=== PATIENT | male | born 1940 | race Caucasian/White ===

== ENCOUNTER → 2017-06-30 | Outpatient (CLI) | payer MEDICARE ==
[~2017-06-30] MED LIST: AMIO400T5 PO; AMLO5TAB2 PO; ASP81TEC PO; ASPI-84 PO; CARV3.122 PO; CARV6.252 PO; CYCL10TA9 PO; DABI150C5 PO; FISH1CAP15 PO; FURO40TA4 PO; GLUC-113 PO; HCT25T PO; IRB150T PO; IRBE300T9 PO; MULT-974 PO; NAPR-243 PO; OMEG-12 PO; OXYC-12 PO; POTA10CA43 PO; [UNRECOGNIZED DRUG - REMARK]
== END ==
LOC: CARD 13:38
PROVIDERS: ATTEND Physician Assistant
DX: I48.0 Paroxysmal atrial fibrillation (principal); I50.22 Chronic systolic (congestive) heart failure; I11.0 Hypertensive heart disease with heart failure; E78.2 Mixed hyperlipidemia
CPT/HCPCS: 93306

== ENCOUNTER 2018-05-07 13:03 | Outpatient (CLI) | payer MEDICARE ==
[~2018-05-07] VITALS: Ht 188 cm; Wt 112.5 kg
[2018-05-07 13:26] VITALS: BP 142/86
[2018-05-07] MEDS ORDERED: IRBE300T18 PO (13:52)
[2018-05-07] MEDS ORDERED: POTA10TA10 PO (13:52)
[2018-05-07] MEDS ORDERED: FISH1CAP15 PO (13:52)
[2018-05-07] MEDS ORDERED: GLUC-113 PO (13:52)
[2018-05-07] MEDS ORDERED: AMLO5TAB7 PO (13:52)
[2018-05-07] MEDS ORDERED: CARV6.252 PO (13:52)
[2018-05-07] MEDS ORDERED: MULT-178 PO (13:52)
[2018-05-07] MEDS ORDERED: FURO40TA4 PO (13:52)
[2018-05-07] MEDS ORDERED: APIX5TAB PO (13:52)
== END 2018-05-07 13:30 | disposition home or self-care (01) ==
LOC: PREOP 13:03
PROVIDERS: ATTEND Podiatrist Foot Surgery
DX: Z01.818 Encounter for other preprocedural examination (principal)
CPT/HCPCS: 87081

== ENCOUNTER 2018-05-11 06:23 | Day surgery (SDC) | payer MEDICARE ==
[~2018-05-11] VITALS: Ht 188 cm; Wt 108.0 kg
[~2018-05-11 06:23] MED LIST changes: +AMLO5TAB7 PO; +APIX5TAB PO; +IRBE300T18 PO; +MULT-178 PO; +POTA10TA10 PO
[2018-05-11] MEDS ORDERED: LACTATED RINGERS 1,000 ML IV PRN (06:28)
[2018-05-11] MEDS ORDERED: ceFAZolin INJECTION 1,000 MG in NS (IVPB) 50 ML IV ONE (06:30)
--- OUTSIDE RECORDS SUMMARY | 2018-05-11 06:40 | XMS REPORT | Continuity of Care Document ---
Author Author [facility] Organization [facility] Address Unknown Phone Unavailable Allergies Active Description Code Type Severity Reaction Onset Reported/Identified Relationship to Patient Clinical Status Yes No Known Drug Allergies [id number] Drug Allergy Unknown N/A 08/06/2008 Medications There is no data. Problems Date Dx Coded Attending Type Code Diagnosis Diagnosed By 12/28/2009 Ot 724.2 12/28/2009 Ot 791.9 10/29/2010 Ot 276.8 10/29/2010 Ot 401.9 10/29/2010 Ot 425.4 10/29/2010 Ot 427.31 11/29/2011 Ot 727.1 BUNION 01/28/2012 Ot 427.31 ATRIAL FIBRILLATION 01/28/2012 Ot 785.1 PALPITATIONS 04/04/2014 FRANKLIN KUHN DO Ot 327.23 OBSTRUCTIVE SLEEP APNEA (ADULT) (PEDIATR 05/15/2014 NIURKA ZALDIVAR MD Ot 401.9 05/15/2014 NIURKA ZALDIVAR MD Ot 427.31 05/15/2014 NIURKA ZALDIVAR MD P Ot 428.0 05/15/2014 NIURKA ZALDIVAR MD Ot 715.36 05/17/2014 NIURKA ZALDIVAR MD Ot 272.4 HYPERLIPIDEMIA NEC/NOS 05/17/2014 NIURKA ZALDIVAR MD P Ot 401.9 HYPERTENSION NOS 05/17/2014 NIURKA ZALDIVAR MD P Ot 425.4 PRIM CARDIOMYOPATHY NEC 05/17/2014 NIURKA ZALDIVAR MD Ot 427.31 ATRIAL FIBRILLATION 05/17/2014 NIURKA ZALDIVAR MD Ot 428.0 CONGESTIVE HEART FAILURE NOS 05/17/2014 NIURKA ZALDIVAR MD Ot 715.36 LOC OSTEOARTH NOS-L/LEG 05/17/2014 NIURKA ZALDIVAR MD Ot V03.82 PROPHYLACTIC VACC AGAINST STREPTOCOCCUS 06/03/2014 NIURKA ZALDIVAR MD Ot 715.36 06/03/2014 NIURKA ZALDIVAR MD Ot 780.79 06/03/2014 ZEN PARKS, NIURKA P Ot V72.63 06/03/2014 ZEN PARKS, NIURKA P Ot V72.81 06/03/2014 ZEN PARKS, NIURKA P Ot V72.83 06/03/2014 ZEN PARKS, NIURKA P Ot V74.8 09/17/2014 BASSAM PA, SCOTT K Ot 272.4 09/17/2014 BASSAM PA, SCOTT K Ot 401.9 09/17/2014 BASSAM PA, SCOTT K Ot 427.31 09/17/2014 ANNMARIE-LIZA PA, SCOTT K Ot 428.0 09/17/2014 BASSAM PA, SCOTT K Ot 272.4 09/17/2014 ANNMARIE-LIZA PA, SCOTT K Ot 401.9 09/17/2014 ANNMARIE-LIZA PA, SCOTT K Ot 427.31 09/17/2014 BASSAM PA, SCOTT K Ot 428.0 09/17/2014 BASSAM PA, SCOTT K Ot 272.4 09/17/2014 ANGUIANO-LIZA PA, SCOTT K Ot 401.9 09/17/2014 ANGUIANO-LIZA PA, SCOTT K Ot 427.31 09/17/2014 BASSAM PA, SCOTT K Ot 428.0 09/23/2014 Ot 401.9 09/23/2014 Ot 428.30 09/23/2014 Ot 397.0 09/23/2014 Ot 401.9 09/23/2014 Ot 424.0 09/23/2014 Ot 427.31 09/23/2014 Ot 428.0 09/23/2014 Ot 428.0 09/23/2014 Ot 397.0 09/23/2014 Ot 424.0 09/23/2014 Ot 428.0 09/23/2014 Ot 727.1 09/23/2014 Ot V72.83 09/23/2014 Ot V74.8 09/23/2014 Ot 397.0 09/23/2014 Ot 401.9 09/23/2014 Ot 424.0 09/23/2014 Ot 427.31 09/23/2014 Ot 428.0 09/23/2014 JHONY PARKS, MURTAZA Pena Ot 272.4 09/23/2014 JHONY PARKS, BASHAR J Ot 401.9 09/23/2014 JHONY PARKS, MURTAZA J Ot 427.31 09/23/2014 JHONY PARKS, MURTAZA J Ot 428.0 09/23/2014 ZEN PARKS, NIURKA P Ot 715.36 09/23/2014 ZEN PARKS, NIURKA P Ot 780.79 09/23/2014 ZEN PARKS, NIURKA P Ot V72.63 09/23/2014 ZEN PARKS, NIURKA P Ot V72.81 09/23/2014 ZEN PARKS, NIURKA P Ot V72.83 09/23/2014 ZEN PARKS, NIURKA P Ot V74.8 09/23/2014 ANGUIANO-LIZA PA, SCOTT K Ot 272.4 09/23/2014 ANGUIANO-LIZA PA, SCOTT K Ot 401.9 09/23/2014 ANGUIANO-LIZA PA, SCOTT K Ot 427.31 09/23/2014 ANGUIANO-LIZA PA, SCOTT K Ot 428.0 10/07/2014 ANGUIANO-LIZA PA, SCOTT K Ot 272.4 10/07/2014 ANGUIANO-LIZA PA, SCOTT K Ot 401.9 10/07/2014 ANGUIANO-LIZA PA, SCOTT K Ot 427.31 10/07/2014 ANGUIANO-LIZA PA, SCOTT K Ot 428.0 10/24/2014 ANGUIANO-LIZA PA, SCOTT K Ot 272.4 10/24/2014 ANGUIANO-LIZA PA, SCOTT K Ot 401.9 10/24/2014 ANGUIANO-LIZA PA, SCOTT K Ot 427.31 10/24/2014 ANGUIANO-LIZA PA, SCOTT K Ot 428.0 10/24/2014 JHONY PARKS, MURTAZA Pena Ot 428.0 10/24/2014 JHONY PARKS, MURTAZA Pena Ot 429.9 11/19/2014 JHONY PARKS, MURTAZA J Ot 428.0 11/19/2014 JHONY PARKS, MURTAZA J Ot 429.9 05/06/2015 JHONY PARKS, MURTAZA Pena Ot E78.2 05/06/2015 JHONY PARKS, MURTAZA Pena Ot I10 05/06/2015 JHONY PARKS, MURTAZA Pena Ot I48.0 05/06/2015 JHONY PARKS, MURTAZA Pena Ot I50.22 05/13/2015 MURTZAA BOOKER MD Ot E78.2 05/13/2015 MURTAZA BOOKER MD Ot I10 05/13/2015 MURTAZA BOOKER MD Ot I48.0 05/13/2015 MURTAZA BOOKER MD Ot I50.22 05/12/2016 Ot 397.0 TRICUSPID VALVE DISEASE 05/12/2016 Ot 401.9 HYPERTENSION NOS 05/12/2016 Ot 424.0 MITRAL VALVE DISORDER 05/12/2016 Ot 427.31 ATRIAL FIBRILLATION 05/12/2016 Ot 428.0 CONGESTIVE HEART FAILURE NOS 05/12/2016 Ot 428.0 CONGESTIVE HEART FAILURE NOS 05/12/2016 Ot 397.0 TRICUSPID VALVE DISEASE 05/12/2016 Ot 424.0 MITRAL VALVE DISORDER 05/12/2016 Ot 428.0 CONGESTIVE HEART FAILURE NOS 05/12/2016 Ot 727.1 BUNION 05/12/2016 Ot V72.83 EXAM PRE- OPERATIVE NEC 05/12/2016 Ot V74.8 SCREEN- BACTERIAL DIS NEC 05/12/2016 Ot 397.0 TRICUSPID VALVE DISEASE 05/12/2016 Ot 401.9 HYPERTENSION NOS 05/12/2016 Ot 424.0 MITRAL VALVE DISORDER 05/12/2016 Ot 427.31 ATRIAL FIBRILLATION 05/12/2016 Ot 428.0 CONGESTIVE HEART FAILURE NOS 05/12/2016 MURTAZA BOOKER MD Ot 272.4 HYPERLIPIDEMIA NEC/NOS 05/12/2016 MURTAZA BOOKER MD Ot 401.9 HYPERTENSION NOS 05/12/2016 MURTAZA BOOKER MD Ot 427.31 ATRIAL FIBRILLATION 05/12/2016 MURTAZA BOOKER MD Ot 428.0 CONGESTIVE HEART FAILURE NOS 05/12/2016 NIURKA ZALDIVAR MD Ot 715.36 LOC OSTEOARTH NOS-L/LEG 05/12/2016 NIURKA ZALDIVAR MD Ot 780.79 OTH MALAISE FATIGUE 05/12/2016 NIURKA ZALDIVAR MD Ot V72.63 PRE-PROCEDURAL LABORATORY EXAMINATION 05/12/2016 NIURKA ZALDIVAR MD Ot V72.81 [id number] CARDIOVASCULAR 05/12/2016 NIURKA ZALDIVAR MD Ot V72.83 EXAM PRE-OPERATIVE NEC 05/12/2016 NIURKA ZALDIVAR MD Ot V74.8 SCREEN-BACTERIAL DIS NEC 05/12/2016 SCOTT BRADSHAW Ot 272.4 HYPERLIPIDEMIA NEC/NOS 05/12/2016 SCOTT BRADSHAW Ot 401.9 HYPERTENSION NOS 05/12/2016 SCOTT BRADSHAW Ot 427.31 ATRIAL FIBRILLATION 05/12/2016 SCOTT BRADSHAW Ot 428.0 CONGESTIVE HEART FAILURE NOS 05/12/2016 MURTAZA BOOKER MD Ot 428.0 CONGESTIVE HEART FAILURE NOS 05/12/2016 MURTAZA BOOKER MD Ot 429.9 HEART DISEASE NOS 05/12/2016 MURTAZA BOOKER MD Ot E78.2 MIXED HYPERLIPIDEMIA 05/12/2016 MURTAZA BOOKER MD Ot I10 ESSENTIAL (PRIMARY) HYPERTENSION 05/12/2016 MURTAZA BOOKER MD Ot I48.0 PAROXYSMAL ATRIAL FIBRILLATION 05/12/2016 MURTAZA BOOKER MD Ot I50.22 CHRONIC SYSTOLIC (CONGESTIVE) HEART FAIL 05/13/2016 MURTAZA BOOKER MD Ot E78.2 MIXED HYPERLIPIDEMIA 05/13/2016 MURTAZA BOOKER MD Ot I11.0 HYPERTENSIVE HEART DISEASE WITH HEART FA 05/13/2016 MURTAZA BOOKER MD Ot I50.22 CHRONIC SYSTOLIC (CONGESTIVE) HEART FAIL 06/03/2016 MURTAZA BOOKER MD Ot E78.2 MIXED HYPERLIPIDEMIA 06/03/2016 MURTAZA BOOKER MD Ot I11.0 HYPERTENSIVE HEART DISEASE WITH HEART FA 06/03/2016 MURTAZA BOOKER MD Ot I50.22 CHRONIC SYSTOLIC (CONGESTIVE) HEART FAIL 06/09/2016 MURTAZA BOOKER MD Ot E78.2 MIXED HYPERLIPIDEMIA 06/09/2016 MURTAZA BOOKER MD Ot I11.0 HYPERTENSIVE HEART DISEASE WITH HEART FA 06/09/2016 MURTAZA BOOKER MD Ot I50.22 CHRONIC SYSTOLIC (CONGESTIVE) HEART FAIL 06/26/2017 Ot 397.0 TRICUSPID VALVE DISEASE 06/26/2017 Ot 401.9 HYPERTENSION NOS 06/26/2017 Ot 424.0 MITRAL VALVE DISORDER 06/26/2017 Ot 427.31 ATRIAL FIBRILLATION 06/26/2017 Ot 428.0 CONGESTIVE HEART FAILURE NOS 06/26/2017 MURTAZA BOOKER MD Ot 272.4 HYPERLIPIDEMIA NEC/NOS 06/26/2017 MURTAZA BOOKER MD Ot 401.9 HYPERTENSION NOS 06/26/2017 MURTAZA BOOKER MD Ot 427.31 ATRIAL FIBRILLATION 06/26/2017 MURTAZA BOOKER MD Ot 428.0 CONGESTIVE HEART FAILURE NOS 06/26/2017 NIURKA ZALDIVAR MD Ot 715.36 LOC OSTEOARTH NOS-L/LEG 06/26/2017 NIURKA ZALDIVAR MD Ot 780.79 OTH MALAISE FATIGUE 06/26/2017 NIURKA ZALDIVAR MD Ot V72.63 PRE-PROCEDURAL LABORATORY EXAMINATION 06/26/2017 NIURKA ZALDIVAR MD Ot V72.81 [id number] CARDIOVASCULAR 06/26/2017 NIURKA ZALDIVAR MD Ot V72.83 EXAM PRE-OPERATIVE NEC 06/26/2017 NIURKA ZALDIVAR MD Ot V74.8 SCREEN-BACTERIAL DIS NEC 06/26/2017 SCOTT BRADSHAW Ot 272.4 HYPERLIPIDEMIA NEC/NOS 06/26/2017 SCOTT BRADSHAW Ot 401.9 HYPERTENSION NOS 06/26/2017 SCOTT BRADSHAW Ot 427.31 ATRIAL FIBRILLATION 06/26/2017 SCOTT BRADSHAW Ot 428.0 CONGESTIVE HEART FAILURE NOS 06/26/2017 MURTAZA BOOKER MD Ot 428.0 CONGESTIVE HEART FAILURE NOS 06/26/2017 MURTAZA BOOKER MD Ot 429.9 HEART DISEASE NOS 06/26/2017 MURTAZA BOOKER MD Ot E78.2 MIXED HYPERLIPIDEMIA 06/26/2017 MURTAZA BOOKER MD Ot I10 ESSENTIAL (PRIMARY) HYPERTENSION 06/26/2017 MURTAZA BOOKER MD Ot I48.0 PAROXYSMAL ATRIAL FIBRILLATION 06/26/2017 MURTAZA BOOKER MD Ot I50.22 CHRONIC SYSTOLIC (CONGESTIVE) HEART FAIL 06/26/2017 MURTAZA BOOKER MD Ot E78.2 MIXED HYPERLIPIDEMIA 06/26/2017 MURTAZA BOOKER MD Ot I11.0 HYPERTENSIVE HEART DISEASE WITH HEART FA 06/26/2017 MURTAZA BOOKER MD Ot I50.22 CHRONIC SYSTOLIC (CONGESTIVE) HEART FAIL 07/03/2017 SCOTT BRADSHAW Ot E78.2 MIXED HYPERLIPIDEMIA 07/03/2017 SCOTT BRADSHAW Ot I11.0 HYPERTENSIVE HEART DISEASE WITH HEART FA 07/03/2017 ANGUIANO-LIZA PA, SCOTT K Ot I48.0 PAROXYSMAL ATRIAL FIBRILLATION 07/03/2017 BASSAM YANEZ, SCOTT K Ot I50.22 CHRONIC SYSTOLIC (CONGESTIVE) HEART FAIL 07/21/2017 BASSAM YANEZ, SCOTT K Ot E78.2 MIXED HYPERLIPIDEMIA 07/21/2017 BASSAM YANEZ, SCOTT K Ot I11.0 HYPERTENSIVE HEART DISEASE WITH HEART FA 07/21/2017 BASSAM YANEZ, SCOTT K Ot I48.0 PAROXYSMAL ATRIAL FIBRILLATION 07/21/2017 BASSAM YANEZ, SCOTT K Ot I50.22 CHRONIC SYSTOLIC (CONGESTIVE) HEART FAIL 07/26/2017 BASSAM YANEZ, SCOTT K Ot E78.2 MIXED HYPERLIPIDEMIA 07/26/2017 BASSAM YANEZ, SCOTT K Ot I11.0 HYPERTENSIVE HEART DISEASE WITH HEART FA 07/26/2017 BASSAM YANEZ, SCOTT K Ot I48.0 PAROXYSMAL ATRIAL FIBRILLATION 07/26/2017 BASSAM YANEZ, SCOTT K Ot I50.22 CHRONIC SYSTOLIC (CONGESTIVE) HEART FAIL 05/07/2018 JHONY PARKS, MURTAZA Pena Ot 272.4 HYPERLIPIDEMIA NEC/NOS 05/07/2018 MURTAZA BOOKER MD Ot 401.9 HYPERTENSION NOS 05/07/2018 MURTAZA BOOKER MD Ot 427.31 ATRIAL FIBRILLATION 05/07/2018 MURTAZA BOOKER MD Ot 428.0 CONGESTIVE HEART FAILURE NOS 05/07/2018 NIURKA ZALDIVAR MD Ot 715.36 LOC OSTEOARTH NOS-L/LEG 05/07/2018 NIURKA ZALDIVAR MD Ot 780.79 OTH MALAISE FATIGUE 05/07/2018 NIURKA ZALDIVAR MD Ot V72.63 PRE-PROCEDURAL LABORATORY EXAMINATION 05/07/2018 NIURKA ZALDIVAR MD Ot V72.81 [id number] CARDIOVASCULAR 05/07/2018 NIURKA ZALDIVAR MD Ot V72.83 EXAM PRE-OPERATIVE NEC 05/07/2018 NIURKA ZALDIVAR MD Ot V74.8 SCREEN-BACTERIAL DIS NEC 05/07/2018 SCOTT BRADSHAW Ot 272.4 HYPERLIPIDEMIA NEC/NOS 05/07/2018 SOCTT BRADSHAW Ot 401.9 HYPERTENSION NOS 05/07/2018 SCOTT BRADSHAW Ot 427.31 ATRIAL FIBRILLATION 05/07/2018 SCOTT BRADSHAW Ot 428.0 CONGESTIVE HEART FAILURE NOS 05/07/2018 JHONY PARKS, MURTAZA Pena Ot 428.0 CONGESTIVE HEART FAILURE NOS 05/07/2018 JHONY PARKS, MURTAZA Pena Ot 429.9 HEART DISEASE NOS 05/07/2018 JHONY PARKS, MURTAZA Pena Ot E78.2 MIXED HYPERLIPIDEMIA 05/07/2018 JHONY PARKS, MURTAZA Pena Ot I10 ESSENTIAL (PRIMARY) HYPERTENSION 05/07/2018 MURTAZA BOOKER MD Ot I48.0 PAROXYSMAL ATRIAL FIBRILLATION 05/07/2018 MURTAZA BOOKER MD Ot I50.22 CHRONIC SYSTOLIC (CONGESTIVE) HEART FAIL 05/07/2018 MURTAZA BOOKER MD Ot E78.2 MIXED HYPERLIPIDEMIA 05/07/2018 MURTAZA BOOKER MD Ot I11.0 HYPERTENSIVE HEART DISEASE WITH HEART FA 05/07/2018 MURTAZA BOOKER MD Ot I50.22 CHRONIC SYSTOLIC (CONGESTIVE) HEART FAIL 05/07/2018 SCOTT BRADSHAW Ot E78.2 MIXED HYPERLIPIDEMIA 05/07/2018 SCOTT BRADSHAW Ot I11.0 HYPERTENSIVE HEART DISEASE WITH HEART FA 05/07/2018 SCOTT BRADSHAW Ot I48.0 PAROXYSMAL ATRIAL FIBRILLATION 05/07/2018 SCOTT BRADSHAW Ot I50.22 CHRONIC SYSTOLIC (CONGESTIVE) HEART FAIL 05/09/2018 STEFFI FARIA DPM Ot Z01.818 ENCOUNTER FOR OTHER PREPROCEDURAL EXAMIN Procedures Code Description Performed By Performed On 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 Visit Date/Time Discharge Status Pt. Type Provider Facility Loc./Unit Complaint [id number] 05/07/2018 13:03:00 05/07/2018 13:30:00 DIS Outpatient STEFFI FARIA DPM [facility] PREOP TAILOR BUNION [id number] 06/30/2017 13:38:00 06/30/2017 23:59:59 CLS Outpatient SCOTT BRADSHAW [facility] CARD I48.0 AF [id number] 05/12/2016 11:39:00 05/12/2016 23:59:59 CLS Outpatient MURTAAZ BOOKER MD [facility] CARD CHF, HTN [id number] 04/16/2015 08:47:00 04/16/2015 23:59:59 CLS Outpatient MURTAZA BOOKER MD [facility] CARD AF,CHF,HTN,HLP [id number] 09/23/2014 12:34:00 09/23/2014 23:59:59 CLS Outpatient MURTAZA BOOKER MD [facility] CARD CHF, DYASTOLIC DYSFUNCTION [id number] 09/12/2014 13:23:00 09/12/2014 23:59:59 CLS Outpatient SCOTT BRADSHAW [facility] CARD AFIB CHF HTN HLE [id number] 05/14/2014 05:54:00 05/17/2014 10:32:00 DIS Inpatient NIURKA ZALDIVAR MD [facility] SURGICAL RIGHT KNEE OSTEOARTHRITIS [id number] 05/07/2014 11:56:00 05/07/2014 23:59:59 CLS Outpatient NIURKA ZALDIVAR MD [facility] PREOP RIGHT KNEE OSTEOARTHRITIS [id number] 04/03/2014 21:06:00 04/04/2014 06:15:00 DIS Outpatient FRANKLIN KUHN DO [facility] SLEEP SNORING,AVELINO, [id number] 03/12/2014 09:36:00 03/12/2014 23:59:59 CLS Outpatient MURTAZA BOOKER MD [facility] CARD AFIB [id number] 05/11/2018 08:00:00 PEN Preadmit STEFFI FARIA DPM [facility] SDC TAILOR BUNION [id number] 09/23/2014 12:34:00 Document Registration [id number] 09/23/2014 12:34:00 Document Registration [id number] 09/23/2014 12:34:00 Document Registration [id number] 09/23/2014 12:34:00 Document Registration [id number] 09/23/2014 12:34:00 Document Registration [id number] 09/11/2012 14:00:00 Document Registration [id number] 01/28/2012 20:32:00 Document Registration [id number] 11/22/2011 12:51:00 Document Registration [id number] 01/10/2011 11:18:00 Document Registration [id number] 10/27/2010 00:26:00 Document Registration
[2018-05-11 07:00] VITALS: BP 145/84
[2018-05-11] MEDS ORDERED: CATHETER FLUSH 10 ML SYR IV PRN (07:00)
[2018-05-11] MEDS ORDERED: SEVOFLURANE (ULTANE) 15 ML INHAL SOLN ONE (07:02)
[2018-05-11] MEDS ORDERED: ONDANSETRON 4 MG/2 ML (SDV) Z0FRAN ONE (07:02)
[2018-05-11] MEDS ORDERED: LIDOCAINE PF 2% 5 ML (XYLOCAINE) VIAL ONE (07:02)
[2018-05-11] MEDS ORDERED: proPOfol 200 MG/20 ML (DIPRIVAN) VIAL IV ONE ×2 (07:02→09:13)
[2018-05-11] MEDS ORDERED: MIDAZOLAM 2 MG/2 ML (VERSED) VIAL ONE (07:03)
[2018-05-11] MEDS ORDERED: fentaNYL INJECTION 100 MCG/2 ML AMP ONE (07:03)
[2018-05-11] MEDS ORDERED: BUPIVACAINE 0.5% 30 ML (SENSORCAINE) VIAL ONE (07:07)
[2018-05-11] MEDS ORDERED: MEPIVACAINE (CARBOCAINE) 2% 50 ML VIAL ONE (07:07)
[2018-05-11] MEDS ORDERED: MEPERIDINE (DEMEROL) INJ 50 MG/ML IVP ONE (09:30)
[2018-05-11] MEDS ORDERED: ONDANSETRON 4 MG/2 ML (SDV) Z0FRAN IVP PRN (09:30)
[2018-05-11] MEDS ORDERED: morphine INJ 10 MG/ML 1ML (SYR OR VIAL) IVP ONE (09:30)
[2018-05-11 09:50] VITALS: BP 148/78
--- NOTE | 2018-05-11 10:15 | Diagnostic Imaging Report ---
EXAMINATION: Right foot, 2 views. COMPARISON: None available. HISTORY: 77-year-old male, postoperative evaluation of the right foot. FINDINGS: There is a bipartite medial sesamoid. There are limitations of the exam relating to material overlying the patient as well as the two-view technique. There is apparent widening at the level of the fifth metatarsophalangeal joint. There is question of bone irregularity at the base of the fifth proximal phalanx. There is a calcaneal heel spur. There is no large ankle joint effusion. There is a multipart os navicularis. The additional joint spaces appear well preserved. IMPRESSION: 1. Limitations of the exam relating to material overlying the patient as well as the two-view technique. 2. Apparent widening of the fifth metatarsophalangeal joint with irregularity at the base of the fifth proximal phalanx. Recommend correlation with surgical history as well as preoperative imaging. 3. Calcaneal heel spur. Dictated by: Dictated on workstation # [id number]
[2018-05-11 10:20] VITALS: BP 143/87
[2018-05-11] MEDS ORDERED: ACHD5005 PO (10:47)
[2018-05-11 10:50] VITALS: BP 177/92
--- NOTE | 2018-05-11 13:01 | OPERATIVE REPORT ---
DATE OF SERVICE: 05/11/2018 PREOPERATIVE DIAGNOSES: 1. Hypertrophied plantar flexed fifth metatarsal, right. 2. Hammered fifth digit, right. POSTOPERATIVE DIAGNOSES: 1. Hypertrophied plantar flexed fifth metatarsal, right. 2. Hammered fifth digit, right. NAME OF OPERATION: 1. Fifth metatarsal head resection. 2. 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 DESCRIPTION OF OPERATION: With the patient in supine position, having been infected by a regional anesthetic using 9 mL of a 50:50 mixture of 0.5% Marcaine plain and 1% Carbocaine plain with anesthesia assist. Sterile prep and drape were performed and a Darrel bandage was applied above the level of the right ankle. A 4 cm curvilinear incision was made over the dorsal aspect of the fifth metatarsal head and deepened with sharp and blunt dissection. Vital structures were identified and retracted. Superficial veins were cauterized. Dissection was carried deep to the fifth MPJ. The capsule and periosteum were incised in linear fashion and reflected from the bone dorsally, medially, laterally and plantarly. The fifth metatarsal head was resected in an angular fashion, so that the planar surface was parallel to the plantar surface of the foot. The capsule was closed with continuous suture of 3-0 Vicryl. Superficial fascia closed with continuous suture of 4-0 Vicryl and the skin was reapproximated with continuous locked suture of 4-0 Prolene. A skin scribe was then used to outline the medial margin of the fifth digit. This was interposed on to the fourth digit and an incision was made just through the dermis. Following this outline, so that the fourth webspace could be resected without disturbing the other surrounding tissues or underlying vasculature. The fourth webspace was then resected and the opposing incision lines were sutured with continuous locked suture of 4-0 Vicryl. Tourniquet was released prior to the performance of the syndactyly. Blood flow returned to the digits was within normal limits. Blood loss was estimated at 100 mL. There was Adaptic and a sterile corrective compressive wet to dry dressing were applied, carried to above the level of the ankle and covered with circular Coban. The patient tolerated the procedure well and left the OR to recovery in apparent good condition. He is to return to the office in 2 weeks for appropriate followup care. Job ID: [id number] DocumentID: [id number] Dictated Date: 05/11/2018 09:56:29 Reserve Officer Date: 05/11/2018 13:01:22 Dictated By: STEFFI FARIA DPM
--- NOTE | 2018-05-11 13:07 | Anesthesia-General Post-Op ---
MAC Patient Condition Mental Status/LOC: Same as Preop Cardiovascular: Satisfactory Nausea/Vomiting: Absent Respiratory: Satisfactory Pain: Controlled Complications: Absent Post Op Complications Complications None Follow Up Care/Instructions Patient Instructions None needed. Anesthesiology Discharge Order Discharge Order Patient is doing well, no complaints, stable vital signs, no apparent adverse anesthesia problems. No complications reported per nursing. BARBIE JEAN CRNA May 11, 2018 13:07
== END 2018-05-11 11:00 | disposition home or self-care (01) ==
LOC: SDC 06:23
PROVIDERS: ATTEND Podiatrist Foot Surgery
DX: M89.371 Hypertrophy of bone, right ankle and foot (principal); M20.41 Other hammer toe(s) (acquired), right foot; I48.91 Unspecified atrial fibrillation; I10 Essential (primary) hypertension; I42.8 Other cardiomyopathies; E78.5 Hyperlipidemia, unspecified; N40.0 Benign prostatic hyperplasia without lower urinary tract symptoms; G47.33 Obstructive sleep apnea (adult) (pediatric); E66.9 Obesity, unspecified; Z68.30 Body mass index [BMI] 30.0-30.9, adult; Z79.01 Long term (current) use of anticoagulants; Z79.899 Other long term (current) drug therapy
CPT/HCPCS: 73620

== ENCOUNTER 2018-06-11 06:09 | Outpatient (CLI) | payer MEDICARE ==
[~2018-06-11] VITALS: Ht 188 cm; Wt 108.0 kg
[~2018-06-11 06:09] MED LIST changes: +ACHD5005 PO
== END 2018-06-11 13:00 | disposition home or self-care (01) ==
LOC: PREOP 06:09
PROVIDERS: ATTEND Podiatrist Foot Surgery
DX: Z01.818 Encounter for other preprocedural examination (principal)

== ENCOUNTER 2018-06-15 06:08 | Day surgery (SDC) | payer MEDICARE ==
[~2018-06-15] VITALS: Ht 188 cm; Wt 108.4 kg
--- OUTSIDE RECORDS SUMMARY | 2018-06-15 06:11 | XMS REPORT | Continuity of Care Document ---
Author Author [facility] Organization [facility] Address Unknown Phone Unavailable Allergies Active Description Code Type Severity Reaction Onset Reported/Identified Relationship to Patient Clinical Status Yes No Known Drug Allergies [id number] Drug Allergy Unknown N/A 08/06/2008 Medications There [...] MD Ot 401.9 05/15/2014 NIURKA ZALDIVAR MD P Ot 427.31 05/15/2014 NIURKA ZALDIVAR MD P [...] PARKS, NIURKA P Ot V72.83 09/23/2014 ZEN APRKS, NIURKA P Ot V74.8 09/23/2014 ANGUIANO-LIZA PA, [...] JHONY PARKS, MURTAZA Pena Ot I50.22 05/13/2015 MURTAZA BOOKER MD Ot E78.2 05/13/2015 MURTAZA BOOKER [...] EXAMINATION 05/12/2016 NIURKA ZALDIVAR MD Ot V72.81 [id number] CARDIOVASCULAR 05/12/2016 NIURKA ZALDIVAR MD Ot V72.83 [...] EXAMINATION 06/26/2017 NIURKA ZALDIVAR MD Ot V72.81 [id number] CARDIOVASCULAR 06/26/2017 NIURKA ZALDIVAR MD Ot V72.83 [...] Ot E78.2 MIXED HYPERLIPIDEMIA 07/21/2017 BASSAM YANEZ, SCTOT K Ot I11.0 HYPERTENSIVE HEART DISEASE WITH [...] 428.0 CONGESTIVE HEART FAILURE NOS 05/07/2018 NIURKA ZALDIAVR MD Ot 715.36 LOC OSTEOARTH NOS-L/LEG 05/07/2018 NIURKA ZALDIVAR MD Ot 780.79 OTH MALAISE FATIGUE 05/07/2018 NIURKA ZALDIVAR MD Ot V72.63 PRE-PROCEDURAL LABORATORY EXAMINATION 05/07/2018 NIURKA ZALDIVAR MD Ot V72.81 [id number] CARDIOVASCULAR 05/07/2018 NIURKA ZALDIVAR MD Ot V72.83 EXAM PRE-OPERATIVE NEC 05/07/2018 NIURKA ZALDIVAR MD Ot V74.8 SCREEN-BACTERIAL DIS NEC 05/07/2018 SCOTT BRADSHAW Ot 272.4 HYPERLIPIDEMIA NEC/NOS 05/07/2018 SCOTT BRADSHAW Ot 401.9 HYPERTENSION NOS 05/07/2018 SCOTT BRADSHAW Ot 427.31 ATRIAL FIBRILLATION 05/07/2018 SCOTT BRADSHAW Ot 428.0 CONGESTIVE HEART FAILURE NOS 05/07/2018 JHONY PARKS, MURTAZA Pena Ot 428.0 CONGESTIVE HEART FAILURE NOS 05/07/2018 JHONY PARKS, MURTAZA Pena Ot 429.9 HEART DISEASE NOS 05/07/2018 JHONY PARKS, MURTAZA Pena Ot E78.2 MIXED HYPERLIPIDEMIA 05/07/2018 MURTAZA BOOKER MD Ot I10 ESSENTIAL (PRIMARY) HYPERTENSION 05/07/2018 MURTAZA [...] Ot Z01.818 ENCOUNTER FOR OTHER PREPROCEDURAL EXAMIN 05/11/2018 STEFFI FARIA DPM Ot E66.9 OBESITY, UNSPECIFIED 05/11/2018 STEFFI FARIA DPM Ot E78.5 HYPERLIPIDEMIA, UNSPECIFIED 05/11/2018 STEFFI FARIA DPM Ot G47.33 OBSTRUCTIVE SLEEP APNEA (ADULT) (PEDIATR 05/11/2018 STEFFI FARIA DPM Ot I10 ESSENTIAL (PRIMARY) HYPERTENSION 05/11/2018 STEFFI FARIA DPM Ot I42.8 OTHER CARDIOMYOPATHIES 05/11/2018 STEFFI FARIA DPM Ot I48.91 UNSPECIFIED ATRIAL FIBRILLATION 05/11/2018 STEFFI FARIA DPM Ot M20.41 OTHER HAMMER TOE(S) (ACQUIRED), RIGHT FO 05/11/2018 FARIA DPM, STEFFI P Ot 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, RIGHT ANKLE AND SERENITY 05/11/2018 FARIA DPM, STEFFI P Ot N40.0 BENIGN PROSTATIC HYPERPLASIA WITHOUT LOW 05/11/2018 FARIA DPM, STEFFI P Ot Z68.30 BODY MASS INDEX (BMI) 30.0-30.9, ADULT 05/11/2018 FARIA DPM, STEFFI P Ot Z79.01 FORENSIC TECHNICIAN (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 OF ANTICOAGULANT 05/11/2018 FARIA DPM, STEFFI P Ot Z79.899 OTHER FORENSIC TECHNICIAN (CURRENT) DRUG THERAPY 05/15/2018 FARIA DPM, STEFFI P Ot E66.9 OBESITY, UNSPECIFIED 05/15/2018 FARIA DPM, STEFFI P Ot E78.5 HYPERLIPIDEMIA, UNSPECIFIED 05/15/2018 FARIA DPM, STEFFI P Ot G47.33 OBSTRUCTIVE SLEEP APNEA (ADULT) (PEDIATR 05/15/2018 FARIA DPM, STEFFI P Ot I10 ESSENTIAL (PRIMARY) HYPERTENSION 05/15/2018 FARIA DPM, STEFFI P Ot I42.8 OTHER CARDIOMYOPATHIES 05/15/2018 FARIA DPM, STEFFI P Ot I48.91 UNSPECIFIED ATRIAL FIBRILLATION 05/15/2018 FARIA DPM, STEFFI P Ot M20.41 OTHER HAMMER TOE(S) (ACQUIRED), RIGHT FO 05/15/2018 FARIA DPM, STEFFI P Ot 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, RIGHT ANKLE AND SERENITY 05/15/2018 FARIA DPM, STEFFI P Ot N40.0 BENIGN PROSTATIC HYPERPLASIA WITHOUT LOW 05/15/2018 FARIA DPM, STEFFI P Ot Z68.30 BODY MASS INDEX (BMI) 30.0-30.9, ADULT 05/15/2018 FARIA DPM, STEFFI P Ot Z79.01 FORENSIC TECHNICIAN (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 OF ANTICOAGULANT 05/15/2018 FARIA DPM, STEFFI P Ot Z79.899 OTHER FORENSIC TECHNICIAN (CURRENT) DRUG THERAPY 05/15/2018 FARIA DPM, STEFFI P Ot E66.9 OBESITY, UNSPECIFIED 05/15/2018 FARIA DPM, STEFFI P Ot E78.5 HYPERLIPIDEMIA, UNSPECIFIED 05/15/2018 FARIA DPM, STEFFI P Ot G47.33 OBSTRUCTIVE SLEEP APNEA (ADULT) (PEDIATR 05/15/2018 FARIA DPM, STEFFI P Ot I10 ESSENTIAL (PRIMARY) HYPERTENSION 05/15/2018 STEFFI FARIA DPM Ot I42.8 OTHER CARDIOMYOPATHIES 05/15/2018 STEFFI FARIA DPM Ot I48.91 UNSPECIFIED ATRIAL FIBRILLATION 05/15/2018 STEFFI FARIA DPM Ot M20.41 OTHER HAMMER TOE(S) (ACQUIRED), RIGHT FO 05/15/2018 STEFFI FARIA DPM Ot 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, RIGHT ANKLE AND SERENITY 05/15/2018 STEFFI FARIA DPM Ot N40.0 BENIGN PROSTATIC HYPERPLASIA WITHOUT LOW 05/15/2018 STEFFI FARIA DPM Ot Z68.30 BODY MASS INDEX (BMI) 30.0-30.9, ADULT 05/15/2018 STEFFI FARIA DPM Ot Z79.01 MCFP (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 OF ANTICOAGULANT 05/15/2018 STEFFI FARIA DPM Ot Z79.899 OTHER FORENSIC TECHNICIAN (CURRENT) DRUG THERAPY Procedures Code Description Performed By Performed On 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 Visit Date/Time Discharge Status Pt. Type Provider Facility Loc./Unit Complaint [id number] 06/11/2018 06:09:00 06/11/2018 13:00:00 DIS Outpatient STEFFI FARIA DPM [facility] PREOP TAILOR BUNION LEFT FOOT [id number] 05/11/2018 06:23:00 05/11/2018 11:00:00 DIS Outpatient STEFFI FARIA DPM [facility] TAILOR BUNION [id number] 05/07/2018 13:03:00 05/07/2018 13:30:00 DIS Outpatient STEFFI FARIA DPM [facility] PREOP TAILOR BUNION [id number] 06/30/2017 13:38:00 06/30/2017 23:59:59 CLS Outpatient SCOTT BRADSHAW [facility] CARD I48.0 AF [id number] 05/12/2016 11:39:00 05/12/2016 23:59:59 CLS Outpatient MURTAZA BOOKER MD [facility] CARD CHF, HTN [id number] 04/16/2015 08:47:00 04/16/2015 23:59:59 CLS Outpatient MURTAZA BOOKER MD [facility] CARD AF,CHF,HTN,HLP [id number] 09/23/2014 12:34:00 09/23/2014 23:59:59 CLS Outpatient MURTAZA BOOKER MD [facility] CARD CHF, DYASTOLIC DYSFUNCTION [id number] 09/12/2014 13:23:00 09/12/2014 23:59:59 CLS Outpatient SCOTT BRADSHAW [facility] CARD AFIB CHF HTN HLE [id number] 05/14/2014 05:54:00 05/17/2014 10:32:00 DIS Inpatient NIURKA ZALDIVAR MD [facility] SURGICAL RIGHT KNEE OSTEOARTHRITIS [id number] 05/07/2014 11:56:00 05/07/2014 23:59:59 CLS Outpatient NIURKA ZALDIVAR MD [facility] PREOP RIGHT KNEE OSTEOARTHRITIS [id number] 04/03/2014 21:06:00 04/04/2014 06:15:00 DIS Outpatient FRANKLIN KUHN DO [facility] SLEEP SNORING,AVELINO, [id number] 03/12/2014 09:36:00 03/12/2014 23:59:59 CLS Outpatient MURTAZA BOOKER MD [facility] CARD AFIB [id number] 06/15/2018 08:00:00 PEN Preadmit STEFFI FARIA DPM [facility] SDC TAILOR BUNION LEFT FOOT [id number] 09/23/2014 12:34:00 Document Registration [id number] 09/23/2014 12:34:00 Document Registration [id number] 09/23/2014 12:34:00 Document Registration [id number] 09/23/2014 12:34:00 Document Registration [id number] 09/23/2014 12:34:00 Document Registration [id number] 09/11/2012 14:00:00 Document Registration [id number] 01/28/2012 20:32:00 Document Registration [id number] 11/22/2011 12:51:00 Document Registration [id number] 01/10/2011 11:18:00 Document Registration [id number] 10/27/2010 00:26:00 Document Registration
[2018-06-15 06:20] VITALS: BP 120/81
[2018-06-15] MEDS ORDERED: ceFAZolin INJECTION 1,000 MG in NS (IVPB) 50 ML IV ONE (06:30)
[2018-06-15] MEDS: LACTATED RINGERS 1,000 ML IV PRN ×2 (06:35→09:07)
[2018-06-15] MEDS ORDERED: ceFAZolin 1,000 MG/10 ML (ANCEF) VIAL ONE (06:41)
[2018-06-15] MEDS ORDERED: NS (IVPB) 50 ML ONE (06:41)
[2018-06-15] MEDS ORDERED: PROPOFOL INJECTION 50 ML IV ONE (06:58)
[2018-06-15] MEDS ORDERED: MIDAZOLAM 2 MG/2 ML (VERSED) VIAL ONE (07:19)
[2018-06-15] MEDS ORDERED: LIDOCAINE PF 2% 5 ML (XYLOCAINE) VIAL ONE (07:19)
[2018-06-15] MEDS ORDERED: BUPIVACAINE 0.5% 30 ML (SENSORCAINE) VIAL ONE (07:22)
[2018-06-15] MEDS ORDERED: DEXAMETHASONE 10 MG/ML (DECADRON) 1 ML VIAL ONE (07:22)
[2018-06-15] MEDS ORDERED: MEPIVACAINE (CARBOCAINE) 2% 50 ML VIAL ONE (07:22)
--- NOTE | 2018-06-15 07:32 | Progress Note-Pre Operative ---
Pre-Operative Progress Note H&P Reviewed The H&P was reviewed, patient examined and no changes noted. Date Seen by Provider: Jun 15, 2018 Time Seen by Provider: 07:30 Date H&P Reviewed: Jun 15, 2018 Time H&P Reviewed: 07:31 Pre-Operative Diagnosis: tailors bunion left foot with hammer toe fifth digit. STEFFI FARIA DPM Jun 15, 2018 07:32
[2018-06-15] MEDS ORDERED: fentaNYL INJECTION 100 MCG/2 ML AMP ONE (07:51)
[2018-06-15] MEDS ORDERED: LIDOCAINE/EPI 1%-1:200,000 (XYLOCAINE) 10 ML VIAL ONE (08:14)
[2018-06-15] MEDS ORDERED: DEXAMETHASONE 4 MG/ML SDV (DECADRON) INJ ONE (09:15)
[2018-06-15] MEDS ORDERED: LACTATED RINGERS 1,000 ML IV SCH (09:29)
--- NOTE | 2018-06-15 09:29 | Progress Note-Post Operative ---
Post-Operative Progess Note Surgeon (s)/Vocational Technical Education Teacher (s) Surgeon STEFFI FARIA DPM Vocational Technical Education Teacher: none Pre-Operative Diagnosis tailors bunion left foot with hammer toe fifth digit. Post-Operative Diagnosis same Procedure & Operative Findings Date of Procedure 06/15/18 Procedure Performed/Findings fifth metatarsal head resection with syndactly of fourth and fifth digit left foot. Anesthesia Type regional with assist Estimated Blood Loss Estimated blood loss (mL): min Specimens/Packing Specimens Removed none Packing: none STEFFI FARIA DPM Jun 15, 2018 09:29
[2018-06-15] MEDS ORDERED: morphine INJ 10 MG/ML 1ML (SYR OR VIAL) IVP ONE (09:30)
[2018-06-15] MEDS ORDERED: ONDANSETRON 4 MG/2 ML (SDV) Z0FRAN IVP PRN (09:30)
[2018-06-15] MEDS ORDERED: HYDROcodone/APAP 5 MG/325 MG (LORTAB) TAB PO PRN (09:30)
--- NOTE | 2018-06-15 09:33 | Discharge Instructions ---
Discharge Instructions Discharge Medications New, Converted or Re-Newed RX: RX Given to Pt/Family Patient Instructions Patient Instructions 1. Follow up in office in 2 weeks. 2. Diet as tolerated. 3. Activity as tolerated. Activity & Diet Activity as Tolerated: Yes STEFFI FARIA DPM Jun 15, 2018 09:33
[2018-06-15 09:40] VITALS: BP 135/74
--- NOTE | 2018-06-15 09:59 | Diagnostic Imaging Report ---
Indication: Postop. Time of exam: 9:31 AM 2 views of the left foot demonstrate postop changes to the distal fifth metatarsal where there has been resection of the metatarsal head. Resection margins appear smooth. Remaining metatarsals are intact. Midfoot is unremarkable. There is a large plantar calcaneal spur. Impression: Postop changes, as described. Dictated by: Dictated on workstation # [id number]
[2018-06-15 10:10] VITALS: BP 141/78
[2018-06-15 10:35] VITALS: BP 141/78
--- NOTE | 2018-06-15 12:19 | Anesthesia-General Post-Op ---
MAC Patient Condition Mental Status/LOC: Same as Preop Cardiovascular: Satisfactory Nausea/Vomiting: Absent Respiratory: Satisfactory Pain: Controlled Complications: Absent Post Op Complications Complications None Follow Up Care/Instructions Patient Instructions None needed. Anesthesiology Discharge Order Discharge Order Patient is doing well, no complaints, stable vital signs, no apparent adverse anesthesia problems. No complications reported per nursing. AMELIA LOVING CRNA Jun 15, 2018 12:19
--- NOTE | 2018-06-15 16:02 | OPERATIVE REPORT ---
DATE OF SERVICE: 06/15/2018 PREOPERATIVE DIAGNOSES: 1. Contracted fifth digit, left foot. 2. Tailor's bunion, left foot. POSTOPERATIVE DIAGNOSES: 1. Contracted fifth digit, left foot. 2. Tailor's bunion, left foot. NAME OF OPERATION: 1. Fifth metatarsal head resection, left foot. 2. Flexor tenotomy with syndactylization fourth and fifth digit, left foot. DESCRIPTION OF OPERATION: With the patient in supine position, having been affected by regional anesthetic utilizing 9 mL of 50:50 mixture of 0.5% Marcaine plain and 1% Carbocaine plain. Additional anesthesia was instilled using Xylocaine with epinephrine to control bleeding. A 4 cm linear incision was made at the lateral plantar aspect of the fifth metatarsal head. This was deepened with sharp and blunt dissection. Vital structures identified and retracted. Superficial veins were cauterized. Dissection was carried deep to the fifth MPJ and this was incised in a linear fashion. Capsule and periosteum were freed from the dorsal, medial and lateral aspect of the fifth metatarsal head and the fifth metatarsal head was resected. Approximately, 1.5 cm proximal to the articular surface in an angular fashion to provide a stable base for weightbearing. The distal stump was remodeled. Area was flushed with copious amounts of saline and the capsule was closed with continuous lock suture of 3-0 Vicryl. Skin was closed with continuous locked suture of 4-0 Vicryl. A skin scribe was then placed in the medial margin of the fifth digit. This was coapted with the fourth and an incision was made around the fourth interspace to excise just the skin of the fourth interspace. This was dissected free from surrounding tissue and superficial veins were ligated. A flexor tenotomy was also performed at the PIPJ of the fifth digit through this incision to release contracture at the PIPJ fifth left. The area was flushed with copious amounts of saline and the skin was closed with continuous locked suture of 4-0 Vicryl. Decadron was introduced into the operative site to control postoperative pain and swelling. Adaptic and a sterile corrective compressive wet to dry Betadine dressing were applied, carried above the level of the left ankle covered with circular Coban. The patient tolerated the procedure well with minimal blood loss, left the OR to PAR in apparent good condition. He is to return to the office in two weeks for appropriate followup care. Job ID: [id number] DocumentID: [id number] Dictated Date: 06/15/2018 09:39:21 Tailings Worker Date: 06/15/2018 16:01:56 Dictated By: STEFFI FARIA DPM
== END 2018-06-15 10:35 | disposition home or self-care (01) ==
LOC: SDC 06:08
PROVIDERS: ATTEND Podiatrist Foot Surgery
DX: M21.622 Bunionette of left foot (principal); M24.575 Contracture, left foot; I10 Essential (primary) hypertension; I48.91 Unspecified atrial fibrillation; G47.33 Obstructive sleep apnea (adult) (pediatric); Z79.899 Other long term (current) drug therapy
CPT/HCPCS: 73620; 87081

== ENCOUNTER 2018-07-06 19:21 | Emergency (ER) | payer MEDICARE ==
[~2018-07-06] VITALS: Ht 188 cm; Wt 108.4 kg
[~2018-07-06 19:21] MED LIST changes: -AMLO5TAB7 PO; +AMLO5TAB9 PO
--- OUTSIDE RECORDS SUMMARY | 2018-07-06 19:27 | XMS REPORT | Continuity of Care Document ---
Author Author [facility] Organization [facility] Address Unknown Phone Unavailable Allergies Active Description Code Type Severity Reaction Onset Reported/Identified Relationship to Patient Clinical Status Yes No Known Drug Allergies [id number] Drug Allergy Unknown N/A 08/06/2008 Medications There [...] JHONY PARKS, MURTAZA J Ot 427.31 09/23/2014 JOHNY PARKS, MURTAZA J Ot 428.0 09/23/2014 ZEN [...] EXAMINATION 05/12/2016 NIURKA ZALDIVAR MD Ot V72.81 [id number] CARDIOVASCULAR 05/12/2016 NIURKA ZALDIVAR MD Ot V72.83 [...] EXAMINATION 06/26/2017 NIURKA ZALDIVAR MD Ot V72.81 [id number] CARDIOVASCULAR 06/26/2017 NIURKA ZALDIVAR MD Ot V72.83 [...] BOOKER MD Ot 427.31 ATRIAL FIBRILLATION 05/07/2018 MRUTAZA BOOKER MD Ot 428.0 CONGESTIVE HEART FAILURE NOS 05/07/2018 NIURKA ZALDIVAR MD Ot 715.36 LOC OSTEOARTH NOS-L/LEG 05/07/2018 NIURKA ZALDIVAR MD Ot 780.79 OTH MALAISE FATIGUE 05/07/2018 NIURKA ZALDIVAR MD Ot V72.63 PRE-PROCEDURAL LABORATORY EXAMINATION 05/07/2018 NIURKA ZALDIVAR MD Ot V72.81 [id number] CARDIOVASCULAR 05/07/2018 NIURKA ZALDIVAR MD Ot V72.83 [...] 05/11/2018 FARIA DPM, STEFFI P Ot Z79.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 (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 OF ANTICOAGULANT 05/11/2018 FARIA DPM, STEFFI P Ot Z79.899 OTHER EMPLOYMENT SUPERVISOR (CURRENT) DRUG THERAPY 05/15/2018 FARIA DPM, STEFFI [...] 05/15/2018 FARIA DPM, STEFFI P Ot Z79.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 SUPERVISOR (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 OF ANTICOAGULANT 05/15/2018 FARIA DPM, STEFFI P Ot Z79.899 OTHER EMPLOYMENT SUPERVISOR (CURRENT) DRUG THERAPY 05/15/2018 FARIA DPM, STEFFI P Ot E66.9 OBESITY, UNSPECIFIED 05/15/2018 FARIA DPM, STEFFI P Ot E78.5 HYPERLIPIDEMIA, UNSPECIFIED 05/15/2018 FARIA DPM, STEFFI P Ot G47.33 OBSTRUCTIVE SLEEP APNEA (ADULT) (PEDIATR 05/15/2018 FARIA DPM, STEFFI P Ot I10 ESSENTIAL (PRIMARY) HYPERTENSION 05/15/2018 FARIA DPM, STEFFI P Ot I42.8 OTHER CARDIOMYOPATHIES 05/15/2018 FARIA DPAde, STEFFI P Ot I48.91 UNSPECIFIED ATRIAL FIBRILLATION 05/15/2018 FARIA DPM, STEFFI P Ot M20.41 OTHER HAMMER TOE(S) (ACQUIRED), RIGHT FO 05/15/2018 BIENVENIDO DPAde, STEFFI Huerta Ot 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, RIGHT ANKLE AND SERENITY 05/15/2018 BIENVENIDO DPAde, STEFFI Huerta Ot N40.0 BENIGN PROSTATIC HYPERPLASIA WITHOUT LOW 05/15/2018 FARIA DPM, STEFFI Huerta Ot Z68.30 BODY MASS INDEX (BMI) 30.0-30.9, ADULT 05/15/2018 BIENVENIDO DPAde, STEFFI Huerta Ot Z79.01 HALFWAY (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 OF ANTICOAGULANT 05/15/2018 BIENVENIDO DPAde, STEFFI Huerta Ot Z79.899 OTHER EMPLOYMENT SUPERVISOR (CURRENT) DRUG THERAPY 06/19/2018 BIENVENIDO DPAde, STEFFI P Ot G47.33 OBSTRUCTIVE SLEEP APNEA (ADULT) (PEDIATR 06/19/2018 FARIA DPM, STEFFI P Ot I10 ESSENTIAL (PRIMARY) HYPERTENSION 06/19/2018 FARIA DPM, STEFFI P Ot I48.91 UNSPECIFIED ATRIAL FIBRILLATION 06/19/2018 FARIA DPM, STEFFI P Ot M21.622 BUNIONETTE OF LEFT FOOT 06/19/2018 FARIA DPM, STEFFI P Ot M24.575 CONTRACTURE, LEFT FOOT 06/19/2018 FARIA DPM, STEFFI P Ot Z79.899 OTHER EMPLOYMENT SUPERVISOR (CURRENT) DRUG THERAPY 06/21/2018 FARIA DPM, STEFFI P Ot G47.33 OBSTRUCTIVE SLEEP APNEA (ADULT) (PEDIATR 06/21/2018 FARIA DPM, STEFFI P Ot I10 ESSENTIAL (PRIMARY) HYPERTENSION 06/21/2018 FARIA DPM, STEFFI P Ot I48.91 UNSPECIFIED ATRIAL FIBRILLATION 06/21/2018 FARIA DPM, STEFFI P Ot M21.622 BUNIONETTE OF LEFT FOOT 06/21/2018 FARIA DPM, STEFFI P Ot M24.575 CONTRACTURE, LEFT FOOT 06/21/2018 FARIA DPM, STEFFI P Ot Z79.899 OTHER EMPLOYMENT SUPERVISOR (CURRENT) DRUG THERAPY Procedures Code Description Performed By Performed On 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 Visit Date/Time Discharge Status Pt. Type Provider Facility Loc./Unit Complaint [id number] 06/15/2018 06:08:00 06/15/2018 10:35:00 DIS Outpatient FARIASTEFFI VENEGAS DPM [facility] TAILOR BUNION LEFT FOOT [id number] 06/11/2018 06:09:00 06/11/2018 13:00:00 DIS Outpatient FARIASTEFFI VENEGAS DPM [facility] PREOP TAILOR BUNION LEFT FOOT [id number] 05/11/2018 06:23:00 05/11/2018 11:00:00 DIS Outpatient FARIASTEFFI VENEGAS DPM [facility] TAILOR BUNION [id number] 05/07/2018 13:03:00 05/07/2018 13:30:00 DIS Outpatient FARIASTEFFI VENEGAS DPM [facility] PREOP TAILOR BUNION [id number] 06/30/2017 13:38:00 06/30/2017 23:59:59 CLS Outpatient SCOTT BRADSHAW [facility] CARD I48.0 AF [id number] 05/12/2016 11:39:00 05/12/2016 23:59:59 CLS Outpatient MURTAZA BOOKER MD [facility] CARD CHF, HTN [id number] 04/16/2015 08:47:00 04/16/2015 23:59:59 CLS Outpatient MURTAZA BOOKER MD [facility] CARD AF,CHF,HTN,HLP [id number] 09/23/2014 12:34:00 09/23/2014 23:59:59 CLS Outpatient MURTAZA BOOKER MD [facility] CARD CHF, DYASTOLIC DYSFUNCTION [id number] 09/12/2014 13:23:00 09/12/2014 23:59:59 CLS Outpatient SCOTT BRADSHAW [facility] CARD AFIB CHF HTN HLE [id number] 05/14/2014 05:54:00 05/17/2014 10:32:00 DIS Inpatient NIURKA ZALDIVAR MD [facility] SURGICAL RIGHT KNEE OSTEOARTHRITIS [id number] 05/07/2014 11:56:00 05/07/2014 23:59:59 CLS Outpatient NIURKA ZALDIVAR MD [facility] PREOP RIGHT KNEE OSTEOARTHRITIS [id number] 04/03/2014 21:06:00 04/04/2014 06:15:00 DIS Outpatient FRANKLIN KUHN DO [facility] SLEEP SNORING,AVELINO, [id number] 03/12/2014 09:36:00 03/12/2014 23:59:59 CLS Outpatient MURTAZA BOOKER MD [facility] CARD AFIB [id number] 07/06/2018 19:23:00 ACT Emergency JEFF NORRIS [facility] ER HIGH TEMP 105.4,RECENT FOOT SURGERY [id number] 09/23/2014 12:34:00 Document Registration [id number] 09/23/2014 12:34:00 Document Registration [id number] 09/23/2014 12:34:00 Document Registration [id number] 09/23/2014 12:34:00 Document Registration [id number] 09/23/2014 12:34:00 Document Registration [id number] 09/11/2012 14:00:00 Document Registration [id number] 01/28/2012 20:32:00 Document Registration [id number] 11/22/2011 12:51:00 Document Registration [id number] 01/10/2011 11:18:00 Document Registration [id number] 10/27/2010 00:26:00 Document Registration
[2018-07-06] MEDS ORDERED: ACETAMINOPHEN 500 MG TAB (TYLENOL) PO ONE (19:30)
[2018-07-06] MEDS ORDERED: IBUPROFEN 800 MG (MOTRIN) TAB PO ONE (19:30)
[2018-07-06 19:52] LABS: BASOPHILS % (AUTO) 0 % (0-10); EOSINOPHILS % (AUTO) 0 % (0-10); HEMATOCRIT 44 % (40-54); HEMOGLOBIN 14.9 G/DL (13.3-17.7); LYMPHOCYTES # (AUTO) 0.5 X 10^3 (1.0-4.0); LYMPHOCYTES % (AUTO) 4 % (12-44); MEAN CORPUSCULAR HEMOGLOBIN 34 PG (25-34); MEAN CORPUSCULAR HGB CONC 34 G/DL (32-36); MEAN CORPUSCULAR VOLUME 99 FL (80-99); MEAN PLATELET VOLUME 9.4 FL (7.4-10.4); MONOCYTES # (AUTO) 0.5 X 10^3 (0.0-1.0); MONOCYTES % (AUTO) 4 % (0-12); NEUTROPHILS # (AUTO) 10.9 X 10^3 (1.8-7.8); NEUTROPHILS % (AUTO) 91 % (42-75); PLATELET COUNT 212 10^3/uL (130-400); RED CELL DISTRIBUTION WIDTH 12.4 % (10.0-14.5); WHITE BLOOD COUNT 11.9 10^3/uL (4.3-11.0)
[2018-07-06 20:09] LABS: INR 1.2 (0.8-1.4); PROTHROMBIN TIME PATIENT 14.7 SEC (12.2-14.7)
[2018-07-06 20:22] LABS: ALANINE AMINOTRANSFERASE 18 U/L (0-55); ALBUMIN 4.1 GM/DL (3.2-4.5); ALKALINE PHOSPHATASE 70 U/L (40-136); BUN/CREATININE RATIO 20; CALCIUM 9.2 MG/DL (8.5-10.1); CARBON DIOXIDE 22 MMOL/L (21-32); CHLORIDE 105 MMOL/L (98-107); CREATININE SERUM 0.87 MG/DL (0.60-1.30); GFR ESTIMATED > 60; GLUCOSE 119 MG/DL (70-105); POTASSIUM 3.4 MMOL/L (3.6-5.0); SODIUM 140 MMOL/L (135-145); TOTAL PROTEIN 6.9 GM/DL (6.4-8.2)
--- NOTE | 2018-07-06 20:23 | Diagnostic Imaging Report ---
INDICATION: Fever EXAMINATION: Chest 07/06/2018 FINDINGS: Frontal chest The heart is prominent. Pulmonary vasculature is slightly congested. Mild linear atelectasis versus early infiltrate right infrahilar region is seen. The remaining lungs clear. There are no effusions. No pneumothorax. Tiny nodular density peripherally at the left lower lung is noted, possibly small nodule. This is stable since a chest x-ray from 05/07/2014 suggesting a benign process. IMPRESSION: 1. Right infrahilar atelectasis versus early infiltrate; correlate with symptoms. 2. Cardiomegaly. Other findings as above. Dictated by: Dictated on workstation # [id number]
[2018-07-06 20:31] LABS: BAND NEUTROPHILS 14 %; EOSINOPHILS % (MANUAL) 1 %; LYMPHOCYTES % (MANUAL) 5 %; MONOCYTES % (MANUAL) 1 %; NEUTROPHILS % (MANUAL) 78 %; RBC MORPH NORMAL
[2018-07-06] MEDS ORDERED: LEVO750T9 PO (21:09)
--- NOTE | 2018-07-06 21:09 | ED Fever ---
History of Present Illness General Chief Complaint: Fever-Adult/Adol Stated Complaint: HIGH TEMP 105.4,RECENT FOOT SURGERY Nursing Triage Note: fever, malaise today. Sepsis Screen: Possible Sepsis Risk Source: patient, family Exam Limitations: no limitations History of Present Illness Date Seen by Provider: Jul 06, 2018 Time Seen by Provider: 19:29 Initial Comments 77-year-old male who presents to the emergency room with complaints of fever malaise that started today around 5 PM. His reports that they did take his temperature orally at home and then you read 105.4. He attempted to take to Tylenol 500 mg by ended up vomiting some of the digestive pill left. He reports mild shortness of breath. He recently had bilateral bunionectomies that were 3 weeks apart his most recent being his left knee still has sutures in the wound. 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 Associated Symptoms: nausea/vomiting, shortness of breath Allergies and Home Medications Allergies Coded Allergies: No Known Drug Allergies (Verified , 08/06/08) Home Medications Amlodipine Besylate 5 Mg Tablet, 5 MG PO DAILY, (Reported) Apixaban 5 Mg Tablet, 5 MG PO BID, (Reported) Carvedilol 6.25 Mg Tablet, 6.25 MG PO BID, (Reported) Fish Oil/Dha/Epa 1 Each Capsule, 1,200 MG PO DAILY, (Reported) Furosemide 40 Mg Tablet, 40 MG PO DAILY, (Reported) Gluc 2Kcl/Chondr/Jeffery Hy/Hy AC 1 Each Capsule, 1 EACH PO DAILY PRN, (Reported) Irbesartan 300 Mg Tablet, 300 MG PO DAILY, (Reported) Levofloxacin 750 Mg Tablet, 750 MG PO DAILY Prescribed by: JEFF NORRIS on 07/06/182108 Potassium Chloride 10 Meq Tablet.er, 10 MEQ PO DAILY, (Reported) Patient Home Medication List Home Medication List Reviewed: Yes Review of Systems Review of Systems Constitutional: see HPI, chills, fever, malaise Respiratory: see HPI, short of breath All Other Systems Reviewed Negative Unless Noted: Yes Past Czzfqej-Mnsapk-Kgnzug Hx Past Med/Social Hx: Reviewed Nursing Past Med/Soc Hx Patient Social History Alcohol Use: Denies Use Recreational Drug Use: No Smoking Status: Never a Smoker 2nd Hand Smoke Exposure: No Recent Foreign Travel: No Contact w/Someone Who Travel: No Recent Infectious Disease Expo: No Recent Hopitalizations: No Immunizations Up To Date Tetanus Booster (TDap): Less than 5yrs Date of Pneumonia Vaccine: May 07, 2017 Date of Influenza Vaccine: Mar 05, 2018 Seasonal Allergies Seasonal Allergies: No Past Medical History Surgeries: Yes (KNEE SCOPES, HEMORRHOIDECTOMY, R TKR, b BUNIONECTOMY) Joint Replacement Respiratory: Yes Sleep Apnea Currently Using CPAP: Yes Cardiac: Yes Atrial Fibrillation, Hypertension Neurological: No Reproductive Disorders: No Genitourinary: No Gastrointestinal: No Musculoskeletal: Yes Arthritis Endocrine: No HEENT: No Hearing Impairment: Denies Cancer: No Psychosocial: No Integumentary: No Blood Disorders: No Adverse Reaction/Blood Tranf: No (N/A) Family Medical History Reviewed Nursing Family Hx Cardiovascular disease 19 FATHER Dementia G8 SISTER Hypertension 19 FATHER Myocardial infarction 19 FATHER Respiratory disorder 19 MOTHER Tuberculosis 19 MOTHER No Family History of: AIDS Alcoholism Alzheimer's disease Arthritis Asthma Cancer of mouth Cataracts Colon cancer Completed stroke Diabetes mellitus Drug abuse Glaucoma Kidney disease Parkinson's disease Prostate cancer Psychosocial problem Seizure disorder Physical Exam Vital Signs - First Documented 07/06/18 19:30 Temp 100.7 Pulse 93 Resp 18 B/P (MAP) 142/67 (92) Pulse Ox 92 O2 Delivery Room Air Capillary Refill : Less Than 3 Seconds Height: 6'2.00" Weight: 239lbs. 0.0oz. 108.201174ly; 30.7 BMI Method:Stated General Appearance: WD/WN, no apparent distress Eyes: Bilateral Eye Normal Inspection, Bilateral Eye PERRL, Bilateral Eye EOMI HEENT: PERRL/EOMI, normal ENT inspection, TMs normal, pharynx normal Respiratory: chest non-tender, lungs clear, normal breath sounds, no respiratory distress, no accessory muscle use, respiratory distress Cardiovascular: normal peripheral pulses, regular rate, rhythm, no edema, no gallop, no JVD, no murmur Gastrointestinal: normal bowel sounds, non tender, soft, no organomegaly, no pulsatile mass Extremities: normal range of motion, non-tender, normal inspection, no pedal edema, no calf tenderness, normal capillary refill, pelvis stable, other (no redness or swelling noted to bilateral operative sites of bunionectomies.) Neurologic/Psychiatric: alert, normal mood/affect, oriented x 3 Skin: normal color, warm/dry Focused Exam Lactate Level 07/06/18 19:39: Lactic Acid Level 1.17 Lactic Acid Level Laboratory Tests Test 07/06/18 19:39 Lactic Acid Level 1.17 MMOL/L (0.50-2.00) Progress/Results/Core Measures Suspected Sepsis Recent Fever Within 48 Hours: Yes Infection Criteria Present: Suspected New Infection New/Unexplained Altered Menta: No Sepsis Screen: Possible Sepsis Risk SIRS Temperature:100.7 Pulse: 93 Respiratory Rate: 18 Laboratory Tests 07/06/18 19:39: White Blood Count 11.9H Blood Pressure 142 /67 Mean: 92 07/06/18 19:39: Lactic Acid Level 1.17 Laboratory Tests 07/06/18 19:39: Creatinine 0.87, INR Comment 1.2, Platelet Count 212, Total Bilirubin 1.0 Results/Orders Lab Results Laboratory Tests Test 07/06/18 19:39 Range/Units White Blood Count 11.9 H 4.3-11.0 10^3/uL Red Blood Count 4.42 4.35-5.85 10^6/uL Hemoglobin 14.9 13.3-17.7 G/DL Hematocrit 44 40-54 % Mean Corpuscular Volume 99 80-99 FL Mean Corpuscular Hemoglobin 34 25-34 PG Mean Corpuscular Hemoglobin Concent 34 32-36 G/DL Red Cell Distribution Width 12.4 10.0-14.5 % Platelet Count 212 130-400 10^3/uL Mean Platelet Volume 9.4 7.4-10.4 FL Neutrophils (%) (Auto) 91 H 42-75 % Lymphocytes (%) (Auto) 4 L 12-44 % Monocytes (%) (Auto) 4 0-12 % Eosinophils (%) (Auto) 0 0-10 % Basophils (%) (Auto) 0 0-10 % Neutrophils # (Auto) 10.9 H 1.8-7.8 X 10^3 Lymphocytes # (Auto) 0.5 L 1.0-4.0 X 10^3 Monocytes # (Auto) 0.5 0.0-1.0 X 10^3 Eosinophils # (Auto) 0.0 0.0-0.3 10^3/uL Basophils # (Auto) 0.0 0.0-0.1 10^3/uL Neutrophils % (Manual) 78 % Lymphocytes % (Manual) 5 % Monocytes % (Manual) 1 % Eosinophils % (Manual) 1 % Band Neutrophils 14 % Blood Morphology Comment NORMAL Prothrombin Time 14.7 12.2-14.7 SEC INR Comment 1.2 0.8-1.4 Activated Partial Thromboplast Time 30 24-35 SEC Sodium Level 140 135-145 MMOL/L Potassium Level 3.4 L 3.6-5.0 MMOL/L Chloride Level 105 98-107 MMOL/L Carbon Dioxide Level 22 21-32 MMOL/L Anion Gap 13 5-14 MMOL/L Blood Urea Nitrogen 17 7-18 MG/DL Creatinine 0.87 0.60-1.30 MG/DL Estimat Glomerular Filtration Rate > 60 BUN/Creatinine Ratio 20 Glucose Level 119 H 70-105 MG/DL Lactic Acid Level 1.17 0.50-2.00 MMOL/L Calcium Level 9.2 8.5-10.1 MG/DL Corrected Calcium 9.1 8.5-10.1 MG/DL Total Bilirubin 1.0 0.1-1.0 MG/DL Aspartate Amino Transf (AST/SGOT) 19 5-34 U/L Alanine Aminotransferase (ALT/SGPT) 18 0-55 U/L Alkaline Phosphatase 70 40-136 U/L C-Reactive Protein High Sensitivity 0.36 0.00-0.50 MG/DL Total Protein 6.9 6.4-8.2 GM/DL Albumin 4.1 3.2-4.5 GM/DL Monoscreen NEGATIVE NEGATIVE Micro Results Microbiology 07/06/18 Blood Culture - Preliminary, Resulted Staph, Coag Neg (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 SYSTEMS SOFTWARE 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) See Comments 07/06/18 Blood Culture - Preliminary, Resulted Streptococcus dysgalactiae See Report 07/06/18 Influenza Types A,B Antigen (BRISSA) - Final, Complete 07/06/18 Gram Stain - Final, Resulted 07/06/18 Wound Culture - Preliminary, Resulted Usual Mixed Skin Jenniffer Streptococcus dysgalactiae My Orders Orders - JEFF NORRIS Cbc With Automated Diff (07/06/18 19:25) Comprehensive Metabolic Panel (07/06/18 19:25) Blood Culture (07/06/18 19:25) Protime With Inr (07/06/18 19:25) Partial Thromboplastin Time (07/06/18 19:25) Chest 1 View, Ap/Pa Only (07/06/18 19:25) Saline Lock/Iv-Start (07/06/18 19:25) Saline Lock/Iv-Start (07/06/18 19:25) Vital Signs Adult Sepsis Patie Q15M (07/06/18 19:25) O2 (07/06/18 19:25) Remove Rings In Anticipation O (07/06/18 19:25) Lactic Acid Analyzer (07/06/18 19:25) Acetaminophen Tablet (Tylenol Tablet) (07/06/18 19:30) Ibuprofen Tablet (Motrin Tablet) (07/06/18 19:30) Influenza A And B Antigens (07/06/18 19:42) Manual Differential (07/06/18 19:39) Hs C Reactive Protein (07/06/18 20:14) Monotest (07/06/18 20:14) Levofloxacin Tablet (Levaquin Tablet) (07/06/18 21:30) Levofloxacin Tablet (Levaquin Tablet) (07/06/18 21:30) Wound Culture (07/06/18 19:40) Medications Given in ED Vital Signs/I&O 07/06/18 07/06/18 19:30 21:36 Temp 100.7 97.6 Pulse 93 101 Resp 18 18 B/P (MAP) 142/67 (92) 120/71 (87) Pulse Ox 92 91 O2 Delivery Room Air Room Air Capillary Refill : Less Than 3 Seconds Blood Pressure Mean: 92 Progress Note : Time: 21:06 Progress Note I have seen and evaluated the patient. I will be treating his pneumonia that was discovered on x-ray. I have placed him on Levaquin for outpatient treatment. I did discuss findings with Dr. Redding hospitalist on-call and she agrees with plans for outpatient treatment. Diagnostic Imaging Diagonstic Imaging: Xray Plain Films/CT/US/NM/MRI: chest Comments NAME: [facility] REC#: [id number] PT STATUS: DEP ER : 1940 PHYSICIAN: JEFF NORRIS ADMIT DATE: 07/06/18/ER Signed Date of Exam: 07/06/18 CHEST 1 VIEW, AP/PA ONLY INDICATION: Fever EXAMINATION: Chest 07/06/2018 FINDINGS: Frontal chest The heart is prominent. Pulmonary vasculature is slightly congested. Mild linear atelectasis versus early infiltrate right infrahilar region is seen. The remaining lungs clear. There are no effusions. No pneumothorax. Tiny nodular density peripherally at the left lower lung is noted, possibly small nodule. This is stable since a chest x-ray from 05/07/2014 suggesting a benign process. IMPRESSION: 1. Right infrahilar atelectasis versus early infiltrate; correlate with symptoms. 2. Cardiomegaly. Other findings as above. Dictated by: Dictated on workstation # [id number] Dict: 07/06/182012 Trans: 07/06/182225 Interpreted by: DONAVON MAYORGA MD Electronically signed by: DONAVON MAYORGA MD 07/06/182225 Reviewed: Reviewed by Me Departure Impression Primary Impression: Pneumonia Qualified Codes: J18.1 - Lobar pneumonia, unspecified organism Disposition: HOME, SELF-CARE Condition: Stable/Unchanged Departure-Patient Inst. Decision time for Depature: 21:06 Referrals: ELIAZAR BEATTY MD (PCP/Family) Primary Care Physician Patient Instructions: Community-Acquired Pneumonia in Adults Add. Discharge Instructions: Take medications as directed. Tylenol and ibuprofen as directed by the bottle for pain and fever relief. Follow-up with your primary care provider within 1 week for recheck. Call first thing Monday morning for an appointment time. Return back to the emergency room for worsening symptoms or concerns as needed. All discharge instructions reviewed with patient and/or family. Voiced understanding. Scripts Levofloxacin (Levaquin) 750 Mg Tablet 750 MG PO DAILY for 6 Days, #6 TAB Prov: JEFF NORRIS 07/06/18 JEFF NORRIS Jul 06, 2018 21:09
[2018-07-06] MEDS ORDERED: LEVOFLOXACIN 750 MG TAB (LEVAQUIN) PO ONE (21:30)
[2018-07-06] MEDS ORDERED: LEVOFLOXACIN 500 MG TAB (LEVAQUIN) ONE (21:30)
[2018-07-06 21:36] VITALS: BP 120/71
--- NOTE | 2018-07-07 14:55 | NUR ---
This nurse called to check on pt. Pt reports getting the AB filled, feeling better, and temperature has returned to normal. Pt adivsed, should symptoms return/worsen, to return to the ED.
== END 2018-07-06 21:36 | disposition home or self-care (01) ==
LOC: EDUNIT# 19:21 → ER 19:23
DX: J18.9 Pneumonia, unspecified organism (principal); G47.30 Sleep apnea, unspecified; I48.91 Unspecified atrial fibrillation; I10 Essential (primary) hypertension; Z82.49 Family history of ischemic heart disease and other diseases of the circulatory system; Z79.01 Long term (current) use of anticoagulants; Z98.890 Other specified postprocedural states; Z96.651 Presence of right artificial knee joint
CPT/HCPCS: 36415; 71045; 80053; 83605; 85007; 85025; 85027; 85610; 85730; 86141; 86308; 87040; 87070; 87077; 87205; 87804

== ENCOUNTER → 2018-11-26 | Outpatient (CLI) | payer MEDICARE ==
[~2018-11-26] VITALS: Ht 185.4 cm; Wt 108.9 kg
[~2018-11-26] MED LIST changes: +CATHETER FLUSH 10 ML SYR IV PRN; +LEVO750T9 PO
[2018-11-26 09:54] VITALS: BP 142/83
[2018-11-26 10:01] VITALS: BP 157/78
[2018-11-26 10:02] VITALS: BP 173/80
[2018-11-26 10:03] VITALS: BP 135/81
--- NOTE | 2018-11-27 08:01 | STRESS TEST ---
DATE OF SERVICE: 11/26/2018 EXERCISE MYOVIEW STRESS TEST REPORT REFERRING PHYSICIAN: Dr. Meraz. Baseline heart rate is 70. Baseline blood pressure is 142/83. Baseline EKG is atrial fibrillation with no ischemic changes. In summary, the patient was injected with 10.48 mCi of technetium-99 Myoview and the resting images were obtained. Then, the patient started exercising with a baseline heart rate, blood pressure and EKG mentioned above. The patient was able to exercise for 3 minutes 30 seconds on standard Beny protocol. With peak exercise level, heart rate was 154, blood pressure 173/80. The patient was injected with 31.1 mCi of technetium-99 Myoview. Throughout the test, there were no EKG changes. The resting and stress images were reviewed and compared in the short axis, horizontal long axis, and vertical long axis views. Review of the images showed diaphragmatic attenuation with good radiotracer uptake. There is no significant ischemia or infarction. On the SPECT images, the left ventricle appeared to be in the slightly prominent with mild diffuse left ventricular hypokinesia, calculated ejection fraction 44%, gated images are unreliable due to underlying atrial fibrillation. CONCLUSION: 1. The patient was able to tolerate 3 minutes 30 seconds on standard Beny protocol, total of 5.2 METS, achieving over 100% of maximum expected heart rate. 2. Appropriate blood pressure response to exercise returned to baseline during recovery. 3. Diaphragmatic attenuation with typical male pattern with no significant ischemia or infarction on SPECT images. 4. Prominent left ventricle with calculated ejection fraction 44%, gated images are unreliable due to underlying atrial fibrillation. Job ID: [id number] DocumentID: [id number] Dictated Date: 11/27/2018 07:32:37 Air Bag Stripper Date: 11/27/2018 08:00:22 Dictated By: MURTAZA BOOKER MD
== END ==
LOC: CARD 07:50
PROVIDERS: ATTEND Physician Assistant
DX: I11.0 Hypertensive heart disease with heart failure (principal); I50.9 Heart failure, unspecified; E78.2 Mixed hyperlipidemia; I49.3 Ventricular premature depolarization
CPT/HCPCS: 78452; 93017

== ENCOUNTER → 2020-10-06 | Outpatient (CLI) | payer MEDICARE ==
[~2020-10-06] MED LIST changes: +AMLO-250 PO; -AMLO5TAB9 PO; -CATHETER FLUSH 10 ML SYR IV PRN; +IRBE300T17 PO; -IRBE300T18 PO
== END ==
LOC: CARD 10:47
PROVIDERS: ATTEND Physician Assistant
DX: I11.9 Hypertensive heart disease without heart failure (principal); I08.3 Combined rheumatic disorders of mitral, aortic and tricuspid valves; I25.10 Atherosclerotic heart disease of native coronary artery without angina pectoris
CPT/HCPCS: 93306

== ENCOUNTER 2021-07-17 06:16 | Emergency (ER) | payer MEDICARE ==
[~2021-07-17] VITALS: Ht 188 cm; Wt 103.0 kg
[2021-07-17 06:35] VITALS: BP 157/95
--- NOTE | 2021-07-17 06:49 | ED Cough/URI ---
General Chief Complaint: COVID19 Suspect/Confirmed Stated Complaint: SORE THROAT,FEVER Source: patient Exam Limitations: no limitations History of Present Illness Date Seen by Provider: Jul 17, 2021 Time Seen by Provider: 06:34 Initial Comments Patient to the ER with a couple days progressively worsening sore throat, nasal congestion, worse in the morning when he gets up. He has had poor sleep no fever body aches chills. He has been given 3 different vaccinations for COVID as well as a flu vaccination this season. His also has a cold. He wants to be tested for strep throat and is requested a shot of penicillin. No nausea vomiting diarrhea. No cough. He is using Sudafed as a decongestant. Allergies and Home Medications Allergies Coded Allergies: No Known Drug Allergies (Verified , 08/06/08) Patient Home Medication List Home Medication List Reviewed: Yes Amlodipine Besylate (Amlodipine Besylate) 5 Mg Tablet, 5 MG PO DAILY, (Reported) Entered as Reported by: KENNETH CHAVEZ on 05/07/18 135 Apixaban (Eliquis) 5 Mg Tablet, 5 MG PO BID, (Reported) Entered as Reported by: KENNETH CHAVEZ on 05/07/18 135 Carvedilol (Carvedilol) 6.25 Mg Tablet, 6.25 MG PO BID, (Reported) Entered as Reported by: KENNETH CHAVEZ on 05/07/18 135 Fish Oil/Dha/Epa (Fish Oil 1,200 mg Fish Oil) 1 Each Capsule, 1,200 MG PO DAILY, (Reported) Entered as Reported by: KENNETH CHAVEZ on 05/07/18 135 Furosemide (Furosemide) 40 Mg Tablet, 40 MG PO DAILY, (Reported) Entered as Reported by: KENNETH CHAVEZ on 05/07/18 135 Gluc 2Kcl/Chondr/Jeffery Hy/Hy AC (Glucosamine & Chondroitin Cap) 1 Each Capsule, 1 EACH PO DAILY PRN, (Reported) Entered as Reported by: KENNETH CHAVEZ on 05/07/18 135 Irbesartan (Irbesartan) 300 Mg Tablet, 300 MG PO DAILY, (Reported) Entered as Reported by: KENNETH CHAVEZ on 05/07/18 135 Levofloxacin (Levaquin) 750 Mg Tablet, 750 MG PO DAILY Prescribed by: JEFF NORRIS on 07/06/182108 Potassium Chloride (Potassium Chloride) 10 Meq Tablet.er, 10 MEQ PO DAILY, (Reported) Entered as Reported by: KENNETH CHAVEZ on 05/07/18 9052 Review of Systems Review of Systems Constitutional: No chills, No diaphoresis, No fever EENTM: nose congestion, throat pain; No ear discharge, No ear pain, No dental problems Respiratory: No cough Cardiovascular: No chest pain, No palpitations Gastrointestinal: No abdominal pain, No nausea, No vomiting Genitourinary: No discharge, No dysuria Musculoskeletal: No back pain, No joint pain Past Lswxfkp-Hquhzr-Owbhsm Hx Patient Social History Tobacco Use?: No Use of E-Cig and/or Vaping dev: No Substance use?: No Immunizations Up To Date Tetanus Booster (TDap): Less than 5yrs Seasonal Allergies Seasonal Allergies: No Past Medical History Surgeries: Yes (KNEE SCOPES, HEMORRHOIDECTOMY, R TKR, b BUNIONECTOMY) Joint Replacement Respiratory: Yes Sleep Apnea Currently Using CPAP: Yes Cardiac: Yes Atrial Fibrillation, Hypertension Neurological: No Reproductive Disorders: No Genitourinary: No Gastrointestinal: No Musculoskeletal: Yes Arthritis Endocrine: No HEENT: No Hearing Impairment: Denies Cancer: No Psychosocial: No Integumentary: No Blood Disorders: No Adverse Reaction/Blood Tranf: No (N/A) Family Medical History Cardiovascular disease 19 FATHER Dementia G8 SISTER Hypertension 19 FATHER Myocardial infarction 19 FATHER Respiratory disorder 19 MOTHER Tuberculosis 19 MOTHER No Family History of: AIDS Alcoholism Alzheimer's disease Arthritis Asthma Cancer of mouth Cataracts Colon cancer Completed stroke Diabetes mellitus Drug abuse Glaucoma Kidney disease Parkinson's disease Prostate cancer Psychosocial problem Seizure disorder Physical Exam Vital Signs - First Documented Capillary Refill : Height: 6'1.00" Weight: 240lbs. 0.0oz. 108.768608vq; 31.7 BMI Method:Stated General Appearance: WD/WN, no apparent distress Eyes: Bilateral Eye Normal Inspection, Bilateral Eye PERRL, Bilateral Eye EOMI HEENT: PERRL/EOMI, TMs normal, pharyngeal erythema (With tonsillar swelling without exudate. Nasal congestion audible) Neck: non-tender, full range of motion, supple Respiratory: lungs clear, normal breath sounds, no respiratory distress, no accessory muscle use Cardiovascular: normal peripheral pulses, regular rate, rhythm Progress/Results/Core Measures Suspected Sepsis SIRS Temperature: Pulse: Respiratory Rate: Blood Pressure / Mean: Results/Orders Lab Results Laboratory Tests Test 07/17/21 06:40 Range/Units Influenza Type A (RT-PCR) Not Detected Not Detecte Influenza Type B (RT-PCR) Not Detected Not Detecte SARS-CoV-2 RNA (RT-PCR) Not Detected Not Detecte Group A Streptococcus Screen NEGATIVE NEGATIVE My Orders Orders - GEETA CROWE Covid 19 Inhouse Test (07/17/21 06:45) Rapid Strep A Screen (07/17/21 06:45) Influenza A And B By Pcr (07/17/21 06:45) Vital Signs/I&O 07/17/21 07/17/21 06:35 06:35 Temp 36.2 Pulse 71 Resp 18 B/P (MAP) 157/95 (115) Pulse Ox 93 O2 Delivery Room Air Room Air Capillary Refill : Progress Note : Time: 06:48 Progress Note Viral versus bacterial nasopharyngitis. Covid swab, influenza antigens and rapid strep. Departure Impression Primary Impression: Acute nasopharyngitis (common cold) Disposition: 01 HOME, SELF-CARE Condition: Stable Departure-Patient Inst. Decision time for Depature: 07:39 Referrals: ELIAZAR BEATTY MD (PCP/Family) Primary Care Physician Patient Instructions: Sore Throat, Adult (DC) Add. Discharge Instructions: Salt water gargles as often as necessary to reduce the swelling in your throat so you can sleep better and drink more fluids. Stay well-hydrated. Humidifiers and vapor rubs such as Vicks or Mentholatum are helpful. Throat lozenges with menthol or eucalyptus can be helpful. Chloraseptic sprays may help if you are having a lot of pain in your throat. We will culture the strep swab and should have a result in 2 to 3 days. If it is positive we will call you with the result. If you not seeing improvement in 7 to 10 days then follow-up with your primary care doctor for reevaluation. All discharge instructions reviewed with patient and/or family. Voiced understanding. GEETA CROWE Jul 17, 2021 06:48
== END 2021-07-17 07:46 | disposition home or self-care (01) ==
LOC: EDUNIT# 06:16 → ER 06:18
DX: J00 Acute nasopharyngitis [common cold] (principal); I10 Essential (primary) hypertension; I48.91 Unspecified atrial fibrillation; G47.30 Sleep apnea, unspecified; Z99.89 Dependence on other enabling machines and devices; Z79.01 Long term (current) use of anticoagulants; Z79.899 Other long term (current) drug therapy; Z20.822 Contact with and (suspected) exposure to COVID-19
CPT/HCPCS: 87430; 87636; 99283

== ENCOUNTER 2021-09-20 10:01 | Outpatient (CLI) | payer MEDICARE ==
[~2021-09-20] VITALS: Ht 188 cm; Wt 103.6 kg
[2021-09-20] MEDS ORDERED: DOXY100T2 PO (11:28)
[2021-09-20] MEDS ORDERED: HYDR-3817 PO (11:28)
== END 2021-09-20 11:46 | disposition home or self-care (01) ==
LOC: PREOP 10:01
PROVIDERS: ATTEND Orthopaedic Surgery
DX: Z01.818 Encounter for other preprocedural examination (principal)

== ENCOUNTER 2021-09-22 06:48 | Day surgery (SDC) | payer MEDICARE ==
[~2021-09-22] VITALS: Ht 188 cm; Wt 103.6 kg
[2021-09-22] VITALS (11 sets, daily range): BP systolic 135–162; BP diastolic 76–99
[~2021-09-22 06:48] MED LIST changes: +DOXY100T2 PO; +HYDR-3817 PO
[2021-09-22] MEDS ORDERED: morphine PF (DURAMORPH) 10 MG/10 ML AMP ONE (07:23)
[2021-09-22] MEDS ORDERED: BUPIVACAINE 0.25% 10 ML (SENSORCAINE) VIAL ONE (07:23)
[2021-09-22] MEDS ORDERED: ceFAZolin 2 GM IV Premixed 50 ML IV ONE (07:30)
[2021-09-22] MEDS ORDERED: LACTATED RINGERS 1,000 ML IV PRN (07:30)
[2021-09-22] MEDS ORDERED: HYDROcodone/APAP 7.5 MG/325 MG (LORTAB, LORCET PLUS) TABLET PO PRN (07:30)
--- NOTE | 2021-09-22 07:36 | Progress Note-Pre Operative ---
Pre-Operative Progress Note H&P Reviewed The H&P was reviewed, patient examined and no changes noted. 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
--- NOTE | 2021-09-22 07:37 | Progress Note-Post Operative ---
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
[2021-09-22] MEDS ORDERED: ONDANSETRON 4 MG/2 ML (SDV) Z0FRAN ONE (07:52)
[2021-09-22] MEDS ORDERED: proPOfol 200 MG/20 ML (DIPRIVAN) VIAL IV ONE (07:52)
[2021-09-22] MEDS ORDERED: LIDOCAINE PF 2% 5 ML (XYLOCAINE) VIAL ONE (07:52)
[2021-09-22] MEDS ORDERED: fentaNYL INJ 100 MCG/2 ML AMP ONE (07:52)
[2021-09-22] MEDS ORDERED: ESMOLOL 100 MG/10 ML (BREVIBLOC) VIAL ONE (07:58)
[2021-09-22] MEDS ORDERED: SEVOFLURANE (ULTANE) 15 ML INHAL SOLN ONE (08:47)
[2021-09-22] MEDS ORDERED: morphine INJ 10 MG/ML 1ML (SYR OR VIAL) IVP ONE (09:15)
[2021-09-22] MEDS ORDERED: ONDANSETRON 4 MG/2 ML (SDV) Z0FRAN IVP PRN (09:15)
--- NOTE | 2021-09-22 13:43 | OPERATIVE REPORT ---
DATE OF SERVICE: 09/22/2021 PREOPERATIVE DIAGNOSES: 1. Left knee medial meniscus tear. 2. Left knee chondromalacia of the patella. 3. Left knee chondromalacia of the medial femoral condyle. POSTOPERATIVE DIAGNOSES: 1. Left knee medial meniscus tear. 2. Left knee anterior tibial osteophyte. 3. Left knee chondromalacia of the patella. 4. Left knee chondromalacia of the trochlea. PROCEDURES PERFORMED: 1. Left knee arthroscopic partial medial meniscectomy. 2. Left knee arthroscopic anterior tibial osteophyte excision. 3. Left knee arthroscopic chondroplasty of the patella. 4. Left knee arthroscopic chondroplasty of the trochlea. SURGEON: Eligio Zaldivar MD. PILE DRIVING TECHNICIAN: Adam Walker, who assisted throughout the procedure and closed the incisions. ANESTHESIA: General endotracheal by Dr. Hu. TOURNIQUET TIME: Not applicable. ESTIMATED BLOOD LOSS: Minimal. DRAINS: None. COMPLICATIONS: None. POSTOPERATIVE PLAN: Routine arthroscopy protocol. The patient was transferred to the recovery room awake and in stable condition. STATEMENT OF MEDICAL NECESSITY: The patient is an 81-year-old active gentleman with complaints of left knee pain, catching, locking, and swelling. He had severe osteoarthritis with joint space narrowing. The patient was counseled that an arthroscopy could help with his mechanical symptoms, would not alleviate his arthritic symptoms. The patient stated understanding of this and elected to proceed with surgical intervention. Examination under anesthesia revealed range of motion of 0/4/120 with negative Franklin, negative anterior and posterior drawer. No varus valgus laxity, and negative pivot shift. ARTHROSCOPIC FINDINGS: The patella demonstrated a large osteophyte inferiorly with grade III chondral flaps inferiorly in a 10 x 10 area and grade III chondral flaps of the trochlea in a 10 x 10 area. There was complete loss of articular cartilage of the medial femoral condyle in a 30 x 30 area and adjacently on the tibial plateau in a 10 x 15 area. There was a degenerative tear of the medial meniscus from approximately one half of the posterior horn and body. There was a large impinging osteophyte off the anterior tibia just anterior to the ACL footprint. The lateral compartment demonstrated diffuse grade III chondral loss with no unstable chondral flaps. DESCRIPTION OF PROCEDURE: After the risks and benefits of the procedure were discussed and questions were answered and informed consent was signed and placed on chart, the operative site was confirmed in the preoperative holding area initialed by the surgeon. The patient was then transferred to the operating room. After adequate levels of general endotracheal anesthetic were obtained, a timeout was called, confirming the operative site. The left lower extremity was prepped and draped in the usual sterile fashion. After an examination under anesthesia was performed, the knee joint was injected with 60 mL of fluid. After prepping and draping, an inferolateral portal was placed for the arthroscope. Under direct visualization, inferior medial portal was created. Diagnostic arthroscopy was carried out with the above findings noted. Then, stable chondral flaps on the patella and trochlea were debrided with a shaver back to a stable edge. Scope was redirected into the medial compartment, where the medial meniscus tear was debrided with a shaver back to a stable edge. The anterior osteophyte was then excised with a bur and there was no impingement noted with the knee in extension. The knee joint was copiously irrigated. The portal sites were closed with 4-0 nylon in a septic fashion. Knee was injected with Duramorph. Port sites were infiltrated with plain Marcaine. A soft dressing was applied. The patient was transferred to recovery room awake and stable condition. Job ID: [id number] DocumentID: [id number] Dictated Date: 09/22/2021 09:00:06 It Service Delivery Manager Date: 09/22/2021 13:42:46 Dictated By: ELIGIO ZALDIVAR MD
--- NOTE | 2021-09-22 14:02 | Physical Therapy Ortho Eval ---
PT Orthopedic Evaluation Type of Surgery Knee Scope Prior Level of Function Current Living Status: Spouse Locomotion (Upon Admit): Independent Established Durable Medical Eq: Straight Cane Subjective Subjective Patient coming out of the bathroom upon PT arrival. Agreeable to treatment, reports no pain currently. Entry Into Home: Stairs With Railing Steps Into Home: 3 Motor Control Motor Control: Motor Control WNL ROM ROM: WFL, except focal deficit Strength Strength: Gen Weak,No Focal Deficit Transfer SCALE: Activities may be completed with or without assistive devices. 8-Okrnpxhhzs-tkxnrwo completes the activity by him/herself with no assistance from a helper. 5-Set-up or Clean-up Assistance-helper sets up or cleans up; patient completes activity. [place] assists only prior to or following the activity. 4-Supervision or Touching Assistance-helper provides verbal cues and/or touching/steadying and/or contact guard assistance as patient completes activity. Assistance may be provided throughout the activity or intermittently. 3-Partial/Moderate Assistance-helper does LESS THAN HALF the effort. [place] lifts, holds or supports trunk or limbs, but provides less than half the effort. 2-Substantial/Maximal Assistance-helper does MORE THAN HALF the effort. [place] lifts or holds trunk or limbs and provides more than half the effort. 1-Nclyirbor-gruknq does ALL the effort. Patient does none of the effort to complete the activity. Or, the assistance of 2 or more helpers is required for the patient to complete the activity. If activity was not attempted, code reason: 7-Patient Refused. 9-Not Applicable-not attempted and the patient did not perform the activity before the current illness, exacerbation or injury. 10-Not Attempted due to Environmental Limitations-(lack of equipment, weather restraints, etc.). 88-Not Attempted due to Medical Conditions or Safety Concerns. Transfers (B, C, W/C) (QC): 6 Gait Gait Assistive Device: Cane Single Point Right Lower Extremity: Right Weight Bearing Status RLE: Weight Bearing/Tolerated Left Lower Extremity: Left Weight Bearing Status LLE: Weight Bearing/Tolerated Distance (QC): 8=698-55 ft Distance: 100 Gait Level of Assist: 6 Summary/Comments Patient ascends/descends 1 step x 3 with cane in left UE with SBA and verbal cues for progression. Treatment Rendered Treatment: Therapeutic Exercises, Gait Train, Step Train Assessment/Goals Goal Time Frame: 1 Visit Understands HEP: Yes Plan Treatment Plan: Discharge PT/Family Agrees to Plan: Yes Time Time In: 1015 Time Out: 1025 Total Billed Treatment Time: 10 Billed Treatment Time Visit, ELIAZAR Yee PT Sep 22, 2021 14:02
--- NOTE | 2021-09-23 07:33 | Anesthesia-General Post-Op ---
General Patient Condition Mental Status/LOC: Same as Preop Cardiovascular: Satisfactory Nausea/Vomiting: Absent Respiratory: Satisfactory Pain: Controlled Complications: Absent Post Op Complications Complications None Follow Up Care/Instructions Patient Instructions None needed. Anesthesia/Patient Condition Patient Condition Patient was doing well in PACU after the procedure yesterday, no complaints, stable vital signs, no apparent adverse anesthesia problems. RUBY ADEN DO Sep 23, 2021 07:33
== END 2021-09-22 10:55 | disposition home or self-care (01) ==
LOC: SDC 06:48
PROVIDERS: ATTEND Orthopaedic Surgery
DX: S83.282A Other tear of lateral meniscus, current injury, left knee, initial encounter (principal); M94.262 Chondromalacia, left knee; M25.762 Osteophyte, left knee; G47.33 Obstructive sleep apnea (adult) (pediatric); M17.12 Unilateral primary osteoarthritis, left knee; Z99.89 Dependence on other enabling machines and devices; Z96.651 Presence of right artificial knee joint
CPT/HCPCS: 87081

== ENCOUNTER → 2022-07-28 | Outpatient (CLI) | payer MEDICARE | LOC: CARD 07:57 | PROVIDERS: ATTEND Physician Assistant | DX: I35.1 Nonrheumatic aortic (valve) insufficiency (principal); I11.9 Hypertensive heart disease without heart failure; I25.10 Atherosclerotic heart disease of native coronary artery without angina pectoris | CPT/HCPCS: 93306 ==

== ENCOUNTER 2022-08-23 12:06 | Outpatient (CLI) | payer MEDICARE ==
[~2022-08-23] VITALS: Ht 185.5 cm; Wt 108.2 kg
[2022-08-23] MEDS ORDERED: CEFUROXIME INJECTION 1,500 MG in NS (IVPB) 50 ML IV ONE (12:45)
[2022-08-23 13:34] VITALS: BP 151/66
--- NOTE | 2022-08-23 13:47 | Physical Therapy Pre-Op Eval ---
PT Pre-Surgical Assessment Type of Surgery Type of Surgery: left TKR Prior Level of Function Current Living Status: Spouse Locomotion (Upon Admit): Independent PLOF DME: Front Wheeled Walker Subjective Home: Single Level Current Living Status: Spouse Entry Into Home: Stairs With Railing Steps Into Home: 4 Steps Accessories: Railing Present Motor Control Motor Control: Motor Control WNL ROM ROM: WFL, except focal deficit Strength Strength: WFL Transfers Transfers (B, C, W/C) (FIM): 6 Gait Gait (FIM): 6 Gait Distance (FIM): 6 Distance: >500' Gait Assistive Device: None Treatment Rendered Treatment: Patient instructed in assistive device, supported ambulation. Patient instructed in and given written program of ROM and strengthening exercises to be preformed post-op. Patient instructed in movement precautions where applicable. Patient demonstrates understandings of post-operative therapy protocol including gait pattern and exercise program. Pre-operative instruction completed; await physical therapy orders after bettie leighton. Treatment Goal Met: Yes Assessment Goals Acheived: I Ambulation w/ FWW, Understands P-op Precaut, I Post-op Exercises Charges/GCodes Time In: 1325 Time Out: 1335 Total Billed Treatment Time: 10 Total Billed Treatment 1 Educ 1:1 ELIZABETH CARMONA PT Aug 23, 2022 13:47
[2022-08-23] MEDS ORDERED: LINA72CA PO (13:54)
[2022-08-23] MEDS ORDERED: TMSL.4C PO (13:54)
[2022-08-23] MEDS ORDERED: MULT-1136 PO (13:54)
[2022-08-23] MEDS ORDERED: GLUC1CAP14 PO (13:54)
[2022-08-23 14:26] LABS: BASOPHILS # (AUTO) 0.1 10^3/uL (0.0-0.1); BASOPHILS % (AUTO) 1 % (0-10); EOSINOPHILS # (AUTO) 0.2 10^3/uL (0.0-0.3); EOSINOPHILS % (AUTO) 3 % (0-10); HEMATOCRIT 45 % (40-54); HEMOGLOBIN 14.7 g/dL (13.3-17.7); LYMPHOCYTES # (AUTO) 1.3 10^3/uL (1.0-4.0); LYMPHOCYTES % (AUTO) 19 % (12-44); MEAN CORPUSCULAR HEMOGLOBIN 32 pg (25-34); MEAN CORPUSCULAR HGB CONC 32 g/dL (32-36); MEAN CORPUSCULAR VOLUME 100 fL (80-99); MEAN PLATELET VOLUME 10.7 fL (9.0-12.2); MONOCYTES # (AUTO) 0.7 10^3/uL (0.0-1.0); MONOCYTES % (AUTO) 10 % (0-12); NEUTROPHILS # (AUTO) 4.6 10^3/uL (1.8-7.8); NEUTROPHILS % (AUTO) 68 % (42-75); PLATELET COUNT 235 10^3/uL (130-400); WHITE BLOOD COUNT 6.7 10^3/uL (4.3-11.0)
[2022-08-23 14:35] LABS: ALBUMIN 4.6 GM/DL (3.2-4.5)
[2022-08-23 14:36] LABS: CHLORIDE 105 MMOL/L (98-107); POTASSIUM 3.4 MMOL/L (3.6-5.0); SODIUM 143 MMOL/L (135-145)
[2022-08-23 14:37] LABS: CALCIUM 9.8 MG/DL (8.5-10.1)
[2022-08-23 14:38] LABS: BILIRUBIN,URINE NEGATIVE (NEGATIVE); CLARITY,URINE CLEAR; COLOR,URINE YELLOW; GLUCOSE, URINE (UA) NEGATIVE (NEGATIVE); KETONES,URINE NEGATIVE (NEGATIVE); LEUKOCYTE ESTERASE ,URINE NEGATIVE (NEGATIVE); NITRITE,URINE NEGATIVE (NEGATIVE); PH,URINE 6.5 (5-9); PROTEIN,URINE TRACE (NEGATIVE)
[2022-08-23 14:38] LABS: GLUCOSE 82 MG/DL (70-105); TOTAL PROTEIN 8.2 GM/DL (6.4-8.2)
[2022-08-23 14:39] LABS: CARBON DIOXIDE 24 MMOL/L (21-32)
[2022-08-23 14:40] LABS: BILIRUBIN,TOTAL 1.4 MG/DL (0.1-1.0)
[2022-08-23 14:41] LABS: ALKALINE PHOSPHATASE 96 U/L (40-136); CREATININE SERUM 0.96 MG/DL (0.60-1.30); GFR ESTIMATED 78
[2022-08-23 14:43] LABS: BUN/CREATININE RATIO 20
[2022-08-23 14:44] LABS: ALANINE AMINOTRANSFERASE 22 U/L (0-55)
[2022-08-23 14:48] LABS: BACTERIA,URINE TRACE /HPF; RBC,URINE RARE /HPF; WBC,URINE RARE /HPF
[2022-08-23 14:59] LABS: ERYTHROCYTE SEDIMENTATION RATE 10 MM/HR (0-30)
[2022-08-23 15:41] LABS: INR 1.2 (0.8-1.4); PROTHROMBIN TIME PATIENT 15.4 SEC (12.2-14.7)
--- NOTE | 2022-08-23 16:25 | Diagnostic Imaging Report ---
INDICATION: Preoperative evaluation prior to knee replacement. COMPARISON: 07/06/2018 FINDINGS: Frontal and lateral radiographic views of the chest were obtained and demonstrate interval development of mild right basilar effusion and associated right basilar airspace disease. Left lung is relatively clear. There is no large effusion on the left. No pneumothorax is seen on either side. Cardiac silhouette and pulmonary vasculature are within normal limits. Osseous structures show no acute abnormalities. IMPRESSION: 1. Interval development of mild right basilar effusion. Dictated by: Dictated on workstation # [id number]
== END 2022-08-24 12:22 ==
LOC: PREOP 12:06
PROVIDERS: ATTEND Orthopaedic Surgery
DX: Z01.812 Encounter for preprocedural laboratory examination (principal); Z01.810 Encounter for preprocedural cardiovascular examination; M17.12 Unilateral primary osteoarthritis, left knee; J90 Pleural effusion, not elsewhere classified
CPT/HCPCS: 36415; 71046; 80053; 81000; 82308; 85025; 85610; 85652; 86850; 86900; 86901; 87081; 93005

== ENCOUNTER 2022-08-31 07:50 | Day surgery (SDC) | payer MEDICARE ==
--- NOTE | 2022-08-23 07:42 | HISTORY AND PHYSICAL ---
DATE OF SERVICE: 08/31/2022 ADMISSION HISTORY AND PHYSICAL This will be for inpatient admission on 08/31/2022 for left total knee arthroplasty. The patient will require regular inpatient admission due to need for physical therapy as well as pain management. HISTORY: The patient is an 81-year-old active gentleman with known osteoarthritis of his left knee. He has progressed to the point where he is having marked activity limitations because the knee was affecting his work as well as activities of daily living. He denies hip pain, back pain and paresthesias. He has undergone extensive conservative measures. Radiographs reveal severe medial and patellofemoral arthrosis. Due to functional impairment and failure to improve with conservative measures, the patient elected to proceed with surgical intervention. REVIEW OF SYSTEMS: No chest pain, no shortness of breath. No dysuria. FAMILY HISTORY: The patient denies tobacco use. Drinks alcohol socially. PAST MEDICAL HISTORY: Hypertension and arrhythmia. PAST SURGICAL HISTORY: Left knee arthroscopy, right total knee arthroplasty. FAMILY HISTORY: Lung disease, coronary arteriosclerosis. PRIMARY CARE PROVIDER: Dr. Meraz. MEDICATIONS: Irbesartan, amlodipine, carvedilol, potassium, furosemide, Eliquis. ALLERGIES: NO KNOWN DRUG ALLERGIES. PHYSICAL EXAMINATION: GENERAL: The patient is well-developed, well-nourished, in no acute distress. HEENT: Normocephalic, atraumatic. Pupils are equal, round and reactive to light. Oropharynx is clear. NECK: Supple, with no lymphadenopathy. LUNGS: Clear to auscultation bilaterally. HEART: Regular rate and rhythm. ABDOMEN: Soft, nontender, nondistended. EXTREMITIES: The patient ambulates with an antalgic gait. The left knee demonstrates varus alignment. He is tender along his medial femoral condyle. He has pain medially with Stephen's. Range of motion 0/3/120. IMPRESSION: Severe left knee osteoarthritis, unresponsive to conservative measures. PLAN: Left total knee arthroplasty. The risks, benefits, options, ramifications and recovery have been discussed at length with the patient. He understands and wishes to proceed. Job ID: [id number] DocumentID: [id number] Dictated Date: 08/11/2022 15:35:01 Autism Specialist Date: 08/11/2022 18:35:00 Dictated By: NIURKA ZALDIVAR MD
[2022-08-31] VITALS (11 sets, daily range): BP systolic 99–188; BP diastolic 56–94
[~2022-08-31] VITALS: Ht 185.5 cm; Wt 108.2 kg
[~2022-08-31 07:50] MED LIST changes: +GLUC1CAP14 PO; +LINA72CA PO; +MULT-1136 PO; +NALOXONE 0.4 MG/ML 1 ML (NARCAN) VIAL IV PRN; +ONDANSETRON 4 MG/2 ML (SDV) Z0FRAN IVP PRN; +TMSL.4C PO; +diphenhydrAMINE 50 MG/ML INJ (BENADRYL) IVP PRN
[2022-08-31] MEDS ORDERED: INTRA-ARTICULAR IU ONE ×5 (08:00)
[2022-08-31] MEDS ORDERED: CEFUROXIME INJECTION 1,500 MG in NS (IVPB) 50 ML IV ONE (08:00)
[2022-08-31] MEDS ORDERED: LACTATED RINGERS 1,000 ML IV PRN (08:00)
[2022-08-31] MEDS ORDERED: BUPIVACAINE 0.5% 30 ML (SENSORCAINE) VIAL ONE (08:21)
[2022-08-31] MEDS ORDERED: fentaNYL INJ 100 MCG/2 ML AMP ONE (08:21)
[2022-08-31] MEDS ORDERED: PROPOFOL INJECTION 50 ML IV ONE (08:21)
--- NOTE | 2022-08-31 09:09 | Progress Note-Pre Operative ---
Pre-Operative Progress Note Date of Available H&P: Aug 11, 2022 Date H&P Reviewed: Aug 31, 2022 Time H&P Reviewed: 07:11 Changes from last HP none Pre-Operative Diagnosis: left knee primary osteoarthritis NIURKA ZALDIVAR MD Aug 31, 2022 09:09
--- NOTE | 2022-08-31 09:10 | Progress Note-Post Operative ---
Post-Operative Progess Note Surgeon (s)/Podiatry Professor (s) Surgeon NIURKA ZALDIVAR MD Podiatry Professor: Adam Walker Pre-Operative Diagnosis left knee primary osteoarthritis Post-Operative Diagnosis left knee primary osteoarthritis Procedure & Operative Findings Date of Procedure 08/31/22 Procedure Performed/Findings left total knee arthroplasty Anesthesia Type spinal Estimated Blood Loss Estimated blood loss (mL): minimal Specimens/Packing Specimens Removed none Packing: none NIURKA ZALDIVAR MD Aug 31, 2022 09:10
--- NOTE | 2022-08-31 09:14 | D/C HH Face to Face Order ---
D/C Face to Face Orders Reconcile Patient Problems Problems Reviewed?: Yes Instructions for Patient Via [employer], Patient Instructions/FollowUp: three weeks Physician to follow Patient: three weeks Discharge Diet for Home: Regular Diet Patient Data-Allergies,Ht & Wt Patient Allergies: Coded Allergies: No Known Drug Allergies (Verified , 08/31/22) Height (Feet): 6 Height (Inches): 1.00 Weight (Pounds): 240 Weight (Ounces): 0.0 Home Health Need/Face to Face Date of Face to Face: Aug 31, 2022 Clinical Findings: Pain with ambulation, Unsteady gait I have seen Pt vedq-gi-axsi: Yes Discharged To: Home Diagnosis/Conditions: left total knee arthroplasty Patient is Homebound due to: Muscle weakness, Pain w/ambulation Homebound Status Due to the above stated illness, injury or surgical procedure (medical condition or diagnosis) and associated clinical findings, the patient is homebound because of his/her inability to leave home except with aid of a supportive device and/or person AND leaving the home requires a considerable and taxing effort or is medically contraindicated. Pt req the following assistanc: Walker Home Health Nursing Orders Home Health Services Order: Physical Therapy-Evaluate & Treat DC left knee al and apply steri strips 09/14/22 Home Health Infusion Therapy Line Start Date: Aug 31, 2022 Therapy Orders Therapy Orders: Physical Therapy, PT to assess for OT Therapy Specific Orders: Eval assistive deivces, Teach enviro modifications/safety, Gait training, Increase strength/endurance, Provider maintenance therapy, Restore ROM Certify Stmt I certify that this patient is under my care and that I, a nurse practitioner or a physician; a cosmetic sales assistant working with me, had a face to face encounter that - meets the physician face to face encounter requirements with this patient as dated. NIURKA ZALDIVAR MD Aug 31, 2022 09:14
[2022-08-31] MEDS ORDERED: TRANEXAMIC ACID 100 MG/ML 10 ML INJECTION ONE (09:19)
[2022-08-31] MEDS ORDERED: morphine PCA 100 MG/100 ML BAG IV PRN (09:30)
[2022-08-31] MEDS ORDERED: proPOfol 200 MG/20 ML (DIPRIVAN) VIAL IV ONE (10:20)
[2022-08-31] MEDS ORDERED: ONDANSETRON 4 MG/2 ML (SDV) Z0FRAN IVP PRN (11:00)
--- NOTE | 2022-08-31 11:24 | Progress Note ---
Standard Progress Note Progress Notes/Assess & Plan Date Seen by a Provider: Aug 31, 2022 Time Seen by a Provider: 11:23 Progress/Assessment & Plan post op check no complaints radiographs--HW well positioned without fracture LLE--block in effect DP pulse 1 plus with brisk cap refill s/p LTKA mobilize when able NIURKA ZALDIVAR MD Aug 31, 2022 11:24
--- NOTE | 2022-08-31 11:51 | Occ Therapy Progress Note ---
Therapy Progress Note OT order received, chart review indicates home health at [place], OT to initiate evaluation post op day 2 pending patient stay FAYE MEZA OT Aug 31, 2022 11:51
[2022-08-31] MEDS: NS IV 1000 ML 1,000 ML IV SCH ×2 (13:47→21:24)
--- NOTE | 2022-08-31 15:03 | Physical Therapy Evaluation ---
PT Evaluation-General Medical Diagnosis Admission Date Aug 31, 2022 at 07:42 Medical Diagnosis: LTKA Onset Date: Aug 31, 2022 Therapy Diagnosis Therapy Diagnosis: Gait deficit, strength deficit Height/Weight Height (Feet): 6 Height (Inches): 1.00 Weight (Pounds): 240 Weight (Ounces): 0.0 Precautions Precautions/Isolations: Fall Prevention Weight Bear Status Right Lower Extremity: Right Full Weight Bearing Left Lower Extremity: Left Weight Bearing/Tolerated Referral Physician: Marguerite Reason for Referral: Evaluation/Treatment Medical History Reviewed History: Yes Social History Home: Single Level Current Living Status: Spouse Entry Into Home: Stairs With Railing PT Steps Into Home: 3 Prior Prior Level of Function SCALE: Activities may be completed with or without assistive devices. 9-Hedcemawfj-erabuvv completes the activity by him/herself with no assistance from a helper. 5-Set-up or Clean-up Assistance-helper sets up or cleans up; patient completes activity. [place] assists only prior to or following the activity. 4-Supervision or Touching Assistance-helper provides verbal cues and/or touching/steadying and/or contact guard assistance as patient completes activity. Assistance may be provided throughout the activity or intermittently. 3-Partial/Moderate Assistance-helper does LESS THAN HALF the effort. [place] lifts, holds or supports trunk or limbs, but provides less than half the effort. 2-Substantial/Maximal Assistance-helper does MORE THAN HALF the effort. [place] lifts or holds trunk or limbs and provides more than half the effort. 7-Zrvafpfpm-yjsuax does ALL the effort. Patient does none of the effort to complete the activity. Or, the assistance of 2 or more helpers is required for the patient to complete the activity. If activity was not attempted, code reason: 7-Patient Refused. 9-Not Applicable-not attempted and the patient did not perform the activity before the current illness, exacerbation or injury. 10-Not Attempted due to Environmental Limitations-(lack of equipment, weather restraints, etc.). 88-Not Attempted due to Medical Conditions or Safety Concerns. Bed Mobility: 6 Transfers (B,C,W/C): 6 Gait: 6 Stairs: 6 Indoor Mobility (Ambulation): Independent Stairs: Independent Prior Devices Use: None PT Evaluation-Current Subjective Patient lying supine in bed upon PT arrival, agreeable to treatment. Patient rates pain at 5/10 currently in left knee. Objective Patient Orientation: Person, Place, Time, Situation ROM/Strength ROM Lower Extremities Left knee extension ~15 degrees from neutral AROM, flexion 85 degrees All other left LE and all RLE ROMs WFLs Strength Lower Extremities Right LE 5/5 all plans Left knee flexion and extension 3/5; left hip 4/5, left ankle 4/5 Sensory Vision: Functional Hearing: Impaired Sensation Right Lower Extremit: Intact Sensation Left Lower Extremity: Intact Transfers Roll Left to Right (QC): 4 Sit to Lying (QC): 4 Lying to Sitting/Side of Bed(Q: 4 Sit to Stand (QC): 4 Chair/Vhz-tr-Dclrx Xfer(QC): 4 Gait Does the Patient Walk?: Yes Mode of Locomotion: Walk Anticipated Mode of Locomotion: Walk Walk 10 feet (QC): 4 Distance: 30 Gait Assistive Device: FWW Balance Sitting Static: Good Sitting Dynamic: Good Standing Static: Fair Standing Dynamic: Fair Assessment/Needs Patient tolerated treatment well. Demonstrates good overall bed mobility and transfers with SBA for all. Patient ambulates 30 feet with FWW, with SBA and verbal cues for safety, progression, posture and conservation of energy. Patient in chair post treatment with all needs met, nursing notified, call light in hand. Rehab Potential: Good PT Mcc Goals Mcc Goals PT Mcc Goals Time Frame: Oct 01, 2022 Roll Left & Right (QC): 6 Sit to Lying (QC): 6 Lying-Sitting on Side/Bed(QC): 6 Sit to Stand (QC): 6 Chair/Gxa-yx-Akseq Xfer(QC): 6 Toilet Transfer (QC): 6 Does the Patient Walk: Yes Walk 10 feet (QC): 6 Walk 50ft with 2 Turns (QC): 6 Walk 150 ft (QC): 6 1 Step (curb) (QC): 4 4 Steps (QC): 4 12 Steps (QC): 4 PT Plan Problem List Problem List: Activity Tolerance, Functional Strength, Safety, Balance, Gait, Transfer, Bed Mobility, ROM Treatment/Plan Treatment Plan: Continue Plan of Care Treatment Plan: Bed Mobility, Education, Functional Activity Robbie, Functional Strength, Group Therapy, Gait, Safety, Therapeutic Exercise, Transfers Treatment Duration: Oct 01, 2022 Frequency: 11 times per week Estimated Hrs Per Day: .25 hour per day Patient and/or Family Agrees t: Yes Safety Risks/Education Patient Education: Gait Training, Transfer Techniques Teaching Recipient: Patient Teaching Methods: Demonstration, Discussion Response to Teaching: Verbalize Understanding, Return Demonstration Time Time In: 1340 Time Out: 1400 DATE: Aug 31, 2022 Total Billed Treatment Time: 20 Total Billed Treatment Visit, ELIAZAR BRADSHAW PT Aug 31, 2022 15:03
[2022-08-31] MEDS ORDERED: POTA10TA PO (15:19)
[2022-08-31] MEDS: CEFUROXIME INJECTION 750 MG in NS (IVPB) 50 ML IV SCH ×2 (16:33→23:56)
--- NOTE | 2022-08-31 16:34 | OPERATIVE REPORT ---
DATE OF SERVICE: 08/31/2022 PREOPERATIVE DIAGNOSIS: Left knee primary osteoarthritis. POSTOPERATIVE DIAGNOSIS: Left knee primary osteoarthritis. PROCEDURE: Left total knee arthroplasty. SURGEON: Eligio Zaldivar MD MEDIA TRAFFIC MANAGER: Adam Walker, who assisted throughout the procedure and closed the incisions. ANESTHESIA: Spinal by Dr. Hu. TOURNIQUET TIME: Approximately 60 minutes at 300 mmHg. ESTIMATED BLOOD LOSS: Minimal. DRAINS: None. COMPLICATIONS: None. POSTOPERATIVE PLAN: Routine total knee arthroplasty protocol. The patient was transported to the recovery room awake and stable condition. MATERIALS: Microport cemented size 7 femur, cemented size 7 tibia with 10 mm insert and cemented size 32 patellar button. STATEMENT OF MEDICAL NECESSITY: The patient is an 81-year-old gentleman with longstanding left knee pain. He had known osteoarthritis and been treated with injections, anti-inflammatories as well as arthroscopy without relief. Due to functional impairment and failure to improve with conservative measures, the patient elected to proceed with surgical intervention. Radiographs revealed severe joint space narrowing of the patellofemoral joint and medial joint space. DESCRIPTION OF PROCEDURE: After risks and benefits of the procedure were discussed and questions were answered and informed consent was signed and placed on chart, the operative site was confirmed in the preoperative holding area, initialed by the surgeon. The patient was then transferred to the operating room and after adequate levels of regional anesthetic were obtained, a timeout was called, confirming the operative site. The left lower extremity was prepped and draped in the usual sterile fashion with the leg elevated and the knee flexed and tourniquet inflated to 300 mmHg. Standard anterior approach was utilized. Hemostasis was obtained with cautery. Medial parapatellar arthrotomy was performed, leaving 1 cm cuff on the patella for later reattachment. A subperiosteal release was performed in the proximal medial tibia. The ACL was resected. The intramedullary guide was passed into the femoral canal. The distal cutting block was placed and the distal cut was made. The femur sized to a size 7. The 7 cutting block was placed parallel to the epicondylar axis and cuts were made from posterior to anterior. A subperiosteal release was then carefully performed on the posterior distal femur, being careful to stay on the bony surface. Intramedullary guide was passed into the tibia. The cutting block was placed. The drop shira transected the intermalleolar axis and the cut was made. The tibial baseplate provided excellent coverage. The drop shira transected the intermalleolar axis and this was prepared with the drill and keel punch. The femoral trial was placed and trochlear cut was made. The patella was then prepared by resecting 10 mm off under surface of the patella, guide was placed and the patellar holes were drilled. The trials were inserted with 10 mm insert and 35 button. Full extension was easily obtained, 120 degrees of flexion was obtained with gravity. There was no anterior/posterior or medial/lateral laxity in flexion or extension. The trials were removed. The joint was irrigated with pulse lavage. Periarticular block was placed in the posterior capsule, medial and lateral retinaculum, extensor mechanism, subcutaneous tissues. The bone ends were irrigated and dried. The tibial prosthesis was cemented into position. Excessive cement was removed. Superior surface was irrigated and dried and the polyethylene insert was placed. Distal femur was irrigated and dried and the femoral prosthesis was then cemented into position. The knee was brought out into full extension until cement had cured. The undersurface of the patella was irrigated, dried and the patellar button was cemented into position. Once the cement had cured, the knee was taken through range of motion. The patella tracked well. There was no anterior/posterior or medial/lateral laxity in flexion or extension. Range of motion was 0/0/120 with gravity. The joint was further irrigated with pulse lavage. The arthrotomy was closed with #2 Tevdek in yphwel-lg-irpnq interrupted fashion and subcutaneous tissues were irrigated with pulse lavage using a total of 6 liters throughout the procedure. 0 Vicryl was used for deep subcutaneous tissue, 0 Vicryl for the superficial subcutaneous tissue, al used on the skin. A soft dressing was applied. The tourniquet was deflated. The patient was transferred to recovery room awake and stable condition. Job ID: [id number] DocumentID: [id number] Dictated Date: 08/31/2022 10:46:37 Record Clerk Date: 08/31/2022 16:32:00 Dictated By: ELIGIO ZALDIVAR MD
--- NOTE | 2022-08-31 17:07 | Consultation - Hospitalist ---
HPI History of Present Illness: HPI/Chief Complaint Arvind Valencia is an 81 year old male with PMH HTN, AFib, BPH, OA, who presented for a scheduled TKA. He underwent his surgery with Dr. Everett this morning. He just arrived to the floor. His is in the room with him. He has no complaints. He denies pain. He denies shortness of breath. He denies nausea. We discussed the plan for his pain control, bowel regimen, incentive spriometer, and physical therapy. Source: patient Exam Limitations: no limitations Date Seen 08/31/22 Attending Physician Ozzy Meraz MD PCP Admitting Physician: Eligio Everett MD Attending Physician: Eilgio Everett MD Referring Physician Date of Admission Aug 31, 2022 at 07:42 Home Medications & Allergies Home Medications Reviewed patient Home Medication Reconciliation performed by pharmacy medication reconciliations environmental field technician and/or nursing. Patients Allergies have been reviewed. Allergies Allergies Coded Allergies No Known Drug Allergies (Verified08/31/22) Past Xxcmhar-Vhvvwt-Arwafg Hx Patient Social History Tobacco Use?: No Smoking Status: Never a Smoker Smokeless Tobacco Frequency: Never a User Use of E-Cig and/or Vaping Oren: Never a User Substance use?: No Alcohol Use?: No Pt feels they are or have been: No Immunizations Up To Date Date of Influenza Vaccine: Mar 05, 2021 First/Initial COVID19 Vaccinat: 07/27 Second COVID19 Vaccination Dash: 08/24 Hepatitis A: No Hepatitis B: No Date of Pneumonia Vaccine: Jun 07, 2021 Seasonal Allergies Seasonal Allergies: No Current Status Advance Directives: Unable to obtain Advance Directive Location: Home Communicates: Verbally Primary Language: [place] African Preferred Spoken Language: [place] African Sensory deficits: Vision impairment, Hearing impairment Implanted or Applied Medical D: None Past Medical History Surgeries: Joint Replacement, Orthopedic Sleep Apnea Currently Using CPAP: Yes (AT HOME, AT NIGHT) Currently Using BIPAP: No Atrial Fibrillation, High Cholesterol, Hypertension, Valvular Heart Disease Arthritis Loss of Vision: Denies Hearing Impairment: Bilateral Hearing Aide Blood Disorders: No Adverse Reaction/Blood Tranf: No Family Medical History Cardiovascular disease 19 FATHER Dementia G8 SISTER Hypertension 19 FATHER Myocardial infarction 19 FATHER Respiratory disorder 19 MOTHER Tuberculosis 19 MOTHER No Family History of: AIDS Alcoholism Alzheimer's disease Arthritis Asthma Cancer of mouth Cataracts Colon cancer Completed stroke Diabetes mellitus Drug abuse Glaucoma Kidney disease Parkinson's disease Prostate cancer Psychosocial problem Seizure disorder Review of Systems Constitutional: no symptoms reported EENTM: no symptoms reported Respiratory: no symptoms reported Cardiovascular: no symptoms reported Gastrointestinal: no symptoms reported Physical Exam Physical Exam Vital Signs Vital Signs - First Documented 08/31/22 08:10 Temp 36.1 Pulse 77 Resp 22 B/P (MAP) 130/89 (103) Pulse Ox 95 O2 Delivery Room Air Capillary Refill : Less Than 3 Seconds Height, Weight, BMI Height: 6'1.00" Weight: 240lbs. 0.0oz. 108.005979il; 31.44 BMI Method:Stated General Appearance: No Apparent Distress, Obese HEENT: PERRL/EOMI, Pharynx Normal Neck: Normal Inspection, Supple Respiratory: Lungs Clear, No Respiratory Distress Cardiovascular: Regular Rate, Rhythm, No Murmur Gastrointestinal: Normal Bowel Sounds, Non Tender, Soft Extremity: Normal Inspection, No Pedal Edema Neurologic/Psychiatric: Alert, Normal Mood/Affect Skin: Normal Color, Warm/Dry Results Results/Procedures Labs Patient resulted labs reviewed. Assessment/Plan Assessment and Plan Assess & Plan/Chief Complaint s/p TKA OA Ortho primary, Dr. Everett Pain regimen Bowel regimen Incentive spirometry PT/OT HTN BPH AFib Obesity Continue home meds as able Resume Eliquis once ok with Dr. Everett DVT prophylaxis: Lovenox Diagnosis/Problems Diagnosis/Problems (1) Osteoarthritis of left knee Status: Acute Qualifiers: Osteoarthritis type: primary Qualified Codes: M17.12 - Unilateral primary osteoarthritis, left knee (2) S/P total knee arthroplasty Status: Acute Qualifiers: Laterality: left Qualified Codes: Z96.652 - Presence of left artificial knee joint (3) HTN (hypertension) Status: Chronic (4) BPH (benign prostatic hyperplasia) Status: Chronic (5) Afib Status: Chronic (6) Obesity Status: Chronic GLENDY SLOAN MD Aug 31, 2022 17:07
--- NOTE | 2022-08-31 17:13 | Diagnostic Imaging Report ---
INDICATION: Postoperative left total knee replacement TECHNIQUE: 2 portable post operative radiographs of the knee CORRELATION STUDY: None FINDINGS: There are postsurgical changes of a total knee arthroplasty. Alignment is anatomic. Installed hardware appearing unremarkable. Overlying soft tissue gas collections and skin al are present. IMPRESSION: Postsurgical changes of a total knee replacement. Dictated by: Dictated on workstation # [id number]
[2022-08-31] MEDS ORDERED: hydrALAZINE (APESOLINE) 20 MG/ML VIAL IV PRN (17:15)
[2022-08-31] MEDS: SENNA W/DOCUSATE (SENOKOT S) TABLET PO SCH (21:23)
[2022-09-01 03:25] VITALS: BP 171/82
[2022-09-01 05:53] LABS: HEMOGLOBIN 12.3 g/dL (13.3-17.7)
[2022-09-01] MEDS: KCL 10 MEQ TAB (MICRO K) PO SCH (06:00)
[2022-09-01 07:32] VITALS: BP_SYST 128; BP_SYST 129; BP_SYST 167; BP_DIAS 57; BP_DIAS 72; BP_DIAS 77
--- NOTE | 2022-09-01 07:58 | Progress Note ---
Standard Progress Note Progress Notes/Assess & Plan Date Seen by a Provider: Sep 01, 2022 Time Seen by a Provider: 07:57 Progress/Assessment & Plan post op check no complaints radiographs--HW well positioned without fracture LLE--block in effect DP pulse 1 plus with brisk cap refill s/p LTKA mobilize when able Final Diagnosis no complaints Laboratory Tests Test 09/01/22 05:13 Range/Units Hemoglobin 12.3 L 13.3-17.7 g/dL Hematocrit 38 L 40-54 % Vital Signs Date Time Temp Pulse Resp B/P (MAP) Pulse Ox O2 Delivery O2 Flow Rate FiO2 09/01/22 07:32 36.3 84 20 167/77 (107) 94 Nasal Cannula 2.00 09/01/22 03:25 37.3 87 18 171/82 (111) 96 Nasal Cannula 2.00 08/31/22 23:18 37.1 93 20 162/84 (110) 95 Room Air 2.00 2.00 08/31/22 21:15 Room Air 08/31/22 20:02 36.4 97 20 150/90 (110) 90 08/31/22 16:12 36.2 61 18 179/84 (115) 96 Room Air 08/31/22 14:17 35.9 18 08/31/22 12:00 35.9 52 18 150/87 (108) 93 Room Air 08/31/22 11:40 Room Air 08/31/22 11:30 Room Air 08/31/22 11:25 36.1 19 139/75 (96) 94 Room Air 08/31/22 11:20 16 146/83 (104) 97 Room Air 08/31/22 11:15 Room Air 08/31/22 11:10 12 128/75 (92) 98 OxyMask 10.00 08/31/22 11:00 OxyMask 10.00 08/31/22 11:00 14 114/59 (77) 98 OxyMask 10.00 08/31/22 10:50 16 118/64 (82) 96 OxyMask 10.00 08/31/22 10:45 36.5 16 99/56 (70) 93 OxyMask 10.00 08/31/22 10:45 OxyMask 10.00 08/31/22 08:10 36.1 77 22 130/89 (103) 95 Room Air 08/31/22 08:10 95 Room Air I & O 09/01/22 07:00 Intake Total 2742 ml Output Total 350 ml Balance 2392 ml L LLE NVI distally no calf tenderness dressing clean and dry s/p LTKA PT/OT NIURKA ZALDIVAR MD Sep 01, 2022 07:58
[2022-09-01] MEDS: ASPIRIN E.C. 81 MG (ECOTRIN) TAB PO SCH (08:44)
[2022-09-01] MEDS: LOSARTAN 100 MG (COZAAR) TABLET PO SCH (08:44)
[2022-09-01] MEDS: SENNA W/DOCUSATE (SENOKOT S) TABLET PO SCH ×2 (08:44→21:31)
[2022-09-01] MEDS: FUROSEMIDE 40 MG (LASIX) TAB PO SCH (08:44)
[2022-09-01] MEDS: TAMSULOSIN 0.4 MG (FLOMAX) CAP PO SCH (08:44)
[2022-09-01] MEDS: oxyCODONE/APAP 5/325MG (PERCOCET 5) TABLET PO PRN ×3 (08:44→21:33)
[2022-09-01] MEDS: amLODIPine 5 MG (NORVASC) TAB PO SCH (08:45)
[2022-09-01] MEDS: ENOXAPARIN INJECTION 30 MG/0.3 ML SYR SC SCH ×2 (08:45→21:37)
[2022-09-01] MEDS ORDERED: NON-FORMULARY MEDICATION 1 EA EA (Linaclotide (Linzess) 72 MCG) PO SCH (09:00)
[2022-09-01] MEDS ORDERED: NON-FORMULARY MEDICATION 1 EA EA (Irbesartan 300 MG) PO SCH (09:00)
--- NOTE | 2022-09-01 09:37 | Physical Therapy Daily Note ---
PT Daily Note-Current Subjective Patient agrees to PT. Pain Numeric Pain Scale: 8 Location: Left Location Body Site: Knee Pain Description: Acute Section J - Health Conditions 1. Rarely or not at all 2. Occasionally 3. Frequently 4. Almost constantly 8. Unable to answer Pain Effect on Sleep: 2 Pain Interference with Therapy: 2 Pain Interference w/Day-to-Day: 2 Mental Status Patient Orientation: Normal For Age Attachments: IV Transfers SCALE: Activities may be completed with or without assistive devices. 8-Iocojftknj-nyiqojs completes the activity by him/herself with no assistance from a helper. 5-Set-up or Clean-up Assistance-helper sets up or cleans up; patient completes activity. [place] assists only prior to or following the activity. 4-Supervision or Touching Assistance-helper provides verbal cues and/or touching/steadying and/or contact guard assistance as patient completes activity. Assistance may be provided throughout the activity or intermittently. 3-Partial/Moderate Assistance-helper does LESS THAN HALF the effort. [place] lifts, holds or supports trunk or limbs, but provides less than half the effort. 2-Substantial/Maximal Assistance-helper does MORE THAN HALF the effort. [place] lifts or holds trunk or limbs and provides more than half the effort. 8-Hlpfvoqxk-fsdacv does ALL the effort. Patient does none of the effort to complete the activity. Or, the assistance of 2 or more helpers is required for the patient to complete the activity. If activity was not attempted, code reason: 7-Patient Refused. 9-Not Applicable-not attempted and the patient did not perform the activity before the current illness, exacerbation or injury. 10-Not Attempted due to Environmental Limitations-(lack of equipment, weather restraints, etc.). 88-Not Attempted due to Medical Conditions or Safety Concerns. Lying to Sitting/Side of Bed(Q: 6 Sit to Stand (QC): 4 Chair/Kbl-rk-Sveez Xfer(QC): 4 Weight Bearing Right Lower Extremity: Right Full Weight Bearing Left Lower Extremity: Left Weight Bearing/Tolerated Gait Training Distance: 225' Walk 10 feet (QC): 4 Walk 50 ft with 2 Turns(QC): 4 Walk 150 ft (QC): 4 Gait Assistive Device: FWW slow, antalgic, reciprocal pattern Exercises Supine Ex: Ankle pumps, Quad Set, Heel Slides, Straight leg raise Supine Reps: 15 Seated Therapy Exercises: Long arc quads Seated Reps: 15 Assessment Patient tolerated treatment well and is up in recliner with needs met. Patient has noted left LE edema total LE. PT to increase activity as tolerated by janneth prescott. PT Furniture Salesperson Goals Furniture Salesperson Goals PT Furniture Salesperson Goals Time Frame: Oct 01, 2022 Roll Left & Right (QC): 6 Sit to Lying (QC): 6 Lying-Sitting on Side/Bed(QC): 6 Sit to Stand (QC): 6 Chair/Tze-am-Kwzdb Xfer(QC): 6 Toilet Transfer (QC): 6 Does the Patient Walk: Yes Walk 10 feet (QC): 6 Walk 50ft with 2 Turns (QC): 6 Walk 150 ft (QC): 6 1 Step (curb) (QC): 4 4 Steps (QC): 4 12 Steps (QC): 4 PT Plan Treatment/Plan Treatment Plan: Continue Plan of Care Treatment Plan: Bed Mobility, Education, Functional Activity Robbie, Functional Strength, Group Therapy, Gait, Safety, Therapeutic Exercise, Transfers Treatment Duration: Oct 01, 2022 Frequency: 11 times per week Estimated Hrs Per Day: .25 hour per day Patient and/or Family Agrees t: Yes Time Time In: 815 Time Out: 840 DATE: Sep 01, 2022 Total Billed Treatment Time: 25 Total Billed Treatment 1 visit Ex 11 min GT 14 min ELIZABETH CARMONA PT Sep 01, 2022 09:37
[2022-09-01 11:04] VITALS: BP 177/92
--- NOTE | 2022-09-01 11:20 | Occupational Therapy Eval ---
OT Evaluation-General/PLF Medical Diagnosis Admission Date Aug 31, 2022 at 07:42 Medical Diagnosis: LTKA Onset Date: Aug 31, 2022 Therapy Diagnosis Therapy Diagnosis: weakness Height/Weight Height (Feet): 6 Height (Inches): 1.00 Weight (Pounds): 240 Weight (Ounces): 0.0 Precautions Precautions/Isolations: Fall Prevention, Standard Precautions Weight Bear Status Weight Bearing Restriction: Weight Bearing/Tolerated Referral Physician: Marguerite Referral Reason: Self Care, Evaluation/Treatment Social History Home: Single Level Current Living Status: Spouse Entry Into Home: Stairs With Railing Steps Into Home: 3 ADL-Prior Level of Function SCALE: Activities may be completed with or without assistive devices. 1-Lcnzymipge-scpbrry completes the activity by him/herself with no assistance from a helper. 5-Set-up or Clean-up Assistance-helper sets up or cleans up; patient completes activity. [place] assists only prior to or following the activity. 4-Supervision or Touching Assistance-helper provides verbal cues and/or touching/steadying and/or contact guard assistance as patient completes activity. Assistance may be provided throughout the activity or intermittently. 3-Partial/Moderate Assistance-helper does LESS THAN HALF the effort. [place] lifts, holds or supports trunk or limbs, but provides less than half the effort. 2-Substantial/Maximal Assistance-helper does MORE THAN HALF the effort. [place] lifts or holds trunk or limbs and provides more than half the effort. 0-Fjuxyvpxc-dsbnps does ALL the effort. Patient does none of the effort to complete the activity. Or, the assistance of 2 or more helpers is required for the patient to complete the activity. If activity was not attempted, code reason: 7-Patient Refused. 9-Not Applicable-not attempted and the patient did not perform the activity before the current illness, exacerbation or injury. 10-Not Attempted due to Environmental Limitations-(lack of equipment, weather restraints, etc.). 88-Not Attempted due to Medical Conditions or Safety Concerns. Self Care: Independent Functional Cognition: Independent Drive Self: Yes OT Current Status Subjective Eager and agreeable to OT Mental Status/Objective Patient Orientation: Person, Place, Time, Situation Attachments: IV, Polar Pack Current Glasses/Contacts: Yes Hearing Aids: No (hard of hearing) Upper Extremity ROM BUE ROM/strength/coordination WFLS/ Intact ADL-Treatment Eating (QC): 6 Oral Hygiene (QC): 5 Shower/Bathe Self (QC): 3 Upper Body Dressing (QC): 4 Lower Body Dressing (QC): 3 (education provided for LB dressing sequences, and use of ADs) On/Off Footwear (QC): 3 Toileting Hygiene (QC): 3 Education OT Patient Education: Correct positioning, Energy conservation, Modified ADL techniques, Progress toward Goal/Update tx plan, Purpose of tx/functional activities, Reviewed precautions, Rehab process, Safety issues, Transfer techniques, Use of adapted equipment Teaching Recipient: Patient Teaching Methods: Demonstration, Discussion Response to Teaching: Reinforcement Needed OT Nursing Home Goals Senior Windows Administrator Goals Oral Hygiene (QC): 6 Toileting Hygiene (QC): 6 Shower/Bathe Self (QC): 6 Upper Body Dressing (QC): 6 Lower Body Dressing (QC): 6 On/Off Footwear (QC): 6 1=Demonstrate adherence to instructed precautions during ADL tasks. 2=Patient will verbalize/demonstrate understanding of assistive devices/modifications for ADL. 3=Patient will improve strength/tolerance for activity to enable patient to perform ADL's. OT Education/Plan Problem List/Assessment Assessment: Decreased Activ Tolerance, Impaired Coordination, Impaired Funct Balance, Impaired Self-Care Skills Discharge Recommendations Plan/Recommendations: Continue POC Equpiment Recommendations-D/C: Sales And Service Officer (supplied) Treatment Plan/Plan of Care Treatment,Training & Education: Yes Patient would benefit from OT for education, treatment and training to promote independence in ADL's, mobility, safety and/or upper extremity function for ADL's. Plan of Care: ADL Retraining, Functional Mobility, Group Exercise/Act as Ind, UE Funct Exercise/Act Treatment Duration: Sep 03, 2022 Frequency: 3 times per week (3-5 times/ week) Rehab Potential: Good Time Start Time: 09:10 Stop Time: 09:35 DATE: Sep 01, 2022 Total Time Billed (hr/min): 25 Billed Treatment Time JEFERSON MARCELO 1 25 min FAYE MEZA OT Sep 01, 2022 11:20
[2022-09-01] MEDS: NS IV 1000 ML 1,000 ML IV SCH ×2 (11:26→21:34)
--- NOTE | 2022-09-01 13:32 | Anesthesia-Regional Post-Op ---
Regional Patient Condition Mental Status: Alert, Oriented x3 Circulation: Same as Pre-Op Headache: Absent Sensation: Full Recovery Motor Block: Absent Post Op Complications Complications None Follow Up Care/Instructions Patient Instructions None needed. Anesthesia/Patient Condition Patient is doing well, no complaints, stable vital signs, no apparent adverse anesthesia problems. No complications reported per nursing. CARLITO HADDAD CRNA Sep 01, 2022 13:32
--- NOTE | 2022-09-01 14:01 | Physical Therapy Daily Note ---
PT Daily Note-Current Subjective Patient agrees to PT. Pain Numeric Pain Scale: 7 Location: Left Location Body Site: Knee Pain Description: Acute Section J - Health Conditions 1. Rarely or not at all 2. Occasionally 3. Frequently 4. Almost constantly 8. Unable to answer Pain Effect on Sleep: 2 Pain Interference with Therapy: 2 Pain Interference w/Day-to-Day: 2 Mental Status Patient Orientation: Normal For Age Attachments: Oxygen, IV Transfers SCALE: Activities may be completed with or without assistive devices. 8-Vqjbthutxh-llqnutr completes the activity by him/herself with no assistance from a helper. 5-Set-up or Clean-up Assistance-helper sets up or cleans up; patient completes activity. [place] assists only prior to or following the activity. 4-Supervision or Touching Assistance-helper provides verbal cues and/or touchin g/steadying and/or contact guard assistance as patient completes activity. Assistance may be provided throughout the activity or intermittently. 3-Partial/Moderate Assistance-helper does LESS THAN HALF the effort. [place] lifts, holds or supports trunk or limbs, but provides less than half the effort. 2-Substantial/Maximal Assistance-helper does MORE THAN HALF the effort. [place] lifts or holds trunk or limbs and provides more than half the effort. 4-Cdzugsgrc-uwqpzp does ALL the effort. Patient does none of the effort to complete the activity. Or, the assistance of 2 or more helpers is required for the patient to complete the activity. If activity was not attempted, code reason: 7-Patient Refused. 9-Not Applicable-not attempted and the patient did not perform the activity before the current illness, exacerbation or injury. 10-Not Attempted due to Environmental Limitations-(lack of equipment, weather restraints, etc.). 88-Not Attempted due to Medical Conditions or Safety Concerns. Sit to Lying (QC): 6 Lying to Sitting/Side of Bed(Q: 6 Sit to Stand (QC): 4 Weight Bearing Right Lower Extremity: Right Full Weight Bearing Left Lower Extremity: Left Weight Bearing/Tolerated Gait Training Distance: 250' Walk 10 feet (QC): 5 Walk 50 ft with 2 Turns(QC): 5 Walk 150 ft (QC): 5 Gait Assistive Device: FWW improve reciprocal pattern/slightly antalgic Exercises Supine Ex: Ankle pumps, Quad Set, Heel Slides, Straight leg raise Supine Reps: 15 Seated Therapy Exercises: Long arc quads Seated Reps: 15 Assessment Patient requires time to complete all functional tasks. Patient returned to bed with SCD's and polar pack left knee in place. Plan dismissal tomorrow after therapy. PT Retirement Goals Retirement Goals PT Kettle Worker Goals Time Frame: Oct 01, 2022 Roll Left & Right (QC): 6 Sit to Lying (QC): 6 Lying-Sitting on Side/Bed(QC): 6 Sit to Stand (QC): 6 Chair/Ray-og-Hqupz Xfer(QC): 6 Toilet Transfer (QC): 6 Does the Patient Walk: Yes Walk 10 feet (QC): 6 Walk 50ft with 2 Turns (QC): 6 Walk 150 ft (QC): 6 1 Step (curb) (QC): 4 4 Steps (QC): 4 12 Steps (QC): 4 PT Plan Treatment/Plan Treatment Plan: Continue Plan of Care Treatment Plan: Bed Mobility, Education, Functional Activity Robbie, Functional Strength, Group Therapy, Gait, Safety, Therapeutic Exercise, Transfers Treatment Duration: Oct 01, 2022 Frequency: 11 times per week Estimated Hrs Per Day: .25 hour per day Patient and/or Family Agrees t: Yes Time Time In: 1328 Time Out: 1354 DATE: Sep 01, 2022 Total Billed Treatment Time: 26 Total Billed Treatment 1 visit GT 10 min EX 16 min ELIZABETH CARMONA PT Sep 01, 2022 14:01
[2022-09-01 16:00] VITALS: BP 173/84
--- NOTE | 2022-09-01 18:30 | Progress Note - Hospitalist ---
Subjective HPI/CC On Admission Date Seen by Provider: Sep 01, 2022 Time Seen by Provider: 09:30 Arvind Valencia is an 81 year old male with PMH HTN, AFib, BPH, OA, who presented for a scheduled TKA. He underwent his surgery with Dr. Everett this morning. He just arrived to the floor. His is in the room with him. He has no complain ts. He denies pain. He denies shortness of breath. He denies nausea. We discussed the plan for his pain control, bowel regimen, incentive spriometer, and physical therapy. Subjective/Events-last exam He is feeling well. He has some pain. He has been eating and drinking. He has b een walking. He has no complaints or concerns. Objective Exam Vital Signs Vital Signs Date Time Temp Pulse Resp B/P (MAP) Pulse Ox O2 Delivery O2 Flow Rate FiO2 09/01/22 16:00 37.8 92 16 173/84 (113) 95 Nasal Cannula 2.00 Capillary Refill : Less Than 3 Seconds General Appearance: No Apparent Distress, Obese Respiratory: Lungs Clear, No Respiratory Distress Cardiovascular: Regular Rate, Rhythm, No Murmur Gastrointestinal: Normal Bowel Sounds, Soft Extremity: Normal Inspection, No Pedal Edema Neurologic/Psychiatric: Alert, Normal Mood/Affect Skin: Normal Color, Warm/Dry Results/Procedures Lab Laboratory Tests 09/01/22 05:13 Patient resulted labs reviewed. Assessment/Plan Assessment and Plan Assess & Plan/Chief Complaint s/p TKA OA Ortho primary, Dr. Everett Pain regimen Bowel regimen Incentive spirometry PT/OT HTN BPH AFib Obesity Continue home meds as able Increase Coreg Resume Eliquis once ok with Dr. Everett DVT prophylaxis: Lovenox Diagnosis/Problems Diagnosis/Problems (1) Osteoarthritis of left knee Status: Acute Qualifiers: Osteoarthritis type: primary Qualified Codes: M17.12 - Unilateral primary osteoarthritis, left knee (2) S/P total knee arthroplasty Status: Acute Qualifiers: Laterality: left Qualified Codes: Z96.652 - Presence of left artificial knee joint (3) HTN (hypertension) Status: Chronic (4) BPH (benign prostatic hyperplasia) Status: Chronic (5) Afib Status: Chronic (6) Obesity Status: Chronic GLENDY SLOAN MD Sep 01, 2022 18:30
[2022-09-01 20:09] VITALS: BP 157/71
--- NOTE | 2022-09-01 22:26 | DISCHARGE SUMMARY ---
DISCHARGE DIAGNOSES: 1. Left knee primary osteoarthritis. 2. Hypertension. 3. Arrhythmia. PROCEDURE PERFORMED: Left total knee arthroplasty. SUMMARY: The patient is an 81-year-old gentleman who underwent a left total knee arthroplasty on the day of admission. Postoperatively, he did well. At the time of discharge, his wound was clean and dry and no calf tenderness. Negative Homans sign. He was tolerating his diet well and tolerating pain with oral pain medication. CONDITION AT DISCHARGE: Good. DISCHARGE DIET: Regular. FOLLOWUP: Followup is in 3 weeks. ACTIVITIES: Weightbearing as tolerated with a walker. DISCHARGE MEDICATIONS: Home medications and Percocet as needed for pain Job ID: [id number] DocumentID: [id number] Dictated Date: 09/01/2022 08:02:25 Staff Services Manager Date: 09/01/2022 22:25:00 Dictated By: NIURKA ZALDIVAR MD
[2022-09-01 23:27] VITALS: BP 168/98
[2022-09-02 03:05] VITALS: BP 159/74
[2022-09-02] MEDS: NS IV 1000 ML 1,000 ML IV SCH (03:51)
[2022-09-02] MEDS: KCL 10 MEQ TAB (MICRO K) PO SCH (05:31)
[2022-09-02] MEDS: oxyCODONE/APAP 5/325MG (PERCOCET 5) TABLET PO PRN (05:31)
--- NOTE | 2022-09-02 07:04 | Progress Note ---
Standard Progress Note Progress Notes/Assess & Plan Date Seen by a Provider: Sep 02, 2022 Time Seen by a Provider: 06:53 Progress/Assessment & Plan post op check no complaints radiographs--HW well positioned without fracture LLE--block in effect DP pulse 1 plus with brisk cap refill s/p LTKA mobilize when able Final Diagnosis no complaints Laboratory Tests Test 09/02/22 05:18 Range/Units Hemoglobin 11.0 L 13.3-17.7 g/dL Hematocrit 35 L 40-54 % Vital Signs Date Time Temp Pulse Resp B/P (MAP) Pulse Ox O2 Delivery O2 Flow Rate FiO2 09/02/22 03:05 36.9 67 18 159/74 (102) 93 Nasal Cannula 2.00 2.00 09/01/22 23:27 36.9 96 18 168/98 (121) 96 Nasal Cannula 2.00 2.00 09/01/22 22:08 37.4 09/01/22 21:40 18 09/01/22 20:25 96 Nasal Cannula 2.00 09/01/22 20:09 37.4 101 18 157/71 (99) 94 Nasal Cannula 2.00 09/01/22 16:00 37.8 92 16 173/84 (113) 95 Nasal Cannula 2.00 09/01/22 13:04 Nasal Cannula 2.00 09/01/22 11:04 36.0 90 20 177/92 (120) 92 Nasal Cannula 2.00 09/01/22 09:00 92 Nasal Cannula 2.00 09/01/22 07:32 36.3 84 20 167/77 (107) 94 Nasal Cannula 2.00 I & O 09/02/22 07:00 Intake Total 2450 ml Output Total 1155 ml Balance 1295 ml LLE--incision clean and dry no calf tenderness neg René's s/p LTKA doing well DC home after PT today NIURKA ZALDIVAR MD Sep 02, 2022 07:04
[2022-09-02] MEDS ORDERED: morphine INJ 4 MG/ML 1 ML (VIAL/SYRINGE) IVP PRN (07:15)
[2022-09-02 07:45] VITALS: BP 151/74
[2022-09-02] MEDS: ASPIRIN E.C. 81 MG (ECOTRIN) TAB PO SCH (07:49)
[2022-09-02] MEDS: SENNA W/DOCUSATE (SENOKOT S) TABLET PO SCH (07:49)
[2022-09-02] MEDS: LOSARTAN 100 MG (COZAAR) TABLET PO SCH (07:49)
[2022-09-02] MEDS: FUROSEMIDE 40 MG (LASIX) TAB PO SCH (07:50)
[2022-09-02] MEDS: amLODIPine 5 MG (NORVASC) TAB PO SCH (07:50)
[2022-09-02] MEDS: TAMSULOSIN 0.4 MG (FLOMAX) CAP PO SCH (07:50)
[2022-09-02] MEDS: ENOXAPARIN INJECTION 30 MG/0.3 ML SYR SC SCH (07:50)
[2022-09-02] MEDS ORDERED: CARV12.53 PO (08:03)
--- NOTE | 2022-09-02 09:22 | Physical Therapy Daily Note ---
PT Daily Note-Current Subjective Patient lying supine in bed upon PT arrival, agreeable to treatment. Rates pain at 0/10 currently. Pain Section J - Health Conditions 1. Rarely or not at all 2. Occasionally 3. Frequently 4. Almost constantly 8. Unable to answer Pain Effect on Sleep: 2 Pain Interference with Therapy: 2 Pain Interference w/Day-to-Day: 2 Mental Status Patient Orientation: Person, Place, Time, Situation Attachments: [place] Transfers SCALE: Activities may be completed with or without assistive devices. 0-Zpkjqzawbw-wbhhjkm completes the activity by him/herself with no assistance from a helper. 5-Set-up or Clean-up Assistance-helper sets up or cleans up; patient completes activity. [place] assists only prior to or following the activity. 4-Supervision or Touching Assistance-helper provides verbal cues and/or touching/steadying and/or contact guard assistance as patient completes activity. Assistance may be provided throughout the activity or intermittently. 3-Partial/Moderate Assistance-helper does LESS THAN HALF the effort. [place] lifts, holds or supports trunk or limbs, but provides less than half the effort. 2-Substantial/Maximal Assistance-helper does MORE THAN HALF the effort. [place] lifts or holds trunk or limbs and provides more than half the effort. 7-Ifgldlwyv-ztwfxd does ALL the effort. Patient does none of the effort to complete the activity. Or, the assistance of 2 or more helpers is required for the patient to complete the activity. If activity was not attempted, code reason: 7-Patient Refused. 9-Not Applicable-not attempted and the patient did not perform the activity before the current illness, exacerbation or injury. 10-Not Attempted due to Environmental Limitations-(lack of equipment, weather restraints, etc.). 88-Not Attempted due to Medical Conditions or Safety Concerns. Roll Left & Right (QC): 6 Sit to Lying (QC): 6 Lying to Sitting/Side of Bed(Q: 6 Sit to Stand (QC): 4 Chair/Yls-lk-Wnntz Xfer(QC): 4 Weight Bearing Right Lower Extremity: Right Full Weight Bearing Left Lower Extremity: Left Weight Bearing/Tolerated Gait Training Does the Patient Walk?: Yes Distance: 400 feet Walk 10 feet (QC): 6 Walk 50 ft with 2 Turns(QC): 6 Walk 150 ft (QC): 4 Gait Persons Needed: 1 Gait Assistive Device: FWW Stair Training Stair Training: Handrails/: 2 handrails #of Steps: 2 1 Step (curb) (QC): 4 Stairs: Pattern: Step to Exercises Supine Ex: Ankle pumps, Quad Set, Glut sets, Heel Slides, Short Arc Quads, Straight leg raise, Hip abd/add Supine Reps: 20 Assessment Current Status: Fair Progress Patient tolerated treatment well. Performs LE therapeutic exercise as listed above. Patient performs all bed mobility with independence and transfers with SBA. Patient ambulates 400 feet total with FWW, with SBA and verbal cues. Patient ascends/descends 2 steps with bilateral handrails, with SBA. Patient in bed post treatment with all needs met, nursing notified, call light in hand. PT Forest Science Professor Goals Forest Science Professor Goals PT Forest Science Professor Goals Time Frame: Oct 01, 2022 Roll Left & Right (QC): 6 Sit to Lying (QC): 6 Lying-Sitting on Side/Bed(QC): 6 Sit to Stand (QC): 6 Chair/Fml-uy-Isspu Xfer(QC): 6 Toilet Transfer (QC): 6 Does the Patient Walk: Yes Walk 10 feet (QC): 6 Walk 50ft with 2 Turns (QC): 6 Walk 150 ft (QC): 6 1 Step (curb) (QC): 4 4 Steps (QC): 4 12 Steps (QC): 4 PT Plan Treatment/Plan Treatment Plan: Continue Plan of Care Treatment Plan: Bed Mobility, Education, Functional Activity Robbie, Functional Strength, Group Therapy, Gait, Safety, Therapeutic Exercise, Transfers Treatment Duration: Oct 01, 2022 Frequency: 11 times per week Estimated Hrs Per Day: .25 hour per day Patient and/or Family Agrees t: Yes Safety Risks/Education Patient Education: Gait Training, Transfer Techniques, Steps Teaching Recipient: Patient Teaching Methods: Demonstration, Discussion Response to Teaching: Verbalize Understanding, Return Demonstration Time Time In: 839 Time Out: 913 DATE: Sep 02, 2022 Total Billed Treatment Time: 34 Total Billed Treatment Visit, Gait, EX ELIAZAR CORNEJO PT Sep 02, 2022 09:22
--- NOTE | 2022-09-02 10:14 | Occupational Ther Daily Note ---
OT Current Status-Daily Note Subjective FINISHED BREAKFAST, AGREEABLE TO OT Mental Status/Objective PATIENT THOUGHT HE STILL HAD IV MEDS, OT EDUCATED PATIENT ON PUMP AND ORAL MEDICATION TO GO HOME ADL-Treatment Therapy Code Descriptions/Definitions Functional [place] Measure: 0=Not Assessed/NA 4=Minimal Assistance 1=Total Assistance 5=Supervision or Setup 2=Maximal Assistance 6=Modified [place] 3=Moderate Assistance 7=Complete IndependenceSCALE: Activities may be completed with or without assistive devices. 8-Agscymvowa-tjsmjgm completes the activity by him/herself with no assistance from a helper. 5-Set-up or Clean-up Assistance-helper sets up or cleans up; patient completes activity. [place] assists only prior to or following the activity. 4-Supervision or Touching Assistance-helper provides verbal cues and/or touching/steadying and/or contact guard assistance as patient completes activity. Assistance may be provided throughout the activity or intermittently. 3-Partial/Moderate Assistance-helper does LESS THAN HALF the effort. [place] lifts, holds or supports trunk or limbs, but provides less than half the effort. 2-Substantial/Maximal Assistance-helper does MORE THAN HALF the effort. [place] lifts or holds trunk or limbs and provides more than half the effort. 5-Bdqbsdcxk-byexjx does ALL the effort. Patient does none of the effort to complete the activity. Or, the assistance of 2 or more helpers is required for the patient to complete the activity. If activity was not attempted, code reason: 7-Patient Refused. 9-Not Applicable-not attempted and the patient did not perform the activity before the current illness, exacerbation or injury. 10-Not Attempted due to Environmental Limitations-(lack of equipment, weather restraints, etc.). 88-Not Attempted due to Medical Conditions or Safety Concerns. Eating (QC): 6 Oral Hygiene (QC): 5 Shower/Bathe Self (QC): 7 (DECLINED, GOING HOME TODAY) Upper Body Dressing (QC): 6 Lower Body Dressing (QC): 5 On/Off Footwear: 5 Toileting Hygiene (QC): 5 Toilet Transfer (QC): 5 Education OT Patient Education: Correct positioning, Energy conservation, Home exercise program, Modified ADL techniques, Progress toward Goal/Update tx plan, Purpose of tx/functional activities, Reviewed precautions, Rehab process, Safety issues, Transfer techniques, Use of adapted equipment Teaching Recipient: Patient Teaching Methods: Demonstration, Discussion Response to Teaching: Reinforcement Needed OT Detention Goals Detention Goals Oral Hygiene (QC): 6 Toileting Hygiene (QC): 6 Shower/Bathe Self (QC): 6 Upper Body Dressing (QC): 6 Lower Body Dressing (QC): 6 On/Off Footwear (QC): 6 1=Demonstrate adherence to instructed precautions during ADL tasks. 2=Patient will verbalize/demonstrate understanding of assistive devices/modifications for ADL. 3=Patient will improve strength/tolerance for activity to enable patient to perform ADL's. OT Education/Plan Discharge Recommendations Plan/Recommendations: Continue POC (WHILE IN HOSPITAL) Therapy Discharge Recommendati: Home & Family (HOME HEALTH) Equpiment Recommendations-D/C: Diesel Retrofit Installer (PROVIDED), Sock Aide (REPORTS MAY HAVE ONE HOME.) Treatment Plan/Plan of Care Treatment,Training & Education: Yes Patient would benefit from OT for education, treatment and training to promote independence in ADL's, mobility, safety and/or upper extremity function for ADL's. Plan of Care: ADL Retraining, Functional Mobility, Group Exercise/Act as Ind, UE Funct Exercise/Act Treatment Duration: Sep 03, 2022 Frequency: 3 times per week (3-5 times/ week) Rehab Potential: Good PATIENT REQUEST TO RETURN TO BED, ALL NEEDS MET Time Start Time: 07:40 Stop Time: 08:13 DATE: Sep 02, 2022 Total Time Billed (hr/min): 23 Billed Treatment Time ADL 2 FAYE MEZA OT Sep 02, 2022 10:14
[2022-09-02] MEDS ORDERED: NON-FORMULARY MEDICATION 1 EA EA (Linaclotide (Linzess) 72 MCG) PO SCH ×2 (10:15→14:00)
--- NOTE | 2022-09-02 14:37 | Progress Note - Hospitalist ---
Subjective HPI/CC On Admission Date Seen by Provider: Sep 02, 2022 Time Seen by Provider: 09:45 Arvind Valencia is an 81 year old male with PMH HTN, AFib, BPH, OA, who presented for a scheduled TKA. He underwent his surgery with Dr. Everett this morning. He just arrived to the floor. His is in the room with him. He has no complain ts. He denies pain. He denies shortness of breath. He denies nausea. We discussed the plan for his pain control, bowel regimen, incentive spriometer, and physical therapy. Subjective/Events-last exam He is feeling well. His pain is well controlled. He has been eating and drinkin g. He has been up and walking. He feels ready to go home. Objective Exam Vital Signs Vital Signs Date Time Temp Pulse Resp B/P (MAP) Pulse Ox O2 Delivery O2 Flow Rate FiO2 09/02/22 09:57 09/02/22 08:08 Room Air 09/02/22 07:45 36.8 93 20 91 09/02/22 03:05 2.00 2.00 Capillary Refill : Less Than 3 Seconds General Appearance: No Apparent Distress, Obese Respiratory: No Accessory Muscle Use, No Respiratory Distress Gastrointestinal: No Distended Extremity: Normal Inspection, No Pedal Edema; No Inflammation Neurologic/Psychiatric: Alert, Normal Mood/Affect Skin: Normal Color Results/Procedures Lab Laboratory Tests 09/02/22 05:18 Patient resulted labs reviewed. Assessment/Plan Assessment and Plan Assess & Plan/Chief Complaint s/p TKA OA Ortho primary, Dr. Everett Pain regimen Bowel regimen Incentive spirometry PT/OT Planning for discharge home today HTN BPH AFib Obesity Continue home meds Given prescription for increased dose Coreg due to persistent hypertension Diagnosis/Problems Diagnosis/Problems (1) Osteoarthritis of left knee Status: Acute Qualifiers: Osteoarthritis type: primary Qualified Codes: M17.12 - Unilateral primary osteoarthritis, left knee (2) S/P total knee arthroplasty Status: Acute Qualifiers: Laterality: left Qualified Codes: Z96.652 - Presence of left artificial knee joint (3) HTN (hypertension) Status: Acute Qualifiers: Hypertension type: primary hypertension Qualified Codes: I10 - Essential (primary) hypertension (4) BPH (benign prostatic hyperplasia) Status: Chronic (5) Afib Status: Chronic (6) Obesity Status: Chronic GLENDY SLOAN MD Sep 02, 2022 14:37
== END 2022-09-02 10:02 | disposition home health service (06) ==
LOC: SDC 07:50 → EDSTATUS 10:05 → 4TH 11:45 → SURG 11:45 → 4TH 11:45 → SDC 09-02 10:02 → UNDODISIN 09-02 10:02
PROVIDERS: ATTEND Orthopaedic Surgery
DX: M17.12 Unilateral primary osteoarthritis, left knee (principal); E66.9 Obesity, unspecified; I10 Essential (primary) hypertension; N40.0 Benign prostatic hyperplasia without lower urinary tract symptoms; I48.91 Unspecified atrial fibrillation; Z68.31 Body mass index [BMI] 31.0-31.9, adult; Z79.899 Other long term (current) drug therapy
CPT/HCPCS: 27447; 73560; 85014 ×2; 85018 ×2; 86850; 86900; 86901; 94664; 97110 ×2; 97116 ×2; 97162; 97166; 97535; C1713 ×2; C1776 ×4; 36415

== ENCOUNTER 2022-09-07 05:38 | Observation (INO) | payer MEDICARE ==
[~2022-09-07] VITALS: Ht 188 cm; Wt 127.0 kg
[2022-09-07] VITALS (7 sets, daily range): BP systolic 130–156; BP diastolic 62–76
[~2022-09-07 05:38] MED LIST changes: +CARV12.53 PO; -NALOXONE 0.4 MG/ML 1 ML (NARCAN) VIAL IV PRN; -ONDANSETRON 4 MG/2 ML (SDV) Z0FRAN IVP PRN; +POTA10TA PO; -diphenhydrAMINE 50 MG/ML INJ (BENADRYL) IVP PRN
[2022-09-07] MEDS ORDERED: LIDOCAINE UROJET 2% GEL 10 ML PKG TOP ONE (05:45)
--- NOTE | 2022-09-07 06:10 | ED Abdominal Pain ---
General Chief Complaint: Abdominal/GI Problems Stated Complaint: Abdominal pain. unable to have a bowel movement Source of Information: Patient, EMS Exam Limitations: No Limitations History of Present Illness Date Seen by Provider: Sep 07, 2022 Time Seen by Provider: 06:02 Initial Comments 82-year-old male presents to the emergency department today for abdominal pain, distention. He states he is not passing gas has been able have a bowel movement since 08/31 after he had a left total knee replacement. No fevers or chills. He has nausea without vomiting. All other systems reviewed and negative except documented per HPI. Voice recognition software was used to help create this chart Allergies and Home Medications Allergies Coded Allergies: No Known Drug Allergies (Verified , 08/31/22) Patient Home Medication List Home Medication List Reviewed: Yes Amlodipine Besylate (Amlodipine Besylate) 5 Mg Tablet, 5 MG PO DAILY, (Reported) Entered as Reported by: KENNETH CHAVEZ on 05/07/181351 Last Action: Reviewed Apixaban (Eliquis) 5 Mg Tablet, 5 MG PO BID, (Reported) Entered as Reported by: KENNETH CHAVEZ on 05/07/181351 Last Action: Reviewed Carvedilol (Carvedilol) 6.25 Mg Tablet, 6.25 MG PO BID, (Reported) Entered as Reported by: LEONILA BRADLEY on 09/07/22 160 Last Action: Reviewed Furosemide (Furosemide) 40 Mg Tablet, 40 MG PO DAILY, (Reported) Entered as Reported by: KENNETH CHAVEZ on 05/07/181351 Last Action: Reviewed Irbesartan (Irbesartan) 300 Mg Tablet, 300 MG PO DAILY, (Reported) Entered as Reported by: KENNETH CHAVEZ on 05/07/181351 Last Action: Reviewed Linaclotide (Linzess) 72 Mcg Capsule, 72 MCG PO DAILY, (Reported) Entered as Reported by: Cara Tam on 08/23/22 135 Last Action: Reviewed Potassium Chloride (K-Tab ER) 10 Meq Tablet.er, 10 MEQ PO DAILY, (Reported) Entered as Reported by: LEONILA BRADLEY on 08/31/22 4229 Last Action: Reviewed Tamsulosin HCl (Flomax) 0.4 Mg Cap, 0.4 MG PO DAILY, (Reported) Entered as Reported by: Cara Tam on 08/23/22 1354 Last Action: Reviewed Discontinued Medications Carvedilol (Carvedilol) 6.25 Mg Tablet, 6.25 MG PO BID, (Reported) Discontinued Reason: Prescription changed Entered as Reported by: KENNETH CHAVEZ on 05/07/18 1352 Carvedilol (Carvedilol) 12.5 Mg Tablet, 12.5 MG PO BID Discontinued Reason: No Longer Taking Prescribed by: GLENDY SLOAN on 09/02/22 0803 Last Action: Discontinued Review of Systems Review of Systems Constitutional: see HPI Past Oeeeoll-Tejqkk-Egagym Hx Patient Social History Tobacco Use?: No Substance use?: No Alcohol Use?: No Immunizations Up To Date Tetanus Booster (TDap): Less than 5yrs Influenza Vaccine Up-to-Date: Yes; Up-to-Date First/Initial COVID19 Vaccinat: 07/27 Second COVID19 Vaccination Dash: 08/24 Third COVID19 Vaccination Date: 02/24 COVID19 Vaccine English Division Chair: STATES HE HAS HAD 3 VACCINES Seasonal Allergies Seasonal Allergies: No Past Medical History Surgery/Hospitalization HX: HTN Surgeries: Yes (ORTHOPEDIC SCOPES) Joint Replacement, Orthopedic Respiratory: Yes Sleep Apnea Currently Using CPAP: Yes (AT HOME, AT NIGHT) Currently Using BIPAP: No Cardiac: Yes (CHRONIC SYSTOLIC HEART FAILURE) Atrial Fibrillation, High Cholesterol, Hypertension, Valvular Heart Disease Neurological: No Reproductive Disorders: No Genitourinary: No Gastrointestinal: No Musculoskeletal: No Arthritis Endocrine: No HEENT: Yes Loss of Vision: Denies Hearing Impairment: Bilateral Hearing Aide Cancer: No Psychosocial: No Integumentary: No Blood Disorders: No Adverse Reaction/Blood Tranf: No Family Medical History Reviewed Nursing Family Hx Cardiovascular disease 19 FATHER Dementia G8 SISTER Hypertension 19 FATHER Myocardial infarction 19 FATHER Respiratory disorder 19 MOTHER Tuberculosis 19 MOTHER No Family History of: AIDS Alcoholism Alzheimer's disease Arthritis Asthma Cancer of mouth Cataracts Colon cancer Completed stroke Diabetes mellitus Drug abuse Glaucoma Kidney disease Parkinson's disease Prostate cancer Psychosocial problem Seizure disorder No Pertinent Family Hx Physical Exam Vital Signs Vital Signs - First Documented 09/07/22 05:40 Temp 35.8 Pulse 98 Resp 20 B/P (MAP) 156/91 (112) Pulse Ox 95 O2 Delivery Room Air Capillary Refill : Height/Weight/BMI Height: 6'1.00" Weight: 240lbs. 0.0oz. [id number]; 31.44 BMI Method:Stated General Appearance: WD/WN, no apparent distress HEENT: normal ENT inspection, pharynx normal Neck: non-tender, supple Respiratory: chest non-tender, lungs clear, normal breath sounds, no respiratory distress, no accessory muscle use Cardiovascular: regular rate, rhythm, no murmur Gastrointestinal: normal bowel sounds, other (Distended, firm. Tender to palpation diffusely. Creased bowel sounds throughout.) Extremities: normal range of motion, normal inspection, no calf tenderness Neurologic/Psychiatric: alert, oriented x 3 Skin: normal color, warm/dry Progress/Results/Core Measures Results/Orders Lab Results Laboratory Tests Test 09/07/22 05:56 Range/Units White Blood Count 8.5 4.3-11.0 10^3/uL Red Blood Count 3.59 L 4.30-5.52 10^6/uL Hemoglobin 11.7 L 13.3-17.7 g/dL Hematocrit 35 L 40-54 % Mean Corpuscular Volume 97 80-99 fL Mean Corpuscular Hemoglobin 33 25-34 pg Mean Corpuscular Hemoglobin Concent 34 32-36 g/dL Red Cell Distribution Width 13.2 10.0-14.5 % Platelet Count 298 130-400 10^3/uL Mean Platelet Volume 9.4 9.0-12.2 fL Immature Granulocyte % (Auto) 1 % Neutrophils (%) (Auto) 77 H 42-75 % Lymphocytes (%) (Auto) 9 L 12-44 % Monocytes (%) (Auto) 13 H 0-12 % Eosinophils (%) (Auto) 0 0-10 % Basophils (%) (Auto) 1 0-10 % Neutrophils # (Auto) 6.5 1.8-7.8 10^3/uL Lymphocytes # (Auto) 0.7 L 1.0-4.0 10^3/uL Monocytes # (Auto) 1.1 H 0.0-1.0 10^3/uL Eosinophils # (Auto) 0.0 0.0-0.3 10^3/uL Basophils # (Auto) 0.0 0.0-0.1 10^3/uL Immature Granulocyte # (Auto) 0.1 0.0-0.1 10^3/uL Neutrophils % (Manual) 82 % Lymphocytes % (Manual) 8 % Monocytes % (Manual) 10 % Blood Morphology Comment NORMAL Sodium Level 137 135-145 MMOL/L Potassium Level 4.0 3.6-5.0 MMOL/L Chloride Level 104 98-107 MMOL/L Carbon Dioxide Level 22 21-32 MMOL/L Anion Gap 11 5-14 MMOL/L Blood Urea Nitrogen 23 H 7-18 MG/DL Creatinine 0.72 0.60-1.30 MG/DL Estimat Glomerular Filtration Rate 90 BUN/Creatinine Ratio 32 Glucose Level 124 H 70-105 MG/DL Calcium Level 8.7 8.5-10.1 MG/DL Corrected Calcium 9.1 8.5-10.1 MG/DL Total Bilirubin 2.6 H 0.1-1.0 MG/DL Aspartate Amino Transf (AST/SGOT) 26 5-34 U/L Alanine Aminotransferase (ALT/SGPT) 23 0-55 U/L Alkaline Phosphatase 65 40-136 U/L Total Protein 6.1 L 6.4-8.2 GM/DL Albumin 3.5 3.2-4.5 GM/DL My Orders Orders - ALANA VARGHESE DO Comprehensive Metabolic Panel (09/07/22 06:06) Cbc And Manual Diff (09/07/22 06:06) Ed Admission (Communication) (09/07/22 06:47) Vital Signs/I&O 09/07/22 09/07/22 05:40 07:37 Temp 35.8 35.8 Pulse 98 90 Resp 20 18 B/P (MAP) 156/91 (112) 141/91 Pulse Ox 95 97 O2 Delivery Room Air Room Air Departure Communication (Admissions) 0640: Spoke to Dr Lutz, requests NPO, pain/nausea meds and admit to medicine doctor due to comorbidities. 0643: Attempted to call Dr Reddign, left message. 0644: Dr Redding informed me that Dr Truong is on until 0700. 0645: Spoke to Dr Truong who accepts admission Patient remained hemodynamically stable through the emergency department to stay. He denies any nausea or vomiting, no indication for NG tube at this time. We will give him IV fluids, pain medication and nausea medicine as bridging orders to the floor. Dr Truong accepts admission. I spoke with Dr. Lutz and he agrees to consult. No evidence for perforation on CT scan. We are pending the official read. Impression Primary Impression: Large bowel obstruction Disposition: ADMITTED INPATIENT Condition: Stable Admissions Decision to Admit Reason: Admit from ER (General) Departure-Patient Inst. Referrals: ELIAZAR BEATTY MD (PCP/Family) Primary Care Physician ALANA VARGHESE DO Sep 07, 2022 06:09
[2022-09-07 06:16] LABS: ALBUMIN 3.5 GM/DL (3.2-4.5)
[2022-09-07 06:17] LABS: CALCIUM 8.7 MG/DL (8.5-10.1)
[2022-09-07 06:18] LABS: TOTAL PROTEIN 6.1 GM/DL (6.4-8.2)
[2022-09-07 06:20] LABS: BASOPHILS % (AUTO) 1 % (0-10); BILIRUBIN,TOTAL 2.6 MG/DL (0.1-1.0); EOSINOPHILS % (AUTO) 0 % (0-10); HEMATOCRIT 35 % (40-54); HEMOGLOBIN 11.7 g/dL (13.3-17.7); LYMPHOCYTES # (AUTO) 0.7 10^3/uL (1.0-4.0); LYMPHOCYTES % (AUTO) 9 % (12-44); MEAN CORPUSCULAR HEMOGLOBIN 33 pg (25-34); MEAN CORPUSCULAR HGB CONC 34 g/dL (32-36); MEAN CORPUSCULAR VOLUME 97 fL (80-99); MEAN PLATELET VOLUME 9.4 fL (9.0-12.2); MONOCYTES # (AUTO) 1.1 10^3/uL (0.0-1.0); MONOCYTES % (AUTO) 13 % (0-12); NEUTROPHILS # (AUTO) 6.5 10^3/uL (1.8-7.8); NEUTROPHILS % (AUTO) 77 % (42-75); PLATELET COUNT 298 10^3/uL (130-400); WHITE BLOOD COUNT 8.5 10^3/uL (4.3-11.0)
[2022-09-07 06:22] LABS: CREATININE SERUM 0.72 MG/DL (0.60-1.30)
[2022-09-07 06:40] LABS: LYMPHOCYTES % (MANUAL) 8 %; MONOCYTES % (MANUAL) 10 %; NEUTROPHILS % (MANUAL) 82 %; RBC MORPH NORMAL
--- NOTE | 2022-09-07 06:50 | Diagnostic Imaging Report ---
PROCEDURE: CT abdomen and pelvis without contrast. TECHNIQUE: Multiple contiguous axial images were obtained through the abdomen and pelvis without the use of intravenous contrast. Auto Exposure Controls were utilized during the CT exam to meet ALARA standards for radiation dose reduction. INDICATION: Constipation, abdominal pain, unable to urinate. Comparison none FINDINGS: Small right pleural effusion associated atelectasis of the right lung base. A calcified granuloma in the left lower lobe. Trace left pleural effusion. Fluid and gaseous distention of the colon within air-fluid level seen throughout the ascending and transverse colon. The liver, spleen, adrenal glands, and pancreas are normal. The urinary bladder is normal. The prostate is enlarged. The osseous structures demonstrate no lytic or sclerotic bone lesions. Chronic bilateral pars defects of L4 with mild anterolisthesis of L4 and L5. Age indeterminant compression fracture of T12 with 25% height loss. IMPRESSION: Diffuse gaseous distention of the ascending and transverse colon with an air-fluid level. Findings can be seen with large bowel obstruction or enterocolitis. No free intraperitoneal air, abscess. Small right and trace left pleural effusion. Atelectasis in the right lung base. Age indeterminate compression fracture of T12 with 25% height loss. Enlarged prostate. Dictated by: Dictated on workstation # [id number]
[2022-09-07] MEDS ORDERED: ONDANSETRON 4 MG/2 ML (SDV) Z0FRAN IV PRN (08:15)
[2022-09-07] MEDS ORDERED: fentaNYL INJ 100 MCG/2 ML AMP IV PRN (08:15)
[2022-09-07] MEDS: NS IV 1000 ML 1,000 ML IV SCH ×2 (10:08→21:30)
--- NOTE | 2022-09-07 10:21 | History & Physical-Hospitalist ---
History of Present Illness HPI/Chief Complaint Pt is an 82-year-old male with past medical history of CHF, atrial fibrillation, irritable bowel syndrome, recent knee replacement who presented to the emergency department due to abdominal pain. He states he has had abdominal pain going on even since before his knee surgery a couple of weeks ago and it has continued to worsen. He states his last bowel movement was 10 to 12 days ago and over the past 2 days his pain has been more and more severe. In the emergency room he had a CT of his abdomen done which revealed a large bowel obstruction. He is admitted for further management and surgical evaluation. Reports feeling slightly better than when he came in now that he has had some pain medicine. He is hopeful for quick resolution to this. Source: patient Date Seen 09/07/22 Time Seen by a Provider: 10:21 Attending Physician Ozzy Meraz MD PCP Admitting Physician: Solo Truong MD Attending Physician: Solo Truong MD Referring Physician Date of Admission Sep 07, 2022 at 07:43 Home Medications & Allergies Home Medications Reviewed patient Home Medication Reconciliation performed by pharmacy medication reconciliations trim technician and/or nursing. Patients Allergies have been reviewed. Allergies Allergies Coded Allergies No Known Drug Allergies (Verified08/31/22) Past Vobtagb-Yrmlam-Jxusol Hx Patient Social History Tobacco Use?: No Smoking Status: Never a Smoker Smokeless Tobacco Frequency: Never a User Use of E-Cig and/or Vaping Oren: Never a User Substance use?: No Alcohol Use?: No Pt feels they are or have been: No Immunizations Up To Date Date of Influenza Vaccine: Mar 05, 2021 First/Initial COVID19 Vaccinat: 07/27 Second COVID19 Vaccination Dash: 08/24 Hepatitis A: No Hepatitis B: No Date of Pneumonia Vaccine: Jun 07, 2021 Seasonal Allergies Seasonal Allergies: No Current Status Advance Directives: No Communicates: Verbally Primary Language: Botswanan Preferred Spoken Language: B[place]an Is interpretation needed?: No Sensory deficits: Vision impairment, Hearing impairment Implanted or Applied Medical D: None Past Medical History Surgeries: Joint Replacement, Orthopedic Sleep Apnea Currently Using CPAP: Yes (AT HOME, AT NIGHT) Currently Using BIPAP: No Atrial Fibrillation, High Cholesterol, Hypertension, Valvular Heart Disease Arthritis Loss of Vision: Denies Hearing Impairment: Bilateral Hearing Aide Blood Disorders: No Adverse Reaction/Blood Tranf: No Family Medical History Reviewed Nursing Family Hx Cardiovascular disease 19 FATHER Dementia G8 SISTER Hypertension 19 FATHER Myocardial infarction 19 FATHER Respiratory disorder 19 MOTHER Tuberculosis 19 MOTHER No Family History of: AIDS Alcoholism Alzheimer's disease Arthritis Asthma Cancer of mouth Cataracts Colon cancer Completed stroke Diabetes mellitus Drug abuse Glaucoma Kidney disease Parkinson's disease Prostate cancer Psychosocial problem Seizure disorder No Pertinent Family Hx Review of Systems Constitutional: see HPI Physical Exam Physical Exam Vital Signs Vital Signs - First Documented 09/07/22 09/07/22 05:40 13:15 Temp 35.8 Pulse 98 Resp 20 B/P (MAP) 156/91 (112) Pulse Ox 95 O2 Delivery Room Air O2 Flow Rate 10.00 Capillary Refill : Less Than 3 Seconds Height, Weight, BMI Height: 6'1.00" Weight: 240lbs. 0.0oz. 108.156482ge; 35.93 BMI Method:Stated General Appearance: No Apparent Distress, WD/WN Respiratory: Lungs Clear, No Accessory Muscle Use, No Respiratory Distress Cardiovascular: Regular Rate, Rhythm, No Murmur Gastrointestinal: Abnormal Bowel Sounds (absent), Distended; No Guarding, No Rebound; Tenderness (diffuse) Extremity: Pedal Edema, Swelling (2+ bilateral lower extremity) Neurologic/Psychiatric: Alert, Oriented x3 Results Results/Procedures Labs Laboratory Tests 09/07/22 05:56 Patient resulted labs reviewed. Imaging: Reviewed Imaging Report Imaging [facility], [place] NAME: BUBBA BLAND [facility] REC#: [id number] PT STATUS: REG ER : 1940 PHYSICIAN: JONI STARKEY DO ADMIT DATE: 09/07/22/ER Signed Date of Exam:09/07/22 CT ABDOMEN/PELVIS WO PROCEDURE: CT abdomen and pelvis without contrast. TECHNIQUE: Multiple contiguous axial images were obtained through the abdomen and pelvis without the use of intravenous contrast. Auto Exposure Controls were utilized during the CT exam to meet ALARA standards for radiation dose reduction. INDICATION: Constipation, abdominal pain, unable to urinate. Comparison none FINDINGS: Small right pleural effusion associated atelectasis of the right lung base. A calcified granuloma in the left lower lobe. Trace left pleural effusion. Fluid and gaseous distention of the colon within air-fluid level seen throughout the ascending and transverse colon. The liver, spleen, adrenal glands, and pancreas are normal. The urinary bladder is normal. The prostate is enlarged. The osseous structures demonstrate no lytic or sclerotic bone lesions. Chronic bilateral pars defects of L4 with mild anterolisthesis of L4 and L5. Age indeterminant compression fracture of T12 with 25% height loss. IMPRESSION: Diffuse gaseous distention of the ascending and transverse colon with an air-fluid level. Findings can be seen with large bowel obstruction or enterocolitis. No free intraperitoneal air, abscess. Small right and trace left pleural effusion. Atelectasis in the right lung base. Age indeterminate compression fracture of T12 with 25% height loss. Enlarged prostate. Dictated by: Dictated on workstation # [id number] Dict: 09/07/2242 Trans: 09/07/2248 [facility] [place] [id number] Interpreted by: JOSEPHINE DEL TORO DO Electronically signed by: JOSEPHINE DEL TORO DO 09/07/2248 Assessment/Plan Admission Diagnosis Large bowel obstruction Admission Status: Observation Assessment and Plan Large bowel obstruction IBS Surgery consulted, appreciate recs NPO Fentanyl for pain Plan for decompressive colonoscopy tomorrow CHF pAF HTN Lower extremity edema significant Reviewed previous echo (had EF of 25% but recovered to 45% in 2016) Follows with Dr Hernandez, spoke with him and he will see in consultation Recent knew replacement I updated Dr Everett REsume PT when feeling better DVT ppx: Home KRYSTEN Kaye MD Sep 07, 2022 10:21
--- NOTE | 2022-09-07 10:52 | Progress Note-Pre Operative ---
Pre-Operative Progress Note Date of Available H&P: Sep 07, 2022 Date H&P Reviewed: Sep 07, 2022 Time H&P Reviewed: 10:30 History & Physical: No changes noted Pre-Operative Diagnosis: large bowel obstruction v. ogilvies. KAITLIN WAGGONER MD Sep 07, 2022 10:52
[2022-09-07] MEDS ORDERED: LACTATED RINGERS 1,000 ML IV ONE (12:13)
[2022-09-07] MEDS ORDERED: LACTATED RINGERS 1,000 ML IV STA (12:17)
[2022-09-07] MEDS ORDERED: LIDOCAINE JELLY 2% 6 ML SYRINGE MM PRN (12:30)
--- NOTE | 2022-09-07 12:30 | CONSULTATION REPORT ---
DATE OF SERVICE: 09/07/2022 ATTENDING PRIMARY CARE PHYSICIAN: Dr. Solo Truong. HISTORY OF PRESENT ILLNESS: The patient is an 82-year-old male who presented to the Emergency Department this morning with abdominal distention and pain. He states that he has not had a bowel movement for approximately 6 days after having a total knee replacement. A CT scan was performed, which did show significantly distended colon. Based on his history of previous surgery as well as likely being on pain medications and being inactive, this appears to be more consistent with an [place] syndrome or colonic pseudoobstruction however, but also we cannot rule out a neoplastic process. We will proceed with a diagnostic as well as therapeutic decompressive colonoscopy. PAST MEDICAL HISTORY: Hypertension, sleep apnea, atrial fibrillation, hypercholesterolemia. PAST SURGICAL HISTORY: Left total knee arthroplasty 08/31/2022, previous knee arthroscopies. ALLERGIES: NO KNOWN DRUG ALLERGIES. MEDICATIONS: Amlodipine 5 mg daily, Eliquis 5 mg b.i.d., carvedilol 12.5 mg b.i.d., furosemide 40 mg daily, irbesartan 300 mg daily, linaclotide 75 mcg daily, potassium 10 mEq daily, tamsulosin 0.4 mg daily, carvedilol 6.25 mg b.i.d., potassium 10 mEq daily. SOCIAL HISTORY: Negative smoke, negative alcohol. FAMILY HISTORY: Noncontributory. VITAL SIGNS: Temperature 36.5, blood pressure 154/76, pulse 105, respirations 20, pulse ox 96% on room air. REVIEW OF SYSTEMS: A well-nourished male who is currently uncomfortable due to the abdominal distention. He is belching; however, has some mild nausea; however, no vomiting. He states that he has not had a bowel movement or pass any flatus since his surgery on 08/31/2022. No fever or chills. No recent inadvertent weight loss. All other review of systems negative. PHYSICAL EXAMINATION: CHEST: Few scattered rales and rhonchi bilaterally. HEART: Regular. No murmurs. EXTREMITIES: No lower extremity edema. Negative Homans sign. HEENT: No scleral icterus. No cervical lymphadenopathy. ABDOMEN: Distended with 4-quadrant tympany. Mild discomfort. No peritoneal signs. No hernias. SKIN: Warm, dry. LABORATORY DATA: WBC 8.5, hemoglobin 11.7, hematocrit 35, platelets 298, BUN 22, creatinine 0.72. ASSESSMENT AND PLAN: An 82-year-old male with recent left total knee arthroplasty with either [place] syndrome or colonic pseudoobstruction versus a mechanical obstruction due to a neoplastic process. We will proceed with a diagnostic as well as therapeutic decompressive colonoscopy. Job ID: [id number] DocumentID: [id number] Dictated Date: 09/07/2022 12:01:17 Human Service Technician Date: 09/07/2022 12:28:00 Dictated By: KAITLIN WAGGONER MD
[2022-09-07] MEDS ORDERED: PROPOFOL INJECTION 50 ML IV ONE (12:44)
[2022-09-07] MEDS ORDERED: LIDOCAINE JELLY 2% 6 ML SYRINGE ONE (12:44)
[2022-09-07] MEDS ORDERED: PHENYLEPHRINE 100 MCG/ML 10 ML (ANESTHESIA) SYR ONE (13:17)
--- NOTE | 2022-09-07 13:30 | Progress Note-Post Operative ---
Post-Operative Progess Note Surgeon (s)/Crm Solution Architect (s) Surgeon KAITLIN WAGGONER MD Crm Solution Architect: none Pre-Operative Diagnosis large bowel obstruction v. ogilvies. 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 Procedure & Operative Findings Date of Procedure 09/07/22 Procedure Performed/Findings decompressive colonoscopy Anesthesia Type mac Estimated Blood Loss Estimated blood loss (mL): minimal Specimens/Packing Specimens Removed none KAITLIN WAGGONER MD Sep 07, 2022 13:30
--- NOTE | 2022-09-07 13:32 | Anesthesia-General Post-Op ---
MAC Patient Condition Mental Status/LOC: Same as Preop Cardiovascular: Satisfactory Nausea/Vomiting: Absent Respiratory: Satisfactory Pain: Controlled Complications: Absent Post Op Complications Complications None Follow Up Care/Instructions Patient Instructions None needed. Anesthesiology Discharge Order Discharge Order Patient is doing well, no complaints, stable vital signs, no apparent adverse anesthesia problems. No complications reported per nursing. ESTEFANY BENITEZ CRNA Sep 07, 2022 13:32
[2022-09-07] MEDS: METOCLOPRAMIDE INJ 10 MG/2 ML (REGLAN) IVP SCH ×2 (13:51→21:30)
[2022-09-07] MEDS ORDERED: CARV6.252 PO (16:09)
[2022-09-07] MEDS ORDERED: TAMSULOSIN 0.4 MG (FLOMAX) CAP PO SCH (18:00)
--- NOTE | 2022-09-07 19:39 | OPERATIVE REPORT ---
DATE OF SERVICE: 09/07/2022 ATTENDING PRIMARY CARE PHYSICIAN: Dr. Ozzy Meraz. PREOPERATIVE DIAGNOSIS: Large bowel obstruction versus [place]'s syndrome. POSTOPERATIVE DIAGNOSIS: [place]'s syndrome or colonic pseudoobstruction with a significant amount of liquid stools and air throughout the colon. PROCEDURE: Decompressive colonoscopy. SURGEON: Kaitlin Waggoner MD. ANESTHESIA: Monitored anesthesia care. ESTIMATED BLOOD LOSS: Minimal. FINDINGS: Mild chronic stage II external and internal hemorrhoids. Enlarged prostate; however, no nodules. A significant amount of liquid stools and gas throughout the entirety of the colon and rectum. DISPOSITION: The patient tolerated the procedure well. INDICATIONS: The patient is an 82-year-old male, who presented to the emergency department with crampy abdominal pain and abdominal distention. He states that he has not had a bowel movement since a total knee arthroplasty [address] scan was performed, which showed a significant amount of colonic distention and air fluid levels with reading with radiologist interpretation being a large bowel obstruction. DESCRIPTION OF PROCEDURE: The patient was brought to the endoscopy suite and laid in the left lateral decubitus position. After adequate IV pain and sedative medications and monitored anesthesia care, a digital rectal examination was performed. Chronic stage II external and internal hemorrhoids were identified, which were not actively edematous, nor inflamed and no bleeding. There was slightly higher sphincter tone; however, upon digital rectal examination, there was a significant amount of loose stools as well as gas just released. Prostate gland was hypertrophic; however, there were no palpable nodules. The endoscope was then intubated into the anus, rectum gently insufflated. The endoscope was then advanced through the valves of [place] where there was a significant amount of liquid stools and air, which were suctioned out. We then proceeded to the remainder of the sigmoid, descending colon, transverse colon to the cecum. Again, no polyps or any neoplastic processes were identified, just significant amounts of liquid stools and air consistent with the [place]'s syndrome. While withdrawing the endoscope, most of the residual liquid stools as well as air were suctioned out. His abdomen was soft after the procedure. The patient tolerated the procedure well. We will recommend ambulation as much as possible and physical and occupational therapy should be consulted. The most minimal amounts of narcotic pain medication also should be administered. He should ambulate as much as possible and sit in a chair and out of bed for as long as possible to prevent persistent or reoccurrence of the [place]'s syndrome. Job ID: [id number] DocumentID: [id number] Dictated Date: 09/07/2022 13:24:58 Writer Technical Publications Date: 09/07/2022 19:37:00 Dictated By: KAITLIN WAGGONER MD
[2022-09-07] MEDS: APIXABAN 5 MG (ELIQUIS) TABLET PO SCH (21:30)
[2022-09-08 03:20] VITALS: BP 141/67
[2022-09-08] MEDS: METOCLOPRAMIDE INJ 10 MG/2 ML (REGLAN) IVP SCH ×2 (06:06→13:26)
[2022-09-08 08:07] VITALS: BP 161/76
--- NOTE | 2022-09-08 08:18 | Consultation-Cardiology ---
HPI-Cardiology Cardiology Consultation Date of Consultation 09/08/22 Date of Admission Time Seen by Provider: 08:20 Indication: peripheral edema HPI Patient is an 82 y/o male with history of CAD, SSS/permanent atrial fibrillation, recent left knee replacement, IBS and chronic peripheral edema. Was admitted d/t large bowel obstruction. Underwent decompressive colonoscopy. Patient reports he had BM this morning and is feeing much better. Denies any chest pain, dyspnea, dizziness or lightheadedness. Patient has chronic peripheral edema. Reports left leg has had slight increase in swelling since knee replacement several weeks ago. Home Medications & Allergies Allergies: Coded Allergies: No Known Drug Allergies (Verified , 08/31/22) Home Medication List Reviewed: Yes RJB-Vibbte-Llgetj Hx Patient Social History Marital Status: Employed/Student: retired Smoking Status: Never a Smoker 2nd Hand Smoke Exposure: No Recent Hopitalizations: No Have you traveled recently?: No Alcohol Use?: No Immunizations Up To Date Tetanus Booster (TDap): Less than 5yrs Date of Pneumonia Vaccine: Jun 07, 2021 Date of Influenza Vaccine: Mar 05, 2021 Past Medical History CAD, SSS/afib, chronic peripheral edema Family Medical History Significant Family History: No Pertinent Family Hx Family History: Cardiovascular disease 19 FATHER Dementia G8 SISTER Hypertension 19 FATHER Myocardial infarction 19 FATHER Respiratory disorder 19 MOTHER Tuberculosis 19 MOTHER No Family History of: AIDS Alcoholism Alzheimer's disease Arthritis Asthma Cancer of mouth Cataracts Colon cancer Completed stroke Diabetes mellitus Drug abuse Glaucoma Kidney disease Parkinson's disease Prostate cancer Psychosocial problem Seizure disorder Review of Systems-General Review of Systems Constitutional: see HPI; No malaise, No weakness EENTM: see HPI, no symptoms reported Respiratory: see HPI; No cough, No dyspnea on exertion, No short of breath Cardiovascular: see HPI; No chest pain; edema Gastrointestinal: No see HPI Reviewed Test Results Reviewed Test Results Lab Laboratory Tests 09/07/22 16:03: B-Type Natriuretic Peptide 281.9H ECG Impression ECG Initial ECG Impression: Atrial Fibrillation Physical Exam Physical Exam Vital Signs Vital Signs - First Documented 09/07/22 09/07/22 05:40 13:15 Temp 35.8 Pulse 98 Resp 20 B/P (MAP) 156/91 (112) Pulse Ox 95 O2 Delivery Room Air O2 Flow Rate 10.00 Capillary Refill : Less Than 3 Seconds Height, Weight, BMI Height: 6'1.00" Weight: 240lbs. 0.0oz. 108.002781qu; 35.93 BMI Method:Stated General Appearance: No Apparent Distress, WD/WN Respiratory: Lungs Clear, No Accessory Muscle Use, No Respiratory Distress Cardiovascular: Regular Rate, Rhythm, No Murmur Gastrointestinal: Abnormal Bowel Sounds (absent), Distended; No Guarding, No Rebound; Tenderness (diffuse) Extremity: Pedal Edema, Swelling (2+ bilateral lower extremity) Neurologic/Psychiatric: Alert, Oriented x3 A/P-Cardiology Admission Diagnosis Large bowel obstruction CHF SSS/afib Chronic peripheral edema. Assessment/Plan Large bowel obstruction, s/p decompressive colonoscopy. Patient reports BM this morning and feeling much improved. Recent Left knee replacement Sick sinus syndrome, permanent atrial fibrillation. Currently asymptomatic. EKG done today showing afib, rate controlled, continue to monitor. [id number] score is 5, yearly risk of stroke without oral anticoagulation is 6.7 percent. Maintained on Eliquis. Continue to monitor Congestive heart failure, 2D echo was done on October 06, 2020 showing normal LV size with EF 45 to 50%. Grade 2 diastolic dysfunction, dilated left atrium, prominent right heart chambers, mild mitral regurgitation, mild aortic regurgitation, mild to moderate tricuspid regurgitation, PA pressure 40 to 45 mmHg. I will reevaluate 2D Echo History of cardiac catheterization done in October 2010 showing nonischemic cardiomyopathy with normal coronaries and normal thoracic aorta and aortic root. Stress test done in November 2018 showing good exercise tolerance for 3 minutes and 30 seconds on Beny protocol, diaphragmatic attenuation with typical male pattern with no significant ischemia or infarction, continue to monitor Hypertension, controlled, continue to monitor. Hyperlipidemia, lipids are well controlled. Most recent lipid profile done April 2022. Peripheral edema, chronic, restart home Lasix and continue to monitor. History of palpitation with frequent premature ventricular contractions, reporting improvement. Carotid stenosis, mild 139 percent stenosis bilaterally, last ultrasound was done in September 2021 Thank you for allowing us to participate in the management of Mr. Valencia. This is Scott Barrera PA-C, as a scribe for Dr. Hernandez. Patient was seen and evaluated with Scott, I interviewed and examined the patient, discussed the management plan and agree with the current scribed note Patient was hospitalized for large bowel obstruction, had decompressive colon oscopy yesterday Had a bowel movement this morning and feeling better Had a recent knee surgery and recovering well Having chronic pedal edema, I gave him Lasix 40 mg IV and restart home medication with Lasix Continue with exercise. Monitor blood pressure No arrhythmia was detected. Patient has underlying permanent atrial fibrillation, maintained on Eliquis. SCOTT BANEGAS Sep 08, 2022 08:18 MURTAZA HERNANDEZ MD Sep 08, 2022 11:45
[2022-09-08] MEDS: APIXABAN 5 MG (ELIQUIS) TABLET PO SCH (08:45)
[2022-09-08] MEDS ORDERED: amLODIPine 5 MG (NORVASC) TAB PO SCH (09:00)
[2022-09-08] MEDS ORDERED: FUROSEMIDE 40 MG/4 ML INJ (LASIX) IVP NR (09:00)
--- NOTE | 2022-09-08 09:57 | Discharge Summary ---
Diagnosis/Chief Complaint Date of Admission Sep 07, 2022 at 07:43 Date of Discharge Admission Diagnosis Large bowel obstruction Primary Care Ozzy Meraz MD Discharge Summary Discharge Physical Exam Allergies: Coded Allergies: No Known Drug Allergies (Verified , 08/31/22) Vitals & I&Os Vital Signs Date Time Temp Pulse Resp B/P (MAP) Pulse Ox O2 Delivery O2 Flow Rate FiO2 09/08/22 12:09 36.1 80 20 162/76 (104) 96 Room Air 09/08/22 03:20 2.00 General Appearance: No Apparent Distress, WD/WN Cardiovascular: Regular Rate, Rhythm, No Murmur Gastrointestinal: Normal Bowel Sounds, Soft Neurologic/Psychiatric: Alert, Oriented x3 Hospital Course Pt was admitted due to concern for large bowel obstruction. He was seen by polo rogel and underwent decompressive colonoscopy which revealed Oglivies. His symptoms were resolved following that procedure. He was started on reglan and had a BM morning of DC and was requesting DC home. He was discharged home in stable and improved condition to follow up with Dr Meraz. Labs (last 24 hrs) Laboratory Tests 09/07/22 16:03: B-Type Natriuretic Peptide 281.9H Patient resulted labs reviewed. Imaging: Reviewed Imaging Report Discussion & Recommendations Discharge Planning: >30 minutes discharge planning Discharge Home Medications: Active Scripts Active Reported Carvedilol 6.25 Mg Tablet 6.25 Mg PO BID K-Tab ER (Potassium Chloride) 10 Meq Tablet.er 10 Meq PO DAILY Flomax (Tamsulosin HCl) 0.4 Mg Cap 0.4 Mg PO DAILY Linzess (Linaclotide) 72 Mcg Capsule 72 Mcg PO DAILY Eliquis (Apixaban) 5 Mg Tablet 5 Mg PO BID Irbesartan 300 Mg Tablet 300 Mg PO DAILY Amlodipine Besylate 5 Mg Tablet 5 Mg PO DAILY Furosemide 40 Mg Tablet 40 Mg PO DAILY Instructions to patient/family Please see electronic discharge instructions given to patient. KRYSTEN GIRALDO MD Sep 08, 2022 09:57
--- NOTE | 2022-09-08 10:17 | Discharge Inst-Simple/Standard ---
Discharge Inst-Standard Discharge Medications New, Converted or Re-Newed RX: Transmitted to Pharmacy Patient Instructions/Follow Up Plan of Care/Instructions/FU: Please continue to take your medications as written. Please follow up with your primary care doctor to follow up this hospital stay. Activity as Tolerated: Yes Discharge Diet: No Restrictions Return to The Hospital For: Chest pain, shortness of breath, fever, weakness, if you feel you are getting worse. KRYSTEN GIRALDO MD Sep 08, 2022 10:17
[2022-09-08] MEDS: NS IV 1000 ML 1,000 ML IV SCH (11:02)
[2022-09-08 12:09] VITALS: BP 162/76
[2022-09-08 16:28] VITALS: BP 145/70
[2022-09-08 16:45] VITALS: BP 145/70
== END 2022-09-08 16:45 | disposition home or self-care (01) ==
LOC: EDUNIT# 05:38 → ER 05:40 → 4TH 07:43 → INTOOBSV 07:43
PROVIDERS: ADMIT Internal Medicine; ATTEND Internal Medicine
DX: K59.81 Ogilvie syndrome (principal); K64.1 Second degree hemorrhoids; K64.4 Residual hemorrhoidal skin tags; N40.0 Benign prostatic hyperplasia without lower urinary tract symptoms; K56.609 Unspecified intestinal obstruction, unspecified as to partial versus complete obstruction; G47.33 Obstructive sleep apnea (adult) (pediatric); K58.9 Irritable bowel syndrome, unspecified; I11.0 Hypertensive heart disease with heart failure; I50.9 Heart failure, unspecified; I48.0 Paroxysmal atrial fibrillation; Z99.81 Dependence on supplemental oxygen; Z96.652 Presence of left artificial knee joint
CPT/HCPCS: 45378; 74176; 80053; 83880; 85007; 85027; 96375 ×2; 96376 ×2; 99284; G0378; 36415

== ENCOUNTER → 2022-09-14 | Outpatient (CLI) | payer MEDICARE ==
--- NOTE | 2022-09-14 11:17 | Diagnostic Imaging Report ---
INDICATION: History of effusion. Followup. COMPARISON: CT dated 09/07/2022 FINDINGS: Frontal and lateral radiographic views of the chest were obtained and show mild to moderate cardiomegaly. Pulmonary vasculature however is within normal limits. There is also mild right effusion and small left basilar effusion. No pneumothorax is seen. Osseous structures show no acute abnormalities. IMPRESSION:. Cardiomegaly with bibasilar effusions, right greater than left. Dictated by: Dictated on workstation # [id number]
== END ==
LOC: RAD 10:06
PROVIDERS: ATTEND Internal Medicine
DX: I51.7 Cardiomegaly (principal); J91.8 Pleural effusion in other conditions classified elsewhere
CPT/HCPCS: 71046